=== PATIENT | female | born 1935 | race African-American/Black ===

== ENCOUNTER 2016-06-27 02:26 | Inpatient (IN) | payer MEDICARE, OTHER ==
[2016-06-27] VITALS (19 sets, daily range): BP systolic 132–151; BP diastolic 66–106; Ht 167.6 cm; Wt 57.5 kg
[~2016-06-27] VITALS: Ht 167.6 cm; Wt 57.5 kg
[~2016-06-27 02:26] MED LIST: APRESOLINE10 MG PO; ASPIRIN 81 MG E81 MG PO; CATAPRES0.1 MG PO; LASIX20 MG PO; LORTAB 5/500 TA1 TA2 PO; NORVASC10 MG PO; PRAVACHOL40 MG PO; SODIUM BICARBO650 MG NG; TUMS500 MG PO; ULTRAM50 MG PO
[2016-06-27 03:27] LABS: BASOPHILS 0.4 % (0.0-2.0); EOSINOPHILS 1.4 % (0-7); HEMATOCRIT 32.9 % (36.0-48.0); IMMATURE GRANULOCYTES 0.4 % (0-5); LYMPHOCYTES 12.9 % (15-50); MCH 29.2 pg (26.0-34.0); MCHC 30.4 g/dL (31.0-37.0); MCV 95.9 fL (80.0-100.0); MEAN PLATELET VOLUME 10.1 fL (7.4-10.4); MONOCYTES 3.6 % (2-11); NEUTROPHILS 81.3 % (40-80); PLATELET COUNT 187 10x3/uL (130-400); RBC 3.43 10x6/uL (4.00-5.40); RDW 15.4 % (11.5-14.5)
[2016-06-27 03:36] LABS: ALBUMIN 3.4 g/dL (3.4-5.0); ANION GAP 20.7 mmol/L (8-16); BILIRUBIN - TOTAL 0.42 mg/dL (0.2-1.3); CALCIUM 9.6 mg/dL (8.5-10.1); CREATININE - SERUM 9.7 mg/dL (0.6-1.3); POTASSIUM - SERUM 3.7 mmol/L (3.5-5.1); PROTEIN - SERUM 7.7 g/dL (6.4-8.2)
[2016-06-27 03:56] LABS: TROPONIN-I 0.103 ng/mL (0.000-0.060)
--- NOTE | 2016-06-27 05:26 | NUR ---
PT RECEIVED FROM ER. REPORT RECEIVED FROM ROXANNE DILLARD.PT ADMITTED WITH RESP. DISTRESS. HAS HX OF CHF, AND IS A DIALYSIS PT. DR SIBLEY IS HER USUAL RENAL DOCTOR. HAS RIGHT HAND SALINE LOCK IV. PT WAS ON 60% BIPAP IN ER. NOW AT 6L OXYMISER IN ICU. SAT 98%. PT NOW ABLE TO SPEAK AND ANSWER QUESTIONS. ALERT AND ORIENTED X 4. PT DAUGHTER AT BEDSIDE. SET PASSWORD "PHELPS". PT HAS LEFT UPPER ARM FISTULA, AND HAD ELEVATED PROBNP, AND TROPONIN LEVELS IN ER. PT STILL HAS SHALLOW RESPIRATIONS, AND HAS CRACKLES PRESENT IN MIDDLE AND LOWER LOBES BILAT. VSS WILL CONTINUE TO MONITOR.
--- NOTE | 2016-06-27 07:15 | NUR ---
PT AWAKE AND ALERT. CONVERSANT. SAYS BREATHING MUCH BETTER THAN WHEN FIRST CAME IN. HAS RALES IN LEFT UPPER LOBE, OTHER LOBES CLEAR. NO DISTRESS NOTED. PT ON 6L OXYMIZER.
--- NOTE | 2016-06-27 10:32 | NUR ---
DIALYSIS IN PROGRESS. PT GIVEN A PHONE FOR HER ROOM SO THAT SHE MAY TALK WITH FAMILY.
--- NOTE | 2016-06-27 10:54 | NUR ---
MARKUS KONG PAGED REGARDING H/P REQUEST THAT TOÑITO HAD NOTED. SHE IS NOT AT HOSPITAL AND UNABLE TO DO. SHE WILL LET DR SIBLEY KNOW SHE IS UNABLE.
--- NOTE | 2016-06-27 12:47 | NUR ---
Mrs. Vásquez had bedside hemodialysis today via her left upper arm av fistula form 0830 until 1230. Average blood flow was 400 mls/minute. Net fluid removed today was only 1000 mls due to frequent cramping. Post vital signs were:B/P: 142/77, HR: 71, Temp: 98.0, Resps: 18.
[2016-06-27] MEDS ORDERED: HYDRALAZINE HCL10 MG PO (16:06)
[2016-06-27] MEDS ORDERED: RENA-VITE TABL0.8 MG PO (16:10)
[2016-06-27] MEDS ORDERED: MIRALAX17 GM PO (16:10)
[2016-06-27] MEDS ORDERED: ZOFRAN4 MG PO (16:11)
[2016-06-27] MEDS ORDERED: TESSALON PERLE100 MG PO (16:12)
--- NOTE | 2016-06-27 19:00 | NUR ---
REPORT RECEIVED, AND ASSESSMENT COMPLETED. PT ON NC @ 6L. SAT 97%. ABLE TO AMBULATE TO BEDSIDE COMMODE. VSS. WILL CONTINUE TO MONITOR.
--- NOTE | 2016-06-27 21:00 | NUR ---
2100 MEDS GIVEN. NO HYDRALAZINE IN PYXIS OR IN GLOBAL FIND. NOTIFIED PHARMACY. WILL ADMINISTER UPON ITS ARRIVAL.
--- NOTE | 2016-06-27 23:02 | NUR ---
REASSESSMENT COMPLETED. SEE ASSESSMENT FOR FULL DETAILS. SPOKE WITH DR BEST AND FSBS WILL BE DISCONTINUED. NO OTHER CHANGES AT THIS TIME. VSS. WILL MONITOR.
[2016-06-28] VITALS (12 sets, daily range): BP systolic 89–164; BP diastolic 49–97
--- NOTE | 2016-06-28 01:21 | NUR ---
PT SLEEPING IN ROOM. NO CHANGES AT THIS TIME. VSS. WILL CONTINUE TO MONITOR.
--- NOTE | 2016-06-28 03:00 | NUR ---
PT ASLEEP IN ROOM. NO CHANGES IN STATUS AT THIS TIME. VSS. REASSESSMENT COMPLETED. SEE ASSESSMENT FOR DETAILS.
--- NOTE | 2016-06-28 05:26 | NUR ---
LAB IN ROOM FOR AM DRAW. NO OTHER CHANGES AT THIS TIME. VSS. WILL CONTINUE TO MONITOR.
[2016-06-28 05:56] LABS: BASOPHILS 0.4 % (0.0-2.0); HEMATOCRIT 27.7 % (36.0-48.0); HEMOGLOBIN 8.7 g/dL (12-16); IMMATURE GRANULOCYTES 0.2 % (0-5); LYMPHOCYTES 15.5 % (15-50); MCH 28.8 pg (26.0-34.0); MCHC 31.4 g/dL (31.0-37.0); MCV 91.7 fL (80.0-100.0); MEAN PLATELET VOLUME 10.2 fL (7.4-10.4); MONOCYTES 9.6 % (2-11); NEUTROPHILS 72.3 % (40-80); PLATELET COUNT 168 10x3/uL (130-400); RBC 3.02 10x6/uL (4.00-5.40); RDW 15.4 % (11.5-14.5); WBC 4.6 10x3/uL (4.8-10.8)
[2016-06-28 06:42] LABS: CALCIUM 9.9 mg/dL (8.5-10.1); PHOSPHOROUS 5.4 mg/dL (2.5-4.9)
[2016-06-28 06:44] LABS: ANION GAP 13.7 mmol/L (8-16); CARBON DIOXIDE 30.1 mmol/L (21.0-32.0); CREATININE - SERUM 6.5 mg/dL (0.6-1.3); POTASSIUM - SERUM 4.8 mmol/L (3.5-5.1)
--- NOTE | 2016-06-28 10:14 | NUR ---
REPORT CALLED TO NISHANT ORTIZ ON [facility]. PATIENT WILL BE TAKEN VIA WHEELCHIAR TO ROOM 2130.
--- NOTE | 2016-06-28 10:45 | NUR ---
1025-RECEIVED VIA WHEELCHAIR TO ROOM WITH PORTABLE OXYGEN FROM ICU. DENIES ANY SHORTNESS OF BREATH OR DISCOMFORT. LEFT AVR SEEN WITH + BRUIT AND THRILL. ON 3L PER NC. WILL PLACE ON HEART MONITOR ORDERED.
--- NOTE | 2016-06-28 10:47 | NUR ---
1035- PLACED ON HEART MONITOR SHOWING SR, HR 69.
--- NOTE | 2016-06-28 14:04 | NUR ---
DENIES NEEDS AT PRESENT TIME, WILL CONTINUE TO MONITOR.
--- NOTE | 2016-06-28 15:18 | NUR ---
Patient Name: MILAGRO WALKER Admission Status: ER Accout number: [id number] Admission Date: 06-27-2016 : 1935 Admission Diagnosis: Attending: REMINGTON Current LOS: 1 Anticipated DC Date: 06-29-2016 Planned Disposition: Home Primary Insurance: MEDICARE A & B Discharge Planning Comments: * Is the patient Alert and Oriented? Yes 0 * How many steps to enter\exit or inside your home? NONE 0 * PCP DR. SIBLEY 0 * Pharmacy Shoulder Options, [facility] 0 * Preadmission Environment Home Alone 0 * ADLs Independent 0 * Equipment None 0 * Other Equipment NO MEDICAL EQUIPMENT PROVIDER PREFERENCE 0 * List name and contact numbers for known caregivers / representatives who currently or will assist patient after discharge: EMERALD MONSALVE, DAUGHTER, 0 * Community resources currently utilized Other 0 * Please name any agencies selected above. OUTPATIENT DIALYSIS, [facility], M/W/F, 0640AM, DRIVES SELF TO AND FROM DIALYSIS 0 * Additional services required to return to the preadmission environment? No 0 * Can the patient safely return to the preadmission environment? Yes 0 * Has this patient been hospitalized within the prior 30 days at any hospital? No 0 CM MET WITH PT IN ROOM TO DISCUSS DISCHARGE PLANNING AND NEEDS. PT REPORTS LIVING AT HOME INDEPENDENTLY AND ALONE. PT HAS NO MEDICAL EQUIPMENT AND NO OUTSIDE SERVICES ASSISTING IN THE HOME. PT DRIVES HERSELF TO [facility] ON M/W/ SCHEDULE AT 0640AM. CM DISCUSSED AVAILABILITY OF HOME HEALTH, REHAB SERVICES AND MEDICAL EQUIPMENT. PT DENIES DISCHARGE NEEDS, REPORTS HER DAUGHTER WILL PICK HER UP FOR DISCHARGE HOME. IMPORTANT MESSAGE FROM MEDICARE PROVIDED AND EXPLAINED Explosives Worker: Brandan Rincon
--- NOTE | 2016-06-28 17:35 | NUR ---
PATIENT DENIES NEEDS AT PRESENT TIME. WILL CONTINUE TO MONITOR AND ASSESS OFTEN FOR NEEDS. CALL LIGHT IS IN USE.
--- NOTE | 2016-06-28 19:25 | NUR ---
RECEIVED REPORT, RESERVED L. GONZALEZ MITCHELL,IV-R.HAND-SL, [id number], FAMILY AT BED SIDE, CALL LIGHT IN REACH, BED IS LOW, SRX2, DENIES ANY NEEDS, WILL MONITOR
[2016-06-29 01:10] VITALS: BP 159/73
--- NOTE | 2016-06-29 01:14 | NUR ---
PT LAYING IN BED NO DISTRESS OBSERVED CALL LIGHT INR EACH SRX2 BED LOW AND LOCKED WILL MONITOR
[2016-06-29 04:00] VITALS: BP 154/109
--- NOTE | 2016-06-29 06:07 | NUR ---
PT SITTING IN CHAIR AT SINK WASHING UP, DENIES ANY NEEDS
[2016-06-29 06:38] LABS: HEMATOCRIT 30.8 % (36.0-48.0); HEMOGLOBIN 9.7 g/dL (12-16); IMMATURE GRANULOCYTES 0.2 % (0-5); LYMPHOCYTES 10.3 % (15-50); MCHC 31.5 g/dL (31.0-37.0); MCV 91.9 fL (80.0-100.0); MEAN PLATELET VOLUME 9.8 fL (7.4-10.4); MONOCYTES 11.7 % (2-11); NEUTROPHILS 74.8 % (40-80); PLATELET COUNT 174 10x3/uL (130-400); RBC 3.35 10x6/uL (4.00-5.40); RDW 15.4 % (11.5-14.5)
[2016-06-29 07:11] LABS: ANION GAP 17.6 mmol/L (8-16); CALCIUM 9.5 mg/dL (8.5-10.1); CARBON DIOXIDE 27.2 mmol/L (21.0-32.0); PHOSPHOROUS 5.5 mg/dL (2.5-4.9); POTASSIUM - SERUM 4.8 mmol/L (3.5-5.1)
[2016-06-29 07:13] LABS: CREATININE - SERUM 8.5 mg/dL (0.6-1.3)
--- NOTE | 2016-06-29 07:23 | NUR ---
RECIEVED REPORT ON PATIENT, PATIENT IS ALERT AND ORIENTED AT THIS TIME. PATIENT HAS A R HAND IV THAT IS SL AT THIS TIME. PATIENT IS SR ON MONITOR WITH A RATE OF 72 AT THIS TIME. PATIENT IS WEARING 3L/MIN VIA NC WITH NAD NOTED AT THIS TIME. CHEST RISES AND FALLS EQUALLY. PATIENT DENIES ANY NEEDS OR PAINA T THIS TIME. CPOC
[2016-06-29 08:12] VITALS: BP 145/67
--- NOTE | 2016-06-29 10:31 | NUR ---
TEACHING MATERIAL FOR CHF PROVIDED TO PATIENT
--- NOTE | 2016-06-29 10:35 | NUR ---
PATIENT GONE TO DIAYLSIS. CPOC
--- NOTE | 2016-06-29 14:30 | NUR ---
PATIENT BACK FROM DIAYLSIS. DENIES ANY NEEDS OR PAIN AT THIS TIME. CPOC
--- NOTE | 2016-06-29 16:00 | NUR ---
PATIENT SITTING UP IN BED, VISITORS AT BEDSIDE. PATIENT DENIES ANY PAIN OR NEEDS. CPOC
[2016-06-29 16:25] VITALS: BP 142/62
--- NOTE | 2016-06-29 18:38 | NUR ---
PATIENT SITTING UP IN BED, FAMILY AT BEDSIDE. PATIENT DENIES ANY NEEDS OR COMPLAINTS. CPOC
--- NOTE | 2016-06-29 19:25 | NUR ---
RECEIVED REPORT, PT ALERT, ORINATED,UP AB ROMA, 02-3L, IV-R. HAND-SL, [id number], DENIES ANY NEEDS, CALL LIGHT IN REACH, BED IS LOW, SRX2
[2016-06-29 20:00] VITALS: BP 137/81
[2016-06-30] VITALS: BP 140/84
--- NOTE | 2016-06-30 02:26 | NUR ---
LYING IN BED WITH CALL LIGHT IN REACH. WILL CONTINUE WITH PLAN OF CARE.
[2016-06-30 04:00] VITALS: BP 133/67
--- NOTE | 2016-06-30 05:11 | NUR ---
SLEEPING, BED IS LOW, SRX2, CALL LIGHT IN REACH
[2016-06-30 06:39] LABS: BASOPHILS 0.5 % (0.0-2.0); EOSINOPHILS 4.7 % (0-7); HEMATOCRIT 30.1 % (36.0-48.0); HEMOGLOBIN 9.3 g/dL (12-16); IMMATURE GRANULOCYTES 0.3 % (0-5); LYMPHOCYTES 17.8 % (15-50); MCH 28.7 pg (26.0-34.0); MCHC 30.9 g/dL (31.0-37.0); MCV 92.9 fL (80.0-100.0); MEAN PLATELET VOLUME 9.9 fL (7.4-10.4); MONOCYTES 12.3 % (2-11); NEUTROPHILS 64.4 % (40-80); PLATELET COUNT 169 10x3/uL (130-400); RBC 3.24 10x6/uL (4.00-5.40); WBC 3.8 10x3/uL (4.8-10.8)
[2016-06-30 07:02] LABS: ANION GAP 12.1 mmol/L (8-16); CALCIUM 9.3 mg/dL (8.5-10.1); CARBON DIOXIDE 33.3 mmol/L (21.0-32.0); CREATININE - SERUM 6.2 mg/dL (0.6-1.3); POTASSIUM - SERUM 4.4 mmol/L (3.5-5.1)
--- NOTE | 2016-06-30 07:15 | NUR ---
RECIEVED REPORT ON PATIENT. PATIENT IS ALERT AND ORIENTED AT THIS TIME, SITTING ON SIDE OF BED. PATIENT HAS A R HAND IV THAT IS SL AT THIS TIME. PATIENT IS SR ON MONITOR WITH A RATE OF 79 AT THIS TIME. PATIENT DENIES ANY PAIN AT THIS TIME, WANTING TO GO HOME. WILL TALK WITH DR. RESTREPO
[2016-06-30 08:43] VITALS: BP 100/47
--- NOTE | 2016-06-30 09:30 | NUR ---
PATIENT GIVEN MORNING MEDICATIONS, ASSESSMENT DONE. PATIENT DENIES ANY PAIN AT THIS TIME. PATIENT BED LOW AND LOCKED. CALL LIGHT IN REACH. WILL CONT TO MONITOR PATIENT. CPOC
--- NOTE | 2016-06-30 12:00 | NUR ---
PATIENT SITTING ON SIDE OF BED EATING LUNCH, DENIES ANY NEEDS AT THIS TIME. CPOC
[2016-06-30 12:11] VITALS: BP 126/62
--- NOTE | 2016-06-30 13:50 | NUR ---
patient ambulating bear way with physcial therapy at this time, cpoc
--- NOTE | 2016-06-30 15:00 | NUR ---
SPOKE WITH PATIENT REGUARDING HOME HEALTH AND DIAN WITH PT SUGGESTED THAT PATIENT NEEDS HOME HEALTH. PATIENT STATES UNDERSTANING, WILL TALK WITH CASE MANAGEMENT. CPOC
[2016-06-30 16:00] VITALS: BP 118/73
--- NOTE | 2016-06-30 16:05 | NUR ---
Patient Name: MILAGRO WALKER Encounter No: [id number] : 1935 Primary Insurance: MEDICARE A & B Anticipated DC Date: 07-01-2016 Planned Disposition: Home DCP follow-up note: CM RECEIVED ORDER FOR DISCHARGE PLANNING. CM MET WITH PT AND DAUGHTER IN ROOM TO DISCUSS DISCHARGE PLANNING AND NEEDS. CM DISCUSSED AVAILABILITY OF HOME HEALTH, REHAB SERVICES AND MEDICAL EQUIPMENT. PT DENIES DISCHARGE NEEDS, STATES THE THERAPIST THOUGHT SHE NEEDS HOME HEALTH BUT PT DOES NOT. CM OFFERED TO HAVE HOME HEALTH CALL PT AFTER DISCHARGE TO CHECK ON HER TO SEE IF SHE NEEDED SERVICES AT HOME AFTER DISCHARGE. PT WILL THINK ABOUT HOME HEALTH AND LET CM KNOW IF SHE CHANGES HER MIND. PT REPORTS HER DAUGHTER WILL PICK HER UP FOR DISCHARGE HOME. IMPORTANT MESSAGE FROM MED[employer]ARE PROVIDED AND EXPLAINED (PT SIGNED AFTER HER DAUGHTER READ IT FOR HER.) Brandan Rincon, CASE MANAGEMENT
--- NOTE | 2016-06-30 18:28 | NUR ---
PATIENT SITTING UP IN BED, DENIES ANY PAIN OR NEEDS. CPOC
--- NOTE | 2016-06-30 19:35 | NUR ---
RESUMED CARE OF PT, FAMILY VISITING, IV-R.HAND-SL, [id number], BED IS LOW, SRX2, CALL LIGHT IN REACH, WILL CONTINUE TO MONITOR
[2016-06-30 20:00] VITALS: BP 121/63
[2016-07-01 04:00] VITALS: BP 135/60
--- NOTE | 2016-07-01 05:03 | NUR ---
CALL LIGHT IN REACH, WILL CONTINUE WITH PLAN OF CARE.
--- NOTE | 2016-07-01 06:20 | NUR ---
SITTING ON SIDE OF BED, DENIES ANY NEEDS, CALL LIGHT IN REACH, BED LOW
--- NOTE | 2016-07-01 07:45 | NUR ---
INTRODUCED MYSELF TO PT PRIMARY RN FOR TODAYS SHIFT. PT IS ALERT AND ORIENTED RESTING QUIETLY IN BED WATCHING TV. RR NONLABORED WITH NC @2L IN PLACE. PT IS BEING DISCHARGED AFTER DIALYSIS TODAY AND IS REQUESTING TO HAVE HER PIV TAKEN OUT. REMOVED R.HAND PIV WITH CATHETER TIP FULLY INTACT, BANDAID OVER INSERTION SITE. PT VOICED THANKS. PT RESTING AND DENIES ANY FURTHER NEEDS AT THIS TIME. CL IN REACH, BED IN LOWEST, SIDE RAILS X2. WILL CPOC.
[2016-07-01 08:55] VITALS: BP 147/64
--- NOTE | 2016-07-01 08:58 | NUR ---
PT LEAVING FOR DIALYSIS AT THIS TIME.
[2016-07-01] MEDS ORDERED: HYDRALAZINE HCL25 MG PO (09:44)
[2016-07-01] MEDS ORDERED: ISOSORBIDE DINI20 MG PO (09:45)
[2016-07-01] MEDS ORDERED: COREG 3.1253.125 MG PO (09:45)
--- NOTE | 2016-07-01 11:11 | EC ---
PATIENT:MILAGRO WALKER DATE OF SERVICE: 06/27/16 SEX: F MEDICAL RECORD: [id number] DATE OF : [birth year] LOCATION:D.M2 D.213 AGE OF PATIENT: 81 ADMISSION DATE: 06/27/16 REFERRING PHYSICIAN: INTERPRETING PHYSICIAN: KARLEY LONDONO MD ECHOCARDIOGRAM REPORT ECHO CHARGES 4 ECHO COMPLETE CLINICAL DIAGNOSIS: CHF ECHOCARDIOGRAPHIC MEASUREMENTS (adult normal given) AC root (d.<3.7cm) 3.3 LV Septum d (<1.2 cm> 1.1 Valve Excursion 1.3 LV Septum (systole) 1.6 Left Atria (s.<4.0cm> 2.8 LVPW d(<1.2cm) 0.9 RV (d.<2.3cm) 2.5 LVPW (sytole) 1.4 LV diastole(<5.6CM) 6.3 MV E-F(>70mm/sec) LV systole 4.6 LVOT Diameter 1.8 MV exc.(>10mm) Est.ejection fraction (50-75%) Pericardial Effusion N DOPPLER: LVIT A 30.0 E 121 LA RVSP 76.2 LVOT 111 AOP1/2T 558.0 Asc. Ao 200 RVOT 86.0 RA PA 94.0 AV Gradient Peak 16.0 AV Mean 7.8 AV Area 1.2 MV Gradient Peak 5.0 MV Mean 1.9 MV Area COMMENTS: Oil Dispatcher: Josep SMITHOE Disability Counselor:2 Dr. Gonzalez TAPE# PACS DATE OF SERVICE: 06/27/2016 Echocardiogram FINDINGS: 1. Left ventricular chamber size is mildly dilated. Left ventricular systolic function is mildly reduced, overall ejection fraction is 40%. 2. Left atrium is within normal limits at 2.8 cm, right atrium and right ventricle chamber sizes are csig-uo-bgnpabghnd dilated. 3. Valvular structures have normal structure and motion. ECHOCARDIOGRAM REPORT [id number] MILAGRO WALKER 4. Doppler interrogation reveals mild aortic insufficiency, moderate mitral regurgitation, hqohuqvt-zv-vplpac tricuspid regurgitation, no other valvular insufficiency or stenosis. Pulmonary systolic pressure is markedly elevated estimated at 76 mmHg. 5. No evidence of pericardial effusion or left ventricular thrombus. TRANSINT:[id number] Voice Confirmation ID: [id number] DOCUMENT ID: [id number] KARLEY LONDONO MD at 1111 CC: [id number] DICTATION DATE: 06/27/16 1235 JUMPBASTING ARMHOLE BASTER: 06/27/16 1406 ADM IN [place] [id number] [place] [id number]
--- NOTE | 2016-07-01 12:56 | NUR ---
PT RETURNED FROM DIALYSIS. RR NONLABORED WITH NC @2L IN PLACE. PT ONLY HAD 1.5L PULLED WITH GOAL OF 2-3L HOWEVER PTS BP DROPPED TO 94/55 SO DIALYSIS NURSE STOPPED. PT RESTING IN ROOM AND DENIES ANY CURRENT PAIN OR NEEDS AT THIS TIME. CL IN REACH, BED IN LOWEST, SIDE RAILS X2. WILL CPOC.
--- NOTE | 2016-07-01 13:00 | NUR ---
HEMODIALYSIS COMPLETED VIA PATIENT'S LUE AVF, 15G NEEDLES, 400 BFR. REMOVED 1.5 LITERS, PATIENT HAD A DROP IN BP TOWARDS END OF TX AND HAD TO STOP PULLING FLUID. BLOOD WAS RETURNED, NEEDLES WERE PULLED, AND HEMOSTASIS WAS ACHEIVED. PATIENT TAKEN BACK TO ROOM VIA WC.
--- NOTE | 2016-07-01 13:36 | NUR ---
DISCHARGE TEACHING DONE. PAPERS SIGNED AND COLLECTED. PT IS RESTING QUIETLY WITH DAUGHTER AT BEDSIDE READY TO TAKE HER HOME. REMOVED TELEMETRY AND RETURNED TO [employer]. NO FURTHER NEEDS.
--- NOTE | 2016-07-08 07:24 | DS ---
PATIENT:MILAGRO WALKER :[birth year] MEDICAL RECORD: [id number] DISCHARGE SUMMARY ADMISSION DATE: 06/27/16 DISCHARGE DATE: 07/01/16 HISTORY OF PRESENT ILLNESS: Ms. Walker is an 81-year-old white female with end-stage renal disease, dialyzing 3 times weekly at [facility], admitted on Monday night prior to her Monday dialysis with shortness of breath. HOSPITAL COURSE: The patient underwent recurrent vigorous dialysis and her shortness of breath improved. She had an echocardiogram that revealed no evidence of pericardial effusion with valvular disease with adequate ejection fraction. She had no chest pain during this time and her symptoms completely resolved with significant lowering of her dry weight. Her telemetry strips were stable and she was ambulatory at the time of discharge. I did substitute the beta blockers and nitrates for her current antihypertensives and she was substituting this at the time of discharge. DISCHARGE DIAGNOSES: 1. Recurrent biventricular heart failure on the basis of volume overload. 2. End-stage renal disease. 3. Hypertension. 4. Chronic anemia. PLAN: The patient will be discharged today after dialysis. She will resume her outpatient dialysis schedule with [facility]. She should continue her renal diet. DISCHARGE MEDICATIONS: Will be Isordil 20 mg at bedtime, Coreg 3.125 b.i.d., hydralazine 25 b.i.d. She will continue Epogen as an outpatient, Nephro-Aleida 1 daily, MiraLax p.r.n., calcium carbonate 1000 mg t.i.d. with meals, baby aspirin 1 daily and her p.r.n. medications. TRANSINT:[id number] Voice Confirmation ID: [id number] DOCUMENT ID: [id number] AVNI SIBLEY MD at 0724 CC: [id number] DICTATION DATE: 07/01/16 0740 HOSPITAL CNA: 07/01/16 0804 DIS IN 07/01/[address] [address]
== END 2016-07-01 13:42 | disposition home or self-care (01) | DRG 291 ==
LOC: D.ER 02:26 → D.M2 04:02 → D.ICU 04:02 → D.M2 06-28 10:16 → EDBD 07-01 13:42
PROVIDERS: Emergency Medicine; ADMIT Internal Medicine Nephrology
DX: I50.33 Acute on chronic diastolic (congestive) heart failure (principal); N18.6 End stage renal disease; J81.1 Chronic pulmonary edema; I12.0 Hypertensive chronic kidney disease with stage 5 chronic kidney disease or end stage renal disease; D63.1 Anemia in chronic kidney disease; E11.9 Type 2 diabetes mellitus without complications

== ENCOUNTER → 2016-08-22 11:09 | Outpatient (CLI) | payer MEDICARE, OTHER ==
[2016-06-27 09:27] VITALS: BMI 22.2
[~2016-08-22 11:09] MED LIST changes: +COREG 3.1253.125 MG PO; +HYDRALAZINE HCL10 MG PO; +HYDRALAZINE HCL25 MG PO; +ISOSORBIDE DINI20 MG PO; +MIRALAX17 GM PO; +RENA-VITE TABL0.8 MG PO; +TESSALON PERLE100 MG PO; +ZOFRAN4 MG PO
== END | disposition home or self-care (01) ==
LOC: EDBD 11:09 → D.RAD 11:09
DX: M54.5 Low back pain (principal); M25.551 Pain in right hip

== ENCOUNTER → 2016-08-26 12:32 | Outpatient (CLI) | payer MEDICARE, OTHER ==
[2016-06-27 09:27] VITALS: BMI 22.2
== END | disposition home or self-care (01) ==
LOC: EDBD 12:32 → D.CT 12:32
DX: M54.5 Low back pain (principal); M25.551 Pain in right hip; I72.9 Aneurysm of unspecified site

== ENCOUNTER 2016-08-31 14:03 | Inpatient (IN) | payer MEDICARE, OTHER ==
[~2016-08-31] VITALS: Ht 167.6 cm; Wt 52.7 kg
--- NOTE | ~2016-08-31 | HEMODYNAMI ---
PATIENT:MILAGRO WALKER MEDICAL RECORD: [id number] : [birth year] [id number] ADMISSION DATE: 08/31/16 Generatedon:09/02/201614:32 Patient name: MILAGRO WALKER Patient #: [id number] SSN: : 06/01/1934 Date of study: 09/02/2016 Page: Of Hemodynamic Procedure Report Patient Data Patient Demographics Procedure consent was obtained First Name: MILAGRO Gender: Female Last Name: AARON : 06/01/1934 [facility] Initial: S Age: 82 year(s) Patient #: [id number] Race: Black Additional ID: [id number] Contact details Address: [address] [place] [address] State: [place] City: [facility] [place] Zip code: [address] Past Medical History Allergies: No known allergies Admission Admission Data Admission Date: 08/31/2016 Admission Time: 14:03 Room #: D.2135 Weight (lbs.): 145 Weight (kg.): 65.77 Procedure Procedure Types Cath Procedure Peripheral Cath Diagnostic Procedure Miscellaneous Procedure Description Procedure Date Procedure Date: 09/02/2016 Procedure Start Time: 13:47 Procedure Staff Name Function Rogers Guardado MD Performing Physician Tanisha Barraza RT Scrub Nava Bazzi RN Nurse Kaye Vergara RT Monitor Debi Garcia RN Nurse Kaye Vergara RT Planer Tailer Procedure Data Cath Procedure Fluoroscopy Diagnostic fluoroscopy Total fluoroscopy Time: 5.7 time: 5.7 min min Diagnostic fluoroscopy Total fluoroscopy dose: 749 dose: 749 mGy mGy Contrast Material Contrast Material Type Amount (ml) Isovue 300 85 Entry Location Entry Primary Successful Side Size Upsize Upsize Entry Closure Succes sful Closure Location (Fr) 1 (Fr) 2 (Fr) Remarks Device Remarks Femoral Exoseal artery Diagnostic catheters Device Type Used For End Catheter Placement Merit Impress 5Fr SIM 1 Catheter Merit ULTRA BOLUS FLUSH 5Fr 65CM catheter Procedure Medications Medication Administration Route Dosage Fentanyl I.V. 50 mcg Versed I.V. 1 mg Fentanyl I.V. 50 mcg Versed I.V. 1 mg Hydralizine I.V. 10 mg Hemodynamics Rest Heart Rate: 50 (bpm) Pressure Samples Time Site Value (mmHg) Purpose Heart Use Rate(bpm) 14:15 AO 174/53(101) Snapshot 45 14:17 AO 145/50(85) Snapshot 43 Snapshots Pre Cath Intra NCS Post Cath Vital Signs Time Heart Resp SPO2 NIBP (mmHg) Rhythm Pain Sedation Rate (ipm) (%) Status Level (bpm) 13:24:14 50 14 189/62(146) NSR 0 (11) 10(A) , No pain 13:28:56 53 14 191/68(149) NSR 0 (11) 10(A) , No pain 13:33:37 56 21 196/74(151) NSR 0 (11) 10(A) , No pain 13:36:46 53 12 193/48(146) NSR 0 (11) 10(A) , No pain 13:41:26 50 12 190/72(142) NSR 0 (11) 10(A) , No pain 13:46:05 63 22 192/76(149) NSR 0 (11) 9(A) , No pain 13:50:45 59 21 100 179/66(144) NSR 0 (11) 9(A) , No pain 13:55:24 51 23 97 186/59(132) NSR 0 (11) 9(A) , No pain 14:00:09 50 19 100 186/55(137) NSR 0 (11) 9(A) , No pain 14:04:51 51 16 100 175/55(134) NSR 0 (11) 9(A) , No pain 14:09:30 50 17 100 182/54(142) NSR 0 (11) 9(A) , No pain 14:14:10 53 21 100 190/61(132) NSR 0 (11) 9(A) , No pain 14:18:53 52 21 187/64(143) NSR 0 (11) 9(A) , No pain 14:23:36 48 13 187/57(137) NSR 0 (11) 9(A) , No pain 14:28:12 56 14 100 172/74(151) NSR 0 (11) 9(A) , No pain Medications Time Medication Route Dose Verified Delivered Reason Notes Effecti taimerrill by by 13:42:04 Versed I.V. 1 mg Debi Debi for sedation Radha Garcia RN RN 13:42:21 Fentanyl I.V. 50 Debi Debi for sedation mcg Radha Garcia RN RN 14:15:59 Fentanyl I.V. 50 Debi Debi for sedation mcg Radha Garcia RN RN 14:16:18 Versed I.V. 1 mg Debi Debi for sedation Radha Garcia RN RN 14:23:16 Hydralizine I.V. 10 mg Debi Debi for Radha Garcia hypertension RN cement handler Log Time Note 13:20:20 Patient Weight : 145 kg 13:20:24 Time tracking: Regular hours 13:20:47 Use device set IR Diagnostic 13:20:50 Sterile Angiographic Pack opened to sterile field. 13:20:52 Bag Decanter opened to sterile field. 13:20:53 Acist Manifold opened to sterile field. 13:20:54 Acist Hand Control opened to sterile field. 13:20:55 Acist Syringe opened to sterile field. 13:22:05 A mPort Impress 5Fr SIM 1 Catheter was advanced over the wire and used for . 13:22:07 Cook BENTSON 145cm guide wire opened to sterile field. 13:22:08 St Farhad 5FR Sheath opened to sterile field. 13:22:09 TUBING, CONTRAST INJCTN HI PRES opened to sterile field. 13:22:20 - 13:22:28 Plan of Care:Hemodynamics will remain stable., Cardiac rhythm will remain stable., Comfort level will be maintained., Respiratory function will remain adequate., Patient/ family verbilizes understanding of procedure., Procedure tolerated without complication., Recovers from procedure without complications.. 13:22:39 Patient received from Med II to IR Alert and oriented. Tansferred to table in Supine position. 13:22:41 Correct patient and procedure confirmed by team. 13:22:43 Signed procedure consent form obtained from patient. 13::44 ECG and BP/O2 sat monitors applied to patient. 13::45 Vital chart was started 13:22:47 Baseline sample Acquired. 13:22:49 Full Disclosure recording started 13:22:50 - 13:22:57 H&P Date Dictated: 09/02/2016 Within 30 days and on chart.. 13:23:01 Pre-procedure instructions explained to patient. 13:23:02 Pre-op teaching completed and patient verbalized understanding. 13:23:08 Family in waiting room. 13:23:12 Patient NPO since Midnight. 13:23:22 Patient allergic to No known allergies 13:23:30 Is the patient allergic to Iodine/contrast media? No. 13:24:20 Is patient on blood thinner?No 13:25:35 Patient diabetic? No. 13:25:36 - 13:25:38 ----Pre-sedation anethsthesia assessment.---- 13:25:42 Previous problem with sedation/anesthesia? No ? 13:25:54 Snore? Yes 13:26:00 Sleep apnea? No 13:26:04 Deviated septum? No 13:26:06 Opens mouth fully? Yes 13:26:08 Sticks out tongue? Yes 13:26:13 Airway obstruction? No ? 13:26:19 Dentures? Yes secure 13:26:36 IV patent on arrival in right forearm with 0.9% NaCl at [facility]. 13:32:03 Pre procedure: right dorsailis pedis pulse Doppler 13:32:07 Pre procedure: right posterior tibial pulse Doppler 13:32:11 Pre procedure: left dorsailis pedis pulse Doppler 13:32:16 Pre procedure: left posterior tibial pulse Doppler 13:32:24 Right groin area was prepped with chlora-prep and draped in sterile fashion 13:32:26 Alarms reviewed by R. N. 13:32:27 Sharps counted by scrub and verified by R.N. 13:32:27 - 13:36:08 Micropuncture VSI 4FR kit opened to sterile field. 13:41:11 A mPort ULTRA BOLUS FLUSH 5Fr 65CM catheter was advanced over the wire and used for . 13:41:15 Physician arrived 13:42:04 Versed 1 mg I.V. was administered by Debi Garcia RN; for sedation; 13:42:21 Fentanyl 50 mcg I.V. was administered by Debi Garcia RN; for sedation; 13:43:02 --------ALL STOP TIME OUT------ 13:43:03 Final Timeout: patient, procedure, and site verified with staff and physician. All members of the team are in agreement. 13:43:14 Physical assessment completed. ASA score P 3 - A patient with severe systemic disease as per Rogers Gaurdado MD. 13:43:20 Sedation plan: IV Moderate Sedation Versed, Fentanyl 13:47:30 Procedure started. 13:47:34 Local anesthetic to right femoral artery with Lidocaine 1% by Rogers Guardado MD.INITIAL ACCESS ONLY 13:47:45 Arterial access obtained using ultrasound guidance. 14:14:17 Zero performed for pressure channel P1 14:14:26 Zero performed for pressure channel P1 14:15:14 Zero performed for pressure channel P1 14:15:59 Fentanyl 50 mcg I.V. was administered by Debi Garcia RN; for sedation; 14:16:18 Versed 1 mg I.V. was administered by Debi Garcia RN; for sedation; 14:23:15 Cordis 5Fr Exoseal opened to sterile field. 14:23:16 Hydralizine 10 mg I.V. was administered by Debi Garcia RN; for hypertension; 14:24:03 A sheath was inserted into the Femoral artery 14:24:03 Sheath removed intact; hemostasis achieved with Exoseal to the Femoral artery. 14:24:08 Procedure ended.(Physican Out) 14:24:43 Fluoroscopy time 05.70 minutes. 14:24:51 Fluoroscopy dose: 749 mGy 14:24:51 Flurop Dose total: 749 14:25:03 Contrast amount:Isovue 300 85ml. 14:25:05 Sharps counted by scrub and verified by R.N. 14:25:21 Procedure and supply charges have been captured, reviewed, submitted an d are correct. 14:32:26 Vital chart was stopped Device Usage Item Name Manufacture Quantity Catalog Number Hospital Part Current Min imal Lot# / Charge Number Stock Stock Serial# Code Sterile Cardinal 1 [id number] 5 Angiographic Health Pack Bag Decanter Microtek 1 2002 [id number] 38992 [id number] 5 Medical Inc. Acist Acist 1 49682 931486 745425 277110 5 Manifold Medical Systems Inc Acist Hand Acist 1 05653 946080 945759 117801 5 Control Medical Systems Inc Acist Syringe Acist 1 04617 875509 311779 202791 20 Medical Systems Inc Merit Impress Merit 1 [id number] 015355 718098 082455 5 5Fr SIM 1 Medical Catheter [facility] 1 [id number] [id number] 5 [id number] 145cm guide wire [facility] Farhad 5FR St Farhad 1 545359 948523 169875 5 [id number] Sheath TUBING, Merit 1 [id number] 466250 205420 604933 5 CONTRAST Medical INJCTN HI PRES Micropuncture VSI VASCULAR 1 [id number] 187065 176245 5 VSI 4FR kit SOLUTIONS Merit ULTRA Merit 1 [id number] 674590 078540 5 BOLUS FLUSH Medical 5Fr 65CM catheter Cordis 5Fr Cardinal 1 [id number] [id number] 226649 [id number] 10 [id number] Exoseal Health Signature Audit [place] Stage Time Signature Unsigned Intra-Procedure 09/02/2016 Kaye Vergara 2:32:24 PM RT(R) Signatures Monitor : Kaye Vergara RT Signature : Date : Time : [facility] [address] [place] [address]
[2016-08-31 14:22] VITALS: BP 142/62; BMI 23.4
[2016-08-31 15:05] LABS: BASOPHILS 1.1 % (0.0-2.0); HEMATOCRIT 34.6 % (36.0-48.0); HEMOGLOBIN 10.9 g/dL (12-16); IMMATURE GRANULOCYTES 0.3 % (0-5); MCH 29.5 pg (26.0-34.0); MCHC 31.5 g/dL (31.0-37.0); MCV 93.8 fL (80.0-100.0); MEAN PLATELET VOLUME 9.2 fL (7.4-10.4); MONOCYTES 10.7 % (2-11); NEUTROPHILS 65.9 % (40-80); PLATELET COUNT 178 10x3/uL (130-400); RBC 3.69 10x6/uL (4.00-5.40); RDW 16.2 % (11.5-14.5); WBC 3.6 10x3/uL (4.8-10.8)
--- NOTE | 2016-08-31 15:16 | NUR ---
PT ASSESSMENT COMPELTED PT LAYING IN BED NO DISTRESS OBSERVED CALL LIGHT IN REACHS RX2 BED LOW AND LOCKED PT AMBULATORY WITH NO DISTRESS OBSERVED RESPERATIONS EVEN AND UNLABORED PT DENIES NEEDS OR WANTS AT THIS TIME WILL MONITOR
[2016-08-31 15:36] LABS: INR 1.01 (0.85-1.17); PROTIME 13.1 SECONDS (11.6-15.0)
[2016-08-31 15:37] LABS: ALBUMIN 3.3 g/dL (3.4-5.0); ANION GAP 13.8 mmol/L (8-16); BILIRUBIN - TOTAL 0.28 mg/dL (0.2-1.3); CALCIUM 8.6 mg/dL (8.5-10.1); CARBON DIOXIDE 31.1 mmol/L (21.0-32.0); CREATININE - SERUM 4.5 mg/dL (0.6-1.3); POTASSIUM - SERUM 3.9 mmol/L (3.5-5.1); PROTEIN - SERUM 6.9 g/dL (6.4-8.2)
[2016-08-31 16:00] VITALS: BP 142/52
--- NOTE | 2016-08-31 19:30 | NUR ---
RESUMED CARE OF PT, ON ROOM AIR, IV-R.HAND-SL, RESERVED L.ARM, A&O, UP ABLIB, DENIES ANY NEEDS, CALL LIGHT IN REACH, WILL CONTINUE TO MONITOR
[2016-08-31 21:39] VITALS: BP 124/51
--- NOTE | 2016-09-01 00:37 | NUR ---
CERAMIC CAPACITOR PROCESSOR AT BEDSIDE TO OBTAIN VITALS, CALL LIGHT IN REACH. WILL CONTINUE WITH PLAN OF CARE.
[2016-09-01 01:40] VITALS: BP 119/41
[2016-09-01 04:56] VITALS: BP 134/60
[2016-09-01 06:49] LABS: BASOPHILS 0.8 % (0.0-2.0); EOSINOPHILS 3.1 % (0-7); HEMATOCRIT 32.6 % (36.0-48.0); HEMOGLOBIN 10.1 g/dL (12-16); IMMATURE GRANULOCYTES 0.3 % (0-5); LYMPHOCYTES 22.8 % (15-50); MCV 93.7 fL (80.0-100.0); MEAN PLATELET VOLUME 9.4 fL (7.4-10.4); MONOCYTES 14.1 % (2-11); NEUTROPHILS 58.9 % (40-80); PLATELET COUNT 178 10x3/uL (130-400); RBC 3.48 10x6/uL (4.00-5.40); RDW 16.2 % (11.5-14.5); WBC 3.6 10x3/uL (4.8-10.8)
[2016-09-01 07:03] LABS: INR 1.03 (0.85-1.17); PROTIME 13.4 SECONDS (11.6-15.0)
[2016-09-01 07:06] LABS: ANION GAP 11.4 mmol/L (8-16); CALCIUM 9.1 mg/dL (8.5-10.1); CARBON DIOXIDE 30.8 mmol/L (21.0-32.0); POTASSIUM - SERUM 4.2 mmol/L (3.5-5.1)
[2016-09-01 07:09] LABS: CREATININE - SERUM 6.2 mg/dL (0.6-1.3)
--- NOTE | 2016-09-01 07:19 | HP ---
PATIENT: MILAGRO WALKER MEDICAL RECORD: [id number] ACCOUNT: [id number] LOCATION:D. D.2135 : [birth year] ADMISSION DATE: 08/31/16 HISTORY AND PHYSICAL EXAMINATION ADMISSION FOR: Abdominal pain and flank pain. HISTORY OF PRESENT ILLNESS: This is a nice ESRD patient born in 1934 and was having pain in her left flank or abdominal area rotating down to her left hips. 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 Dr. 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 We did attempt to admit her August 30, she had declined, but she is ready for admission today and will hopefully present to the hospital for evaluation. PAST MEDICAL HISTORY: 1. ESRD on dialysis. 2. Hysterectomy and fistula placement. 3. Hypertension. 4. Hyperphosphatemia. 5. Chronic constipation. 6. Secondary hyperparathyroidism. 7. Edema. HOME MEDICATIONS: Lasix, which she may not be taking now. She is no longer taking amlodipine 10 mg at night. She is taking Hydralazine 25 mg in the morning, but not on dialysis days, MiraLax p.r.n., Zofran 4 mg p.r.n., Tums 1000 mg t.i.d. with meals and aspirin 81 a day. She is no longer taking her pravastatin, but does have a history of hyperlipidemia as well. FAMILY HISTORY: One of her parents had diabetes, she was unsure which one and natural child has diabetes. No known siblings. SOCIAL HISTORY: Never smoked, no alcohol, no drug use. REVIEW OF SYSTEMS: As described above. No headache, fever, chills, nausea or vomiting at this time. No chest pain or shortness of breath. No problems with her dialysis access or dialysis process, no hematuria, no melena or hematochezia. All review of systems are negative. PHYSICAL EXAMINATION: VITAL SIGNS: She is 125/72, 72 heart rate, 18 respiratory rate. GENERAL: She is alert and oriented to person, place and dialysis. HEENT: Grossly clear. Cranial nerves II through XII intact. NECK: No JVD or thyromegaly. CHEST: Regular rhythm. LUNGS: Clear. ABDOMEN: Nontender with no guarding or rebound. No CVA tenderness, no lumbar tenderness in her spine. EXTREMITIES: Trace lower extremity edema. Negative Babinski. HISTORY AND PHYSICAL [id number] MILAGRO WALKER LABORATORY DATA: CMP, CBC, INR has been ordered. CTA was done 08/26/2016 and some of this has been resulted and available in the computer at [place]. ASSESSMENT AND PLAN: 1. Abdominal pain and back pain. I appreciate Dr. Aguilar reviewing her CTA was concerned about her SFA and celiac artery and he recommended IR evaluation as she is having abdominal pain. It was unclear of the exact area in her pain, but we will be cautious and have IR consulted. 2. End-stage renal disease, had dialysis today, Monday; once Monday, Monday, Monday with her fistula. 3. Hypertension, now on 2 medications, ____ hydralazine. She is also on the medication list that the nurse ____ to me on isosorbide dinitrate 20 mg at night. 4. Chronic constipation. We will continue her MiraLax. 5. Anemia of chronic kidney disease. We will continue erythropoietin prescription as her hemoglobin is less than 12. 6. Hyperphosphatemia. We will continue her Tums 1000 mg t.i.d. 7. Secondary hyperparathyroidism, she has prolonged admission. We will continue vitamin D supplementation. PLAN: 1. Please see orders. 2. Appreciate INR. 3. CMP, CBC, INR. TRANSINT:[id number] Voice Confirmation ID: [id number] DOCUMENT ID: [id number] ANGUS BEST MD at 0719 CC: [id number] DICTATION DATE: 08/31/16 1454 RECORD PRODUCER: 08/31/16 181 ADM IN [place] [address] [place] [address]
--- NOTE | 2016-09-01 07:51 | NUR ---
AM ROUNDING- PT SITTING UP IN BED WITH EYES OPEN RESTING. PT IS ALERT AND ORIENTED. ON ROOM AIR. NO MONITOR. RESERVE LEFT ARM FOR AVF. IV SEEN TO RIGHT HAND THAT IS CURRENTLY SALINE LOCKED. NO NEED AT CURRENT TIME. WILL CONTINUE TO MONITOR AND CONTINUE WITH PLAN OF CARE.
[2016-09-01 08:01] VITALS: BP 148/98
--- NOTE | 2016-09-01 10:41 | NUR ---
RATIONALE FOR SCD'S EXPLAINED. REFUSED SCD'S.
[2016-09-01 12:24] VITALS: BP 167/61
[2016-09-01 13:30] VITALS: Ht 167.6 cm; Wt 52.7 kg
--- NOTE | 2016-09-01 14:02 | NUR ---
0930- UPON DOING DAILY SHIFT ASSESSMENT WHILE FLUSHING PTS IV TO RIGHT HAND, NOTICED SWELLING AND RESISTANCE. WILL ATTEMPT TO RESITE PT AND CONTINUE TO MONITOR. 1404- REMOVED PTS IV TO RIGHT HAND WITH CATH TIP INTACT, COVERED SITE WITH 2X2 GUAZE AND SECURED SITE WITH TAPE. TOLERATED WELL. RESITED PT TO RIGHT FOREARM X1 STICK WITH 22G IV CATHETER. TOLERTED WELL. PLACED ORANGE SWAB CAP ON END TO BE SALINE LOCKED. WILL CONTINUE TO MONITOR.
[2016-09-01 16:00] VITALS: BP 163/61
--- NOTE | 2016-09-01 16:55 | NUR ---
CONSENTS FOR PROCEDURE SIGNED BY PT AND PLACED IN CHART. NPO AFTER MIDNIGHT SIGN PLACED ON PTS DOOR. INSTRUCTED PT TO NOT EAT OR DRINK ANYTHING AFTER MIDNIGHT TONIGHT, PT AGREED. WILL PASS THIS ALONG IN REPORT. WILL CONTINUE TO MONITOR.
--- NOTE | 2016-09-01 17:33 | NUR ---
PT SITTING UP IN BED WITH EYES OPEN RESTING CURRENTLY EATING HER DINNER TRAY. GUEST AT BEDSIDE. DENIES ANY NEED AT CURRENT TIME. WILL CONTINUE TO MONITOR AND CONTINUE WITH PLAN OF CARE.
[2016-09-01 20:00] VITALS: BP 185/64
[2016-09-02] VITALS: BP 140/61
[2016-09-02 04:00] VITALS: BP 153/59
[2016-09-02 05:01] LABS: BASOPHILS 1.3 % (0.0-2.0); EOSINOPHILS 3.5 % (0-7); HEMATOCRIT 32.8 % (36.0-48.0); HEMOGLOBIN 10.1 g/dL (12-16); IMMATURE GRANULOCYTES 0.3 % (0-5); LYMPHOCYTES 29.3 % (15-50); MCH 28.9 pg (26.0-34.0); MCHC 30.8 g/dL (31.0-37.0); MCV 93.7 fL (80.0-100.0); MEAN PLATELET VOLUME 9.5 fL (7.4-10.4); MONOCYTES 14.4 % (2-11); NEUTROPHILS 51.2 % (40-80); PLATELET COUNT 194 10x3/uL (130-400); RDW 15.9 % (11.5-14.5); WBC 3.8 10x3/uL (4.8-10.8)
[2016-09-02 05:10] LABS: PROTIME 13.1 SECONDS (11.6-15.0)
[2016-09-02 05:21] LABS: CALCIUM 9.5 mg/dL (8.5-10.1); CARBON DIOXIDE 31.6 mmol/L (21.0-32.0); PHOSPHOROUS 5.7 mg/dL (2.5-4.9); POTASSIUM - SERUM 4.6 mmol/L (3.5-5.1)
[2016-09-02 05:22] LABS: CREATININE - SERUM 8.2 mg/dL (0.6-1.3)
--- NOTE | 2016-09-02 07:15 | NUR ---
RESTING QUIETLY NAD NOTED
--- NOTE | 2016-09-02 07:52 | NUR ---
ASSESSMENT DONE. PT SITTING UP IN BED READING, A/O. PT NPO FOR IR PROCEDURE THIS AM. DENIES ABD PAIN. NO DISTRESS NOTED. DENIES NEEDS. CALL LIGHT WITH IN REACH. WILL CONT. TO MONITOR.
[2016-09-02 08:22] VITALS: BP 150/70
[2016-09-02 12:42] VITALS: BP 156/57
--- NOTE | 2016-09-02 13:17 | NUR ---
PT TO SPECIALS FOR PROCEDURE VIA BED. PT'S DAUGHTER IN ROOM.
--- NOTE | 2016-09-02 14:45 | NUR ---
PT BACK IN ROOM. SLEEPY, AWAKENS TO VOICE. DRESSING TO RIGHT GROIN CLEAN DRY. NO BLEEDING. NO S/S OF HEMATOMA. PT'S DAUGHTER IN ROOM. INSTRUCTED PT AND HER DAUGHTER THAT PT MUST REMAIN FLAT FOR 4 HOURS WITHOUT BENDING RIGHT LEG. INFORMED PT THAT SHE WILL NEED TO USE BEDPAN IF SHE NEEDS TO URINATE. UNDERSTANDING VERBALIZED. CALL LIGHT WITH IN REACH. WILL CONT. TO MONITOR
--- NOTE | 2016-09-02 15:06 | NUR ---
RIGHT PEDAL PULSE PALPABLE.
[2016-09-02 16:55] VITALS: BP 143/50
--- NOTE | 2016-09-02 17:03 | NUR ---
PT C/O BACK PAIN D/T LAYING FLAT. MEDS GIVEN. DRESSING TO RT GROIN REMAINS CLEAN,DRY, AND INTACT. NO BLEEDING OR S/S OF HEMATOMA. RT PEDAL PULSE PAPLABLE. DAUGHTER AT BEDSIDE. CALL LIGHT WITH IN REACH. WILL CONT. TO MONITOR.
--- NOTE | 2016-09-02 18:03 | NUR ---
PT A/O, REMAINS IN PRONE POSITION. DRESSING TO RIGHT GROIN INTACT, NO S/S OF HEMATOMA. RT PEDAL PULSE PALPABLE. STATES BACK PAIN HAS IMPROVED WITH MEDS. CALL LIGHT WITH IN REACH. WILL CONT. TO MONITOR.
--- NOTE | 2016-09-02 19:49 | NUR ---
RECEIVED REPORT, SITTING IN CHAIR, IV-RFA-SL, RESERVED L.ARM, DENIES ANY NEEDS, CALL LIGHT IN REACH, WILL CONTINUE TO MONITOR, DAUGHTER AT BEDSIDE
--- NOTE | 2016-09-02 19:53 | NUR ---
RECEIVED REPORT, SITTING IN CHAIR, CALL LIGHT IN REACH, DAUGHTER AT BEDSIDE, IV-RFA-SL, DENIES ANY NEEDS, CALL LIGHT IN REACH
[2016-09-02 21:31] VITALS: BP 122/50
[2016-09-03 05:31] LABS: BASOPHILS 0.8 % (0.0-2.0); EOSINOPHILS 3.8 % (0-7); HEMATOCRIT 33.5 % (36.0-48.0); HEMOGLOBIN 10.4 g/dL (12-16); IMMATURE GRANULOCYTES 0.3 % (0-5); LYMPHOCYTES 23.6 % (15-50); MCH 28.7 pg (26.0-34.0); MCV 92.5 fL (80.0-100.0); MEAN PLATELET VOLUME 8.7 fL (7.4-10.4); NEUTROPHILS 56.5 % (40-80); PLATELET COUNT 190 10x3/uL (130-400); RBC 3.62 10x6/uL (4.00-5.40); RDW 15.9 % (11.5-14.5); WBC 3.9 10x3/uL (4.8-10.8)
[2016-09-03 05:53] VITALS: BP 160/58
[2016-09-03 05:53] LABS: ANION GAP 13.6 mmol/L (8-16); CALCIUM 9.6 mg/dL (8.5-10.1); CARBON DIOXIDE 28.1 mmol/L (21.0-32.0); CREATININE - SERUM 9.8 mg/dL (0.6-1.3); PHOSPHOROUS 5.8 mg/dL (2.5-4.9); POTASSIUM - SERUM 4.7 mmol/L (3.5-5.1)
--- NOTE | 2016-09-03 07:25 | NUR ---
PT IS ALERT. NO SS OF DISTRESS AT THIS TIME. WILL CONTINUE TO MONTIOR.
--- NOTE | 2016-09-03 07:45 | NUR ---
PATIENT AWAKE, ALERT/ORIENT X4. TALKING ON CELL PHONE. LAV FISTULA. PATIENT TO HAVE DIALYSIS TX TODAY. CALL LIGHT WITHIN REACH. VOICES NO NEEDS
[2016-09-03 09:04] VITALS: BP 174/96
--- NOTE | 2016-09-03 10:00 | NUR ---
MD PHYSICIAN DERMATOLOGIST, DELLA DILLARD CALLED IN REGARDS TO DIALYSIS TX TODAY. DELLA DILLARD STATED THAT DIALYSIS WILL BE LATE AFTERNOON.
--- NOTE | 2016-09-03 11:30 | NUR ---
MARKUS HAMPTON APN INTO SEE PATIENT.
[2016-09-03 12:12] VITALS: BP 152/61
--- NOTE | 2016-09-03 13:30 | NUR ---
PATIENT HAS FAMILY IN ROOM VISITING. DENIES ANY NEEDS AT THIS TIME
--- NOTE | 2016-09-03 15:41 | NUR ---
PATIENT US AND OUT OF BED. WALKING IN HALLWAY WITH FAMILY
[2016-09-03 16:25] VITALS: BP 166/66
--- NOTE | 2016-09-03 17:41 | NUR ---
PATIENT TAKEN DOWN TO DIALYSIS BY STAFF.
[2016-09-04 00:37] VITALS: BP 155/59
[2016-09-04 04:23] VITALS: BP 143/64
--- NOTE | 2016-09-04 04:37 | NUR ---
PT RESTING, BED IS LOW, SRX2, CALL LIGHT IN REACH, RESERVED L.ARM, IV-RFA, WILL CONTINUE TO MONITOR
[2016-09-04 09:00] VITALS: BP 146/66
[2016-09-04 16:00] VITALS: BP 168/74
--- NOTE | 2016-09-04 17:28 | NUR ---
ALERT AND ORIENTED X4. RESTING IN BED. FAMILY AT BEDSIDE. DENIES PAIN OR SOB. NO CHANGE. CONTINUE PLAN OF CARE AND SAFETY PRECAUTIONS.
--- NOTE | 2016-09-04 19:50 | NUR ---
RECEIVED IN BEDROOM. LAYING IN BED SOCIALIZING WITH VISITORS. DENIES PAIN AT THIS TIME. ENCOURAGE TO EXPRESS NEEDS. CALL LIGHT IN REACH.
[2016-09-04 20:00] VITALS: BP 164/68
--- NOTE | 2016-09-05 01:40 | NUR ---
RESTING IN BED WITH EYES CLOSED. NO SIGNS OF DISTRESS. CALL LIGHT IN REACH
[2016-09-05 04:00] VITALS: BP 154/62
[2016-09-05 07:59] VITALS: BP 157/66
[2016-09-05 10:39] LABS: BASOPHILS 0.8 % (0.0-2.0); EOSINOPHILS 3.3 % (0-7); HEMATOCRIT 34.4 % (36.0-48.0); IMMATURE GRANULOCYTES 0.3 % (0-5); MCH 29.3 pg (26.0-34.0); MCV 91.5 fL (80.0-100.0); MEAN PLATELET VOLUME 9.3 fL (7.4-10.4); MONOCYTES 7.2 % (2-11); NEUTROPHILS 67.4 % (40-80); PLATELET COUNT 184 10x3/uL (130-400); RBC 3.76 10x6/uL (4.00-5.40); RDW 15.8 % (11.5-14.5); WBC 3.9 10x3/uL (4.8-10.8)
[2016-09-05 10:44] LABS: INR 1.02 (0.85-1.17); PROTIME 13.2 SECONDS (11.6-15.0)
[2016-09-05 10:45] LABS: APTT 41.1 SECONDS (22.8-39.4)
[2016-09-05 10:54] LABS: ALBUMIN 3.3 g/dL (3.4-5.0); ANION GAP 13.1 mmol/L (8-16); BILIRUBIN - TOTAL 0.36 mg/dL (0.2-1.3); CALCIUM 9.2 mg/dL (8.5-10.1); CARBON DIOXIDE 30.6 mmol/L (21.0-32.0); POTASSIUM - SERUM 4.7 mmol/L (3.5-5.1); PROTEIN - SERUM 6.9 g/dL (6.4-8.2)
[2016-09-05 11:56] VITALS: BP 172/70
[2016-09-05 16:27] VITALS: BP 169/64
--- NOTE | 2016-09-05 18:29 | NUR ---
ALERT AND ORIENTED X4. SITTING UP IN BED. FAMILY AT BEDSIDE. CONSENTS FOR PROCEDURE 09/06/16 SIGNED ON CHART. DENIES PAIN OR SOB. WAITING FOR DIALYSIS. CONTINUE PLAN OF CARE AND SAFETY PRECAUTIONS.
--- NOTE | 2016-09-05 21:00 | NUR ---
PT UNAVAILABLE FOR HIBICLENS AT THIS TIME. WILL GIVE BATH WHEN AVAILABLE.
[2016-09-05 21:36] LABS: APPEARANCE HAZY (CLEAR); BACTERIA MODERATE /hpf (NONE SEEN); BILIRUBIN NEGATIVE (NEGATIVE); COLOR YELLOW (YELLOW); EPITHELIAL CELLS 0-5 /hpf (0-5); GLUCOSE NEGATIVE (NEGATIVE); KETONE NEGATIVE (NEGATIVE); LEUKOCYTE ESTERASE 1+ (NEGATIVE); NITRITE NEGATIVE (NEGATIVE); PROTEIN 1+ mg/dL (NEGATIVE); UROBILINOGEN NORMAL (NORMAL); WHITE CELLS - URINE 0-5 /hpf (0-5)
[2016-09-05 21:37] LABS: MUCUS <1+ /lpf (NONE SEEN)
[2016-09-05 21:40] VITALS: BP 181/71
[2016-09-06] VITALS (49 sets, daily range): BP systolic 91–154; BP diastolic 32–64
--- NOTE | 2016-09-06 01:36 | NUR ---
pT WAS UNABLE TO COMPLETE HER TREATMENT DUE TO SEVERAL PROBLEMS. hER LINES CLOTTED AAAAND HAD AIR. hER VENOUS NEEDLE DID NOT PULL ADEQUATELY. aFTER A CHANGE OF LINES, DIALYZER AND NEEDLE, DR. ROCKWELL AGREED TO WAIT UNTIL MONDAY TO DIALYZE HER.
--- NOTE | 2016-09-06 04:13 | NUR ---
PT WENT TO DIALYSIS AT 2100 AND RETURNED AT 2330 WITH REPORT THAT SHE WAS UNABLE TO BE DIALIZED DUE TO LINES BEING CLOTTED AND HAVING AIR. THEY STATED THAT DR. Latisha ROCKWELL HAS BEEN NOTIFIED AND AGREES TO RETRY TODAY. CALL LIGHT IN REACH. IN BED WITH EYES CLOSED AND CHEST RISING AT THIS TIME. NO SIGN/SYMPTOMS OF DISTRESS NOTED.
--- NOTE | 2016-09-06 08:24 | NUR ---
AM ROUNDING- PT IS CURRENLTY OUT OF ROOM FOR PROCEDURE. WILL SET UP FREQUENT VITALS FOR WHEN PT GETS BACK AND AWAIT NEW ORDERS.
--- NOTE | 2016-09-06 10:18 | NUR ---
CONTRAST 100MG FLURO TIME 10:07
--- NOTE | 2016-09-06 12:25 | NUR ---
1115 PT RECIEVED FROM OR VIA BED SEE FLOW SHEET FOR ASSESMENT FINDINGS.. PT IS AWAKE BUT GROGGY.. ANSQWERS AAPPROPRIATLY.. THERE IS AN KEN RIGHT RADIAL FOR BP WITH CLEVAPREX INFUSING AT 31 CC TO BE TITRATED PEDAL PU;SES AR WITEH DOPPLER ONLY AND FAINT ON THE RIGHT.. BILATERAL GROINN DRESSINGS CDI.. CRITICORE FFOLEY PT TEMP IS LOW ... A BAHRE HUGGER IS ADDED TO THE BED... 1145 FAMILY IN TO DISPATCHER MAINTENANCE PT AND DR VELÁZQUEZ SPOKE WITH THEM ATT TTHE BEDDSIDE.. 1200 DR ROCKWELL IN TO SEE PT AND SPOKE WITH DR VELÁZQUEZ RE DIALYSIS [id number] ICE CHIPS GIVEN.. 1230 CXR DONE..
--- NOTE | 2016-09-06 14:08 | NUR ---
Nutrition follow-up: Pt is now in ICU s/p AAA stenting NPO at this time. PO intake of renal diet has been ~75% of meals Labs reviewed +BM Wt: 124# RDN following.
--- NOTE | 2016-09-06 15:08 | NUR ---
* Is the patient Alert and Oriented? Yes 0 * How many steps to enter\exit or inside your home? 1 0 * PCP DR. SIBLEY 0 * [facility] * Preadmission Environment Home with Family 0 * ADLs Independent 0 * Equipment Cane 0 * List name and contact numbers for known caregivers / representatives who currently or will assist patient after discharge: DAUGHTER: EMERALD [phone] DAUGHER: HAYDEE: [phone] 0 * Community resources currently utilized None 0 * Please name any agencies selected above. PATIENT IS CHRONIC DIALYSIS PATIENT AT [facility] ON [facility] 0 * Additional services required to return to the preadmission environment? No 0 * Can the patient safely return to the preadmission environment? Yes 0 * Has this patient been hospitalized within the prior 30 days at any hospital? No PATIENT IS AWAKE AND ALERT. SHE STATES THAT SHE LIVES AT HOME ALONE AND IS INDEPENDENT IN HER ADL'S. PATIENT STATES HER DAUGHTER, EMERALD, ASSISTS HER NEEDED. SHE STATES ONE OF HER DAUGHTERS WILL BE AVAILABLE TO DRIVE HER HOME AT DISCHARGE. PATIENT STATES HER PCP IS DR. SIBLEY. SHE GETS HER MEDS FROM THE [facility]. PATIENT STATES SHE HAS A CANE SHE USES FOR AMBULATION. PATIENT DENIES EVER HAVING HOME HEALTH. SHE STATES THERE IS ONE STEP TO ENTER HER HOME. PATIENT IS A CHRONIC DIALYSIS PATIENT AND SHE GETS HER DIALYSIS ON // AT THE [facility] ON [facility] IN [place]. SHE STATES SHE USUALLY DRIVES HERSELF TO AND FROM DIALYSIS OR HER DAUGHTER ASSIST HER IF NEEDED.
--- NOTE | 2016-09-06 16:21 | NUR ---
1330 DIALYSIS IN TO DIALYZE PT AT THE BEDSIDE.. 1400 DIALYSIS STARTED AND CLEVAPREX IS WEANED OFF QUICKLY TO RESERVE BP.. 1500 WITHOUT VISITORS.. REMAINS ON DIALYSIS 1600 NO CHANGES
--- NOTE | 2016-09-06 19:18 | NUR ---
1700 DILYSIS IS COMPLETE AND DIET SERVVED PT STATES SHE CAANNOT EAT UNTIL HER FAMILY BRINGS HER TEEETH IN .. BP HAS STARTED TO CLIMB SINCE COMPLETION OF DIALYSIS.. CLEVAPREX RESTARTED AND TITRATED TO KEEP BP <150 SYS PER NURSING MESSAGE.. BUPRENEX GIVEN FOR C/O PAIN 1800 FAMILY IN TO SEE PT.. UPDATE GIVEN..
--- NOTE | 2016-09-06 19:27 | NUR ---
REPORT RECIEVED. ASSESSMENT COMPELTE PER FLOW SHEET. PT AWAKE ALERT ORIENTED X3 O2 VIA NC 4L O2 SAT 98% RR 16 NON LABORED RUL RML JUDY CLEAR BILAT LOWER LOBES DEMINISHED. R JUGULAR CVL PATENT DRSG CDI. R RADIAL A LINE WITH GOOD WAVEFORM DRSG CDI EXTREMTY PINK WITH GOOD SENSATION WRIST PROTECTOR ON BP 123/48. HEART S1S2 HR 78 NSR. BILAT GROIN DRSG CDI NO HEMATOMA SWELLING OR PAIN AT SITE. QUINONEZ PATENT MINIMAL MAURY URINE NOTED. BILAT PEDAL PULSES WEAK AND ALSO FOUND VIA DOPPLER. NO EDEMA PRESENT X4 EXTREMETIES. VSS. DENIES PAIN OR NEEDS WILL CONTINUE TO MONITOR.
--- NOTE | 2016-09-06 22:17 | NUR ---
O2 DECREASED TO 5L O2 NC O2 SAT 99% RR 16 NON LABORED.
--- NOTE | 2016-09-06 23:08 | NUR ---
REASSESSMENT COMPLETE PER FLOW SHEET. VSS. NO NEW CHANGES. WILL CONTINUE TO MONITOR.
[2016-09-07] VITALS (40 sets, daily range): BP systolic 100–149; BP diastolic 29–62
--- NOTE | 2016-09-07 00:59 | NUR ---
CLEVIPREX OFF BP 131/59 VIA R RADIAL ART LINE NO FURTHER NEW ASSESSMENTS NOTED
--- NOTE | 2016-09-07 03:04 | NUR ---
REASSESSMENT COMPELT EPER FLOW SHEET. VSS. NO NEW CHANGES. WILL CONTINUE TO MONITOR.
--- NOTE | 2016-09-07 04:16 | NUR ---
BP 159/64 VIA R RADIAL ART LINE. LINE ZEROED WITH GOOD WAVEFORM. CLEVOPREX TURNED BACK ON AT 3MG/ML
[2016-09-07 05:59] LABS: MCH 28.5 pg (26.0-34.0); MCHC 30.8 g/dL (31.0-37.0); MCV 92.5 fL (80.0-100.0); MEAN PLATELET VOLUME 9.2 fL (7.4-10.4); RDW 15.8 % (11.5-14.5)
[2016-09-07 06:00] LABS: HEMATOCRIT 27.3 % (36.0-48.0); HEMOGLOBIN 8.4 g/dL (12-16); RBC 2.95 10x6/uL (4.00-5.40); WBC 6.6 10x3/uL (4.8-10.8)
[2016-09-07 06:28] LABS: ANION GAP 13.7 mmol/L (8-16); CALCIUM 8.7 mg/dL (8.5-10.1); CARBON DIOXIDE 29.4 mmol/L (21.0-32.0); CREATININE - SERUM 7.2 mg/dL (0.6-1.3); POTASSIUM - SERUM 5.1 mmol/L (3.5-5.1)
--- NOTE | 2016-09-07 07:00 | NUR ---
PT REPORT REC'D, PT CARE ASSUMED. PT AAOX4. NO C/O PAIN. VSS. ROOM AIR. RIGHT JUGULAR CVL WITH FLUIDS INFUSING, SEE FLOW SHEET, DRESSING CDI. RIGHT RADIAL A-LINE, GOOD WAVE FORM, EXTREMITY PINK SENSATION PRESENT. QUINONEZ CATHETER FREE OF KINKS TO GRAVITY. BILAT GROIN DRESSINGS CDI. SCD'S. SHIFT ASSESSMENT COMPLETED, SEE FLOW SHEET. ROOM FREE OF CLUTTER, CALL LIGHT IN REACH, WILL CONTINUE TO MONITOR PT.
--- NOTE | 2016-09-07 07:59 | NUR ---
ROXANNE WITH DIALYSIS AT THE BEDSIDE. VSS, WILL CONTINUE TO MONITOR PT.
--- NOTE | 2016-09-07 09:00 | NUR ---
PT FAMILY AT THE BEDSIDE, ALL QUESTIONS ANSWERED, VSS, WILL CONTINUE TO MONITOR PT.
--- NOTE | 2016-09-07 10:03 | NUR ---
DR. VELÁZQUEZ AT THE BEDSIDE, VSS, ANSWERED PT AND PT FAMILY'S QUESTIONS. DIALYSIS AT THE BEDSIDE, WILL CONTINUE TO MONITOR PT.
--- NOTE | 2016-09-07 11:00 | NUR ---
DIALYSIS AT THE BEDSIDE, PT TOLERATING WELL. REASSESSMENT COMPLETED, SEE FLOW SHEET. ROOM FREE OF CLUTTER, CALL LIGHT IN REACH, BED LOCKED IN LOWEST POSITION, WILL CONINTUE TO MONITOR PT.
--- NOTE | 2016-09-07 12:06 | NUR ---
PT FAMILY AT THE BEDSIDE, ALL QUESTIONS ANSWERED, VSS, WILL CONTINUE TO MONITOR PT.
--- NOTE | 2016-09-07 12:14 | NUR ---
Mrs. Vásquez had bedside hemodialysis today via her left upper arm av fistula. Average blood flow was 350 mls/minute. Net fluid removed was 1000mls. Post vital signs were: B/p:149/34, Hr: 62, resps: 20. No problems.
--- NOTE | 2016-09-07 13:35 | NUR ---
SALINE LOCKED RIGHT JUGULAR CVL, DRESSING CHANGED. DC'ED RIGHT ARTERIAL LINE, TIP INTACT, 4X4 APPLIED, PRESSURE APPLIED FOR 5 MINUTES, DRESSING APPLIED, WILL CONTINUE TO MONITOR FOR BLEEDING. 10CC DEFLATED FROM QUINONEZ BALLOON, QUINONEZ CATHETER DC'ED, BEDSIDE COMMODE NEEDED. PT TOLERATED WELL, VSS, WILL CONTINUE TO MONITOR PT.
--- NOTE | 2016-09-07 14:41 | NUR ---
PHYSICAL THERAPY IN WITH PT, TRANSFERRED PT TO CHAIR, PT TOLERATED WELL, WILL CONTINUE TO MONITOR PT.
--- NOTE | 2016-09-07 15:07 | NUR ---
PT FAMILY AT THE BEDSIDE, ALL QUESTIONS ANSWERED, VSS, WILL CONTINUE TO MONITOR PT.
--- NOTE | 2016-09-07 15:15 | NUR ---
PT SITTING UP IN CHAIR, C/O PAIN RATED 10/10 TO INCISIONAL SITES, PAIN MEDS GIVEN, WILL REASSESS PAIN LEVEL. REASSESSMENT COMPLETED, SEE FLOW SHEET. ROOM FREE OF CLUTTER, CALL LIGHT IN REACH, WILL CONTINUE TO MONITOR PT.
--- NOTE | 2016-09-07 17:21 | NUR ---
COMPLETE LINEN CHANGE
--- NOTE | 2016-09-07 18:04 | NUR ---
TRANSFERED PT FROM CHAIR TO BED, PT TOLERATED WELL. PT FAMILY AT THE BEDSIDE, ALL QUESTIONS ANSWERED, VSS, WILL CONTINUE TO MONITOR PT.
--- NOTE | 2016-09-07 19:16 | NUR ---
REPORT RECIEVED. ASSESSMETN COMELPTE PER FLOW SHEET. VSS. PT AWAKE ALERT ORIENTED X3. DENIES PAIN OR NEEDS. HEART S1S2 HR 64 NSR. BP 124/57 VIA R BP CUFF. R RADIAL INCISION PREVIOUS A LINE SITE DRSG CDI NO HEMATOMA REDNESS SWELLING NTOED AT SITE. O2 VIA NC 2L O2 SAT 98% RR 16 NON LABORED BILAT ALL LOBES CLEAR. ABD SOFT NON TENDER BS ACTIVE X4. BLADDER NON PALP. BILAT GROIN INCISION DRSG CDI NO HEMATOMA BRUISING SWELLING NOTED AT SITE. BILAT PEDAL PULSES PALP WEAK. DENIES NEEDS. VSS. WILL CONTINUE TO MONITOR.
--- NOTE | 2016-09-07 21:14 | NUR ---
FAMILY AT BEDSIDE. DENIES PAIN OR NEEDS.
--- NOTE | 2016-09-07 22:27 | NUR ---
PT C/O OF R OUTER THIGH BURNING, NO REDNESS SWELLING OR PAIN AT SITE. RIGHT GROIN NO SWELLING BRUISING REDNESS NOTED AT SITE. R PEDAL PULSE WEAK AND FOUND VIA DOPPLER. WILL CONTINUE TO MONTIOR.
--- NOTE | 2016-09-07 23:28 | NUR ---
REASSESSMENT COMPELTE PER FLOW SHEET. NO NEW CHANGES. VSS. WILL CNTINUE TO MONITOR.
[2016-09-08] VITALS (9 sets, daily range): BP systolic 142–164; BP diastolic 62–79
--- NOTE | 2016-09-08 00:16 | NUR ---
PT STATES R THIGH BURNING SUBSIDED.
--- NOTE | 2016-09-08 01:16 | NUR ---
RESTING COMFORTABLY. DENIES NEEDS OR PAIN.
--- NOTE | 2016-09-08 03:28 | NUR ---
REASSESSMENT COMPELTE PER FLOW SHEET. VSS. NO NEW CHANGES AT THIS TIME.
--- NOTE | 2016-09-08 05:01 | NUR ---
NO NEW CHANGES. VSS. DENIES PAIN OR NEEDS.
[2016-09-08 06:14] LABS: HEMATOCRIT 24.9 % (36.0-48.0); HEMOGLOBIN 7.7 g/dL (12-16); MCH 28.8 pg (26.0-34.0); MCHC 30.9 g/dL (31.0-37.0); MCV 93.3 fL (80.0-100.0); MEAN PLATELET VOLUME 9.3 fL (7.4-10.4); RBC 2.67 10x6/uL (4.00-5.40); RDW 15.8 % (11.5-14.5); WBC 5.9 10x3/uL (4.8-10.8)
--- NOTE | 2016-09-08 06:21 | NUR ---
FAMILY AT BEDSIDE.
[2016-09-08 06:25] LABS: ANION GAP 12.4 mmol/L (8-16); CALCIUM 8.7 mg/dL (8.5-10.1); CARBON DIOXIDE 31.8 mmol/L (21.0-32.0)
[2016-09-08 06:26] LABS: CREATININE - SERUM 5.3 mg/dL (0.6-1.3); POTASSIUM - SERUM 4.2 mmol/L (3.5-5.1)
--- NOTE | 2016-09-08 07:00 | NUR ---
PT REPORT REC'D, PT CARE ASSUMED. PT AAOX4 SITTING UP IN BED. VSS, ROOM AIR. PT C/O INCISIONAL PAIN RATED 10/10, PAIN MEDS TO BE GIVEN. RIGHT JUGULAR CVL S/L, DRESSING CDI. BILAT GROIN INCISIONAL SITES, DRESSINGS CDI. SCD'S, BILAT PEDAL PULSES PALPABLE. SHIFT ASSESSMENT COMPLETED, SEE FLOW SHEET. ROOM FREE OF CLUTTER, CALL LIGHT IN REACH, BED LOCKED IN LOWEST POSITION, WILL CONTINUE TO MONITOR PT.
--- NOTE | 2016-09-08 07:30 | NUR ---
MARKUS KONG APN AT THE BEDSIDE, ALL QUESTIONS ANSWERED. VSS, WILL CONTINUE TO MONITOR PT.
--- NOTE | 2016-09-08 07:45 | NUR ---
COMPLETE BATH GIVEN, TRANSFERRED PT FROM BED TO CHAIR, PT TOLERATED WELL. WILL CONTINUE TO MONITOR PT.
--- NOTE | 2016-09-08 08:00 | NUR ---
BEGAN INFUSING PRBC'S, SEE FLOW SHEET. VSS, WILL CONTINUE TO MONITOR PT.
--- NOTE | 2016-09-08 09:00 | NUR ---
PT FAMILY AT THE BEDSIDE, ALL QUESTIONS ANSWERED, VSS, WILL CONTINUE TO MONITOR PT.
--- NOTE | 2016-09-08 09:35 | NUR ---
Nutrition follow-up: Diet: Renal PO intake ~75% of meals Pt s/p AAA stenting Wt: 116# No BM since surgery RDN following.
--- NOTE | 2016-09-08 10:57 | NUR ---
PT SITTING UP IN CHAIR, NO C/O PAIN. VSS, PRBC'S INFUSING, SEE FLOW SHEET. CALL LIGHT IN REACH, ROOM FREE OF CLUTTER, WILL CONTINUE TO MONITOR PT.
--- NOTE | 2016-09-08 12:00 | NUR ---
PRBC'S FINISHED, PT TOLERATED WELL. PT FAMILY AT THE BEDSIDE, ALL QUESTIONS ANSWERED, VSS. WILL CONTINUE TO MONITOR PT.
--- NOTE | 2016-09-08 12:50 | NUR ---
DR. ROCKWELL AT THE BEDSIDE, ALL QUESTIONS ANSWERED, VSS. WILL CONTINUE TO MONITOR PT.
--- NOTE | 2016-09-08 13:14 | NUR ---
DC'ED RIGHT JUGULAR CVL, TIP INTACT, PRESSURE APPLIED, TEGADERM APPLIED.WILL CONTINUE TO MONITOR FOR BLEEDING.
--- NOTE | 2016-09-08 13:40 | NUR ---
DISCHARGE INSTRUCTIONS GIVEN, PT VERBALIZED UNDERSTANDING OF CONTINUING HOME MEDS, NORCO RX GIVEN, INSTRUCTED PT TID PRN PAIN. PT VERBALIZED UNDERSTANDING. PT VERBALIZED UNDERSTANDING OF F/U APPT WITH DR. VELÁZQUEZ 09/22/16 AT 0930. PTS DAUGHTER AT THE BEDSIDE, VERBALIZED UNDERSTANDINGS.
--- NOTE | 2016-09-11 12:51 | OP ---
PATIENT NAME: MILAGRO WALKER MEDICAL RECORD: [id number] :[birth year] LOCATION:[facility] D.2304 ADMISSION DATE:08/31/16 SURGEON: LEIF AGUILAR MD DATE OF OPERATION: 09/06/2016 SURGEON: Leif Aguilar MD. ANESTHESIA: General endotracheal, Dr. Montes. OPERATIONS PERFORMED: 1. Endovascular stent repair of abdominal aortic aneurysm. 2. Open exposure of the distal iliac and femoral arteries bilaterally, 3412-50; catheter sheath placement into the aorta bilaterally, 81253-20. 3. Endo AAA repair with modular bifurcated device, 2 locking limbs, 20820. A. Rad S&I Endo AAA repair, 38773-23. PREOPERATIVE DIAGNOSIS: Large saccular abdominal aortic aneurysm. POSTOPERATIVE DIAGNOSIS: Large saccular abdominal aortic aneurysm. INDICATION FOR OPERATION: Large saccular abdominal aortic aneurysm. FINDINGS OF THE OPERATION: 1. Retrograde left iliac arteriogram demonstrates diffuse disease and dissection of the vessel. 2. Aortogram post-endovascular stent demonstrates no endoleak and good position. FLUOROSCOPY TIME: 10 minutes. CONTRAST: 100 mL. The main body 25 x 14 x 103, contralateral left limb 16 x 20 x 124, ipsilateral extension 16 x 20 x 93. DESCRIPTION OF PROCEDURE: After informed consent, adequate preoperative medication evaluation, the patient was brought to the operating room, placed on the table in the supine position. After induction of general endotracheal anesthesia and application of appropriate monitoring devices, the chest, abdomen, groin, both extremities were prepped and draped in a sterile field, utilizing Betadine scrub, alcohol, and Betadine solution. A Betadine-impregnated drape was also used. Oblique incisions were made above the inguinal ligaments bilaterally and dissection carried down to the fascia. Hemostasis maintained with electrocautery. The inguinal ligaments were elevated bilaterally and the external iliac and common femoral dissected free of surrounding structures with vessel loops placed around the branches. The patient was given a calculated dose of heparin. Bilateral 6-sheaths were placed after micropuncture technique. Fluoro was used to direct the wires into the aorta. An aortogram demonstrated the anatomy and the main body was advanced from the right groin and deployed just below the renal arteries. The top mechanism suprarenal device was deployed. The contralateral gate was then cannulated and the extension placed. The main body was deployed and the right extension was placed, both were just proximal to the hypogastric arteries. Utilizing Reliant balloons bilaterally, the grafts were dilated. An aortogram demonstrated good flow through the endovascular stent with no endoleaks. The OPERATIVE REPORT [id number] MILAGRO WALKER catheters, wires and sheaths were removed and the artery was repaired in 2 layers utilizing running 6-0 Prolene suture. All maneuvers to remove trapped air were performed. The clamps were removed sequentially. The patient was given a calculated dose of protamine to reverse the heparin. Hemostasis was assured. The wounds were irrigated with copious amounts of antibiotic solution and normal saline. Instrument count and sponge counts were correct times 2. The wound was closed in layers utilizing 2-0 Vicryl on deep subcutaneous tissue, 3-0 Vicryl on superficial subcutaneous tissues. Skin was approximated with 5-0 subcuticular Monocryl. Sterile dressings were applied. The patient tolerated the procedure well and was transferred to the ICU in stable condition. TRANSINT:[id number] Voice Confirmation ID: [id number] DOCUMENT ID: [id number] LEIF AGUILAR MD at 1251 CC: [id number] DICTATION DATE: 09/06/16 1108 FIRE APPARATUS ENGINEER: 09/06/16 1153 DIS IN 09/08/16 [id number] [place] [address]
== END 2016-09-08 13:40 | disposition home or self-care (01) | DRG 268 ==
LOC: D.M2 14:03 → D.ICU 14:03
PROVIDERS: Internal Medicine Cardiovascular Disease; Radiology Diagnostic Radiology; ADMIT Internal Medicine Nephrology
PROC: B4141ZZ Fluoroscopy of Superior Mesenteric Artery using Low Osmolar Contrast (ICD-10-PCS; principal; 2016-09-02 13:00)
PROC: 5A1D60Z (ICD-10-PCS; 2016-09-03)
PROC: 04V03D6 (ICD-10-PCS; 2016-09-06)
PROC: B41G1ZZ Fluoroscopy of Left Lower Extremity Arteries using Low Osmolar Contrast (ICD-10-PCS; 2016-09-06)
PROC: B4101ZZ Fluoroscopy of Abdominal Aorta using Low Osmolar Contrast (ICD-10-PCS; 2016-09-06)
DX: I71.4 Abdominal aortic aneurysm, without rupture (principal); N18.6 End stage renal disease; I74.8 Embolism and thrombosis of other arteries; I12.0 Hypertensive chronic kidney disease with stage 5 chronic kidney disease or end stage renal disease; N25.81 Secondary hyperparathyroidism of renal origin; I70.209 Unspecified atherosclerosis of native arteries of extremities, unspecified extremity; Z99.2 Dependence on renal dialysis; K59.09 Other constipation; D63.1 Anemia in chronic kidney disease

== ENCOUNTER 2016-11-01 07:42 | Outpatient (CLI) | payer MEDICARE, OTHER ==
[~2016-11-01] VITALS: Ht 165.1 cm; Wt 49.7 kg
--- NOTE | ~2016-11-01 | OP ---
PATIENT NAME: MILAGRO WALKER MEDICAL RECORD: [id number] :35 LOCATION:D.M2 D.2117 ADMISSION DATE: SURGEON: KARLEY LONDONO MD DATE OF OPERATION: 11/02/2016 PROCEDURES: 1. PTCA stent RCA. 2. Selective coronary angiography. PROCEDURE PERFORMED: After informed consent was obtained and after detailed explanation of risks, benefits as well as alternative therapies, the patient elected to proceed with angiogram and angioplasty. The left femoral area was prepped and draped in normal sterile fashion. Left femoral artery was cannulated via modified Seldinger technique with placement of 6-Monegasque sheath. All catheters exchanged through this sheath. FINDINGS: The right coronary has a 90% stenosis in the mid vessel. It is a very tortuous vessel, type C lesion, it is proxy 8 mm in length in a 3.0 vessel, addressed with a 3.0 x 8 mm BioFreedom stent. Result was 0% residual stenosis, NATALIA 3 flow before and after the intervention. OVERALL IMPRESSION: Successful percutaneous transluminal coronary angioplasty stent of the right coronary artery going from 90% initial stenosis to 0% residual. TRANSINT:[id number] Voice Confirmation ID: [id number] DOCUMENT ID: [id number] KARLEY LONDONO MD CC: [id number] DICTATION DATE: 11/02/16 1107 BEEHIVE KILN SUPERVISOR: 11/02/16 1258 [facility] [address] [place] [address]
--- NOTE | ~2016-11-01 | HEMODYNAMI ---
PATIENT:MILAGRO WALKER MEDICAL RECORD: [id number] : 35 LOCATION:[facility] [address] [facility]# [id number] ADMISSION DATE: 11/01/16 Generatedon:11/02/201611:24 Patient name: MILAGRO WALKER Patient #: [id number] SSN: [id number] : 1935 Date of study: 11/02/2016 Page: Of Hemodynamic Procedure Report Patient Data Patient Demographics Procedure consent was obtained First Name: MILAGRO Gender: Female Last Name: AARON : 1935 Middle Initial: S Age: 81 year(s) Patient #: [id number] Race: Black SSN: [id number] Additional ID: [id number] Contact details Address: [address] [place] [address] State: [place] City: [facility] Zip code: [address] Past Medical History Allergies: No known allergies Admission Admission Data Admission Date: 11/01/2016 Admission Time: 7:42 Arrival Date: 11/01/2016 Arrival Time: 10:00 Admit Source: Other Insurance Payor: Medicare Room #: D.2117 Height (in.): 65 BSA: 1.57 (m2) Height (cm.): 165.1 BMI: 19.3 (kg/m2) Weight (lbs.): 116 Weight (kg.): 52.62 Lab Results Lab Result Date: 11/02/2016 Lab Result Time: 0:00 Biochemistry Name Units Result Min Max CK-MB ng/ml 0.7 --(*---)-- 0 3.6 Creatinine l 49 --(*---)-- 21 215 Kinase Troponin l ng/ml 0.06 --(---*)-- 0 0.06 Procedure Procedure Types Cath Procedure Diagnostic Procedure [facility] PCI Procedure Coronary Stent Initial Miscellaneous Procedures Moderate Sedation up to 30 minutes Procedure Description Procedure Date Procedure Date: 11/02/2016 Procedure Start Time: 10:43 Procedure End Time: 11:02 Procedure Staff Name Function Josafat Chisholm MD Performing Physician Diann Holliday RT Scrub Arleth Benedict RN Nurse Laura Phelan RT Monitor Procedure Data Cath Procedure Fluoroscopy Diagnostic fluoroscopy Total fluoroscopy Time: 8.5 time: 8.5 min min Diagnostic fluoroscopy Total fluoroscopy dose: 350 dose: 350 mGy mGy Contrast Material Contrast Material Type Amount (ml) Isovue 370 82 Entry Location Entry Primary Successful Side Size Upsize Upsize Entry Closure Succes sful Closure Location (Fr) 1 (Fr) 2 (Fr) Remarks Device Remarks Femoral Right 7 Fr 7 Fr Exoseal artery Short Long Estimated blood loss: 5 ml Procedure Complications No complications Procedure Medications Medication Administration Route Dosage Oxygen NC 2 l/min Benadryl I.V. 50 mg Lidocaine 2% added to field 20 Heparin Flush Bag added to field 2 bags (1000units/500ml NS) 0.9% NaCl I.V. 50 ml/hr Versed I.V. 1 mg Fentanyl I.V. 50 mcg Versed I.V. 1 mg Fentanyl I.V. 50 mcg Heparin Bolus I.V. 4000 units Hemodynamics Rest BSA: 1.57 (m2) HGB: 10.7 (g/dl) O2 Consumption: Estimated: 137.49 (ml/min) O2 Co nsumption indexed: Estimated:87.57 (ml/min/m) Heart Rate: 64 (bpm) Snapshots Pre Cath Intra NCS Post Cath Vital Signs Time Heart Resp SPO2 etCO2 [id number] NIBP (mmHg) Rhythm Pain Sedation Rate (ipm) (%) (mmHg) (mmHg) Status Level (bpm) 10:25:08 63 17 96 0 0 190/88(148) NSR 0 (11) 10(A) , No pain 10:29:38 64 20 96 0 0 187/85(146) NSR 0 (11) 10(A) , No pain 10:34:07 67 16 99 0 0 183/91(147) NSR 0 (11) 10(A) , No pain 10:38:31 73 19 98 0 0 185/93(143) NSR 0 (11) 10(A) , No pain 10:42:57 75 17 96 0 0 186/94(150) NSR 0 (11) 9(A) , No pain 10:47:29 74 18 97 0 0 171/74(144) NSR 0 (11) 9(A) , No pain 10:51:52 86 27 96 0 0 171/85(127) NSR 0 (11) 9(A) , No pain 10:56:18 70 22 96 0 0 151/72(118) NSR 0 (11) 9(A) , No pain 11:00:40 68 16 96 0 0 167/68(131) NSR 0 (11) 9(A) , No pain 11:05:06 75 18 98 0 0 157/89(133) NSR 0 (11) 10(A) , No pain Medications Time Medication Route Dose Verified Delivered Reason Notes Effectiveness by by 10:34:32 Oxygen NC 2 Josafat Buffie used for l/min Phan Benedict RN procedure 10:34:40 Benadryl I.V. 50 mg Josafat Buffie used for Phan Benedict RN procedure 10:34:50 Lidocaine 2% added 20ml Josafat Josafat for local to vial Phan Chisholm MD anesthetic field 10:34:58 Heparin Flush added 2 Josafat Josafat used for Bag to bags Phan Chisholm MD procedure (1000units/500ml field NS) 10:35:07 0.9% NaCl I.V. 50 Josafat Buffie Per physician ml/hr Phan Benedict RN 10:38:45 Versed I.V. 1 mg Josafat Buffie for sedation Phan Benedict RN 10:38:50 Fentanyl I.V. 50 Josafat Buffie for sedation mcg Phan Benedict RN 10:47:20 Versed I.V. 1 mg Josafat Buffie for sedation Phan Benedict RN 10:47:23 Fentanyl I.V. 50 Josafat Buffie for sedation mcg Phan Benedict RN 10:50:09 Heparin Bolus I.V. 4000 Josafat Buffie for verifi ed units Phan Benedict RN anticoagulation with dr chisholm Procedure Log Time Note 9:53:12 Patient Height : 65 cm 9:53:12 Patient Weight : 116 kg 9:53:36 Informed consent obtained and on chart 9:54:15 Diann VELEZ(R) sent for patient. Start room use. 9:54:16 Time tracking: Regular hours 9:54:21 Plan of Care:Hemodynamics will remain stable., Cardiac rhythm will remain stable., Comfort level will be maintained., Respiratory function will remain adequate., Patient/ family verbilizes understanding of procedure., Procedure tolerated without complication., Recovers from procedure without complications.. 10:03:57 Patient received from Med II to CCL 2 Alert and oriented. Tansferred to table in Supine position. 10:05:11 Use device set Femoral PCI 10:05:12 Acist Syringe opened to sterile field. 10:05:13 Acist Hand Control opened to sterile field. 10:05:13 Bag Decanter opened to sterile field. 10:05:14 Medline Cath Pack opened to sterile field. 10:05:14 Terumo 6Fr Thayer Sheath opened to sterile field. 10:05:15 St Farhad 260cm J .035 wire opened to sterile field. 10:05:15 Merit BasixCompak Inflation Kit opened to sterile field. 10:05:16 Acist Manifold opened to sterile field. 10:05:17 Tegaderm 4 x 4 opened to sterile field. 10:06:02 H&P Date Dictated: 11/01/2016 Within 30 days and on chart., H&P Addendum completed by physician on day of procedure. (MUST COMPLETE FOR ALL OUTPATIENTS). 10:06:04 Pre-procedure instructions explained to patient. 10:12:42 Lab Result : CK-MB 0.7 ng/ml 10:12:42 Lab Result : Troponin l 0.06 ng/ml 10:12:42 Lab Result : Creatinine Kinase 49 l 10:13:42 Diagnostic Cath Status : Elective 10:23:50 Warm blankets applied, and terra hugger turned on for patient comfort. 10:23:51 Correct patient and procedure confirmed by team. 10:23:52 ECG and BP/O2 sat monitors applied to patient. 10:23:54 Vital chart was started 10:23:55 Baseline sample Acquired. 10:24:09 Rhythm: sinus rhythm 10:24:11 Full Disclosure recording started 10:24:15 Family in waiting room. 10:24:18 Patient NPO since Midnight. 10:25:11 Is the patient allergic to Iodine/contrast media? No. 10:25:13 Was the patient premedicated? No 10:25:17 Is patient on blood thinner?Yes 10:28:37 Patient diabetic? No. 10:28:40 Previous problem with sedation/anesthesia? No ? 10:28:42 Snore? Yes 10:28:43 Sleep apnea? No 10:28:44 Deviated septum? No 10:28:46 Opens mouth fully? Yes 10:28:48 Sticks out tongue? Yes 10:28:50 Airway obstruction? No ? 10:28:56 Dentures? Yes in tight 10:29:01 Pre procedure: right dorsailis pedis pulse 1+ Palpable, but thready & weak; easily obliterated 10:29:14 Patient pain scale 0/10 ?. 10:29:28 IV patent on arrival in right hand with 0.9% NaCl at [facility]. 10:29:32 Lab results completed and on chart. 10:29:37 Left groin area was prepped with chlora-prep and draped in sterile fashion 10:29:38 Alarms reviewed by R. N. 10:29:38 Sharps counted by scrub and verified by R.N. 10:32:37 Use device set Femoral PCI 10:32:39 Acist Syringe opened to sterile field. 10:32:39 Acist Hand Control opened to sterile field. 10:32:40 Bag Decanter opened to sterile field. 10:32:40 Medline Cath Pack opened to sterile field. 10:32:41 St Farhad 260cm J .035 wire opened to sterile field. 10:32:42 Merit BasixCompak Inflation Kit opened to sterile field. 10:32:43 Acist Manifold opened to sterile field. 10:32:43 Tegaderm 4 x 4 opened to sterile field. 10:34:32 Oxygen 2 l/min NC was administered by Arleth Benedict RN; used for procedure; 10:34:40 Benadryl 50 mg I.V. was administered by Arleth Benedict RN; used for procedure; 10:34:50 Lidocaine 2% 20ml vial added to field was administered by Josafat Chisholm MD; for local anesthetic; 10:34:58 Heparin Flush Bag (1000units/500ml NS) 2 bags added to field was administered by Josafat Chisholm MD; used for procedure; 10:35:07 0.9% NaCl 50 ml/hr I.V. was administered by Arleth Benedict RN; Per physician; 10:36:03 Physician arrived 10:36:04 --------ALL STOP TIME OUT------ 10:36:04 Final Timeout: patient, procedure, and site verified with staff and physician. All members of the team are in agreement. 10:36:07 Left groin site verified by team. 10:36:10 Physical assessment completed. ASA score P 2 - A patient with mild systemic disease as per Josafat Chisholm MD. 10:36:14 Sedation plan: IV Moderate Sedation Versed, Fentanyl 10:38:45 Versed 1 mg I.V. was administered by Arleth Benedict RN; for sedation; 10:38:50 Fentanyl 50 mcg I.V. was administered by Arleth Benedict RN; for sedation; 10:40:24 Cruz Whisper J 300cm 0.014 guide wire opened to sterile field. 10:43:44 Procedure started. 10:43:52 Local anesthetic to left femerol artery with Lidocaine 2% by Josafat Chisholm MD.INITIAL ACCESS ONLY 10:44:25 Terumo 7Fr Thayer Sheath opened to sterile field. 10:44:38 A 7 Fr Short sheath was inserted into the Right Femoral artery 10:45:17 Medtronic Launcher 7Fr AR 2.0 SH guide catheter opened to sterile field. 10:45:25 7 Fr ar 2 sh guide catheter was inserted over the wire 10:46:06 Guide Catheter removed. unable to cannulate vessel. 10:46:17 Terumo 7Fr Thayer Destination Sheath opened to sterile field. 10:46:58 Sheath upsized to a 7 Fr Long. 10:47:06 7 Fr ar 2 guide catheter was inserted over the wire 10:47:20 Versed 1 mg I.V. was administered by Arleth Benedict RN; for sedation; 10:47:23 Fentanyl 50 mcg I.V. was administered by Arleth Benedict RN; for sedation; 10:49:02 Guide Catheter removed. unable to cannulate vessel. 10:49:37 Medtronic Launcher 7Fr HS I guide catheter opened to sterile field. 10:49:48 7 Fr hs 1 guide catheter was inserted over the wire 10:50:09 Heparin Bolus 4000 units I.V. was administered by Arleth Benedict RN; for anticoagulation; verified with dr chisholm 10:50:27 RCA angiography performed. 10:50:38 Newport Edictive Choice PT Extra Support J 300cm .014 gu opened to sterile field. 10:51:08 choice pt wire advanced. 10:56:48 Inflation number: 1 A Newport Edictive [place] 3.0 X 12 balloon was prepped and advanced across the Mid RCA, then inflated to 10 BRIELLE for 0:10 (min:sec). 10:57:57 Balloon removed over the wire. 10:58:55 Inflation Number: 2 A Biofreedom 3.0 x 8 stent (No Cost Implant) was prepped and advanced across the Mid RCA. The stent was deployed at 13 BRIELLE for 0:10 (min:sec). 10:59:21 Stent catheter was removed intact over wire. 10:59:22 Wire removed. 10:59:22 Guide catheter removed. 10:59:30 Cordis 7Fr Exoseal opened to sterile field. 11:00:20 Sheath removed intact; hemostasis achieved with Exoseal to the Right Femoral artery. 11:00:22 Procedure ended.(Physican Out) 11:01:08 Fluoroscopy time 08.50 minutes. 11:01:17 Fluoroscopy dose: 350 mGy 11:01:17 Flurop Dose total: 350 11:01:21 Contrast amount:Isovue 370 82ml. 11:01:23 Sharps counted by scrub and verified by R.N. 11:01:27 Insertion/operative site no bleeding no hematoma. 11:01:31 Post-op/insertion site Left Femoral artery dressed using a 4 x 4 and Tegaderm. 11:01:35 Post left femerol artery:stable 11:01:37 Post Procedure Pulses reassessed and unchanged 11:01:39 Post procedure rhythm: unchanged. 11:01:43 Estimated blood loss: 5 ml 11:01:45 Post procedure instruction explained to patient.Patient verbalizes understanding. 11:01:45 Patient needs reinforcement of post procedure teaching. 11:02:18 Procedure type changed to Cath procedure, Diagnostic procedure, LHC, PCI procedure, Coronary Stent Initial, Miscellaneous Procedures, Moderate Sedation up to 30 minutes 11:02:20 Procedure and supply charges have been captured, reviewed, submitted and are correct. 11:02:24 Procedure Complication : No complications 11:02:26 Vital chart was stopped 11:02:27 See physician's report for complete and final results. 11:02:32 Report given to [facility]. 11:02:35 Patient transfered to [facility] with Stretcher. 11:02:42 Procedure ended. 11:02:42 Full Disclosure recording stopped 11:02:48 ACC-PCI Only Patient was given prescriptions, or instructed by Josafat Chisholm MD to start/continue the following medications upon discharge: Plavix 11:02:50 End room use (Document Last) 11:05:55 St Farhad Femstop Arch Gold opened to sterile field. Intervention Summary Intervention Notes Time ActionType Lesion and Equipment Action# Pressure Duration Attributes Used 10:56:48 Inflate Mid RCA Newport Sci 1 10 00:10 balloon [place] 3.0 X 12 balloon 10:58:55 Place stent Mid RCA Biofreedom 2 13 00:10 3.0 x 8 stent (No Cost Implant) Device Usage Item Name Manufacture Quantity Catalog Number Hospital Part Current Mini mal Lot# / Charge Number Stock Stock Serial# Code Acist Acist 2 [id number] 168465 451451 052568 20 Syringe Medical Systems Inc Acist Hand Acist 2 77943 741383 285134 369449 5 Playchemy Medical Systems Inc Bag Microtek 2 2002S 609667 77478 548370 5 ALKALINE WATER Inc. Medline Cardinal 2 [id number] 466927 24650 505319 5 Deligic Terumo 6Fr Terumo 1 [id number] 798884 989779 143128 [address] Farhad 2 [id number] 704068 727798 992737 30 260cm J .035 wire Merit Merit 2 [id number] 511368 523743 751321 15 BasixTrippeo Medical Inflation Kit Acist Acist 2 66659 360274 885104 898485 5 Precision Optics Medical Systems Inc Tegaderm 4 3M 2 1626W 240267 688598 242179 5 x 4 Cruz Cruz 1 [id number] 415726 013392 750440 5 Whisper J Vascular 300cm 0.014 guide wire Terumo 7Fr Terumo 1 [id number] 486065 464542 594239 5 Thayer Sheath Medtronic Medtronic 1 [id number] 860847 933548 119109 0 Launcher 7Fr AR 2.0 SH guide catheter Terumo 7Fr Terumo 1 [id number] 271006 329065 168030 5 Thayer Destination Sheath Medtronic Medtronic 1 [id number] 083756 882240 585290 0 Launcher 7Fr HS I guide catheter Newport Sci Newport 1 [id number] 376632 172052 500617 5 Choice PT Scientific Extra Support J 300cm .014 gu Newport Sci Newport 1 [id number] 282697 702297 582725 1 [id number] What's Trending 3.0 X 12 balloon Biofreedom Biosensors 1 [id number] 647305 580262 5 [id number] 3.0 x 8 [place] SA stent (No Cost Implant) Cordis 7Fr Cardinal 1 [id number] 302328 010404 740362 [address] Farhad 1 [id number] 796415 533513 881605 5 Femstop Arch Gold Signature Audit [place] Stage Time Signature Unsigned Intra-Procedure 11/02/2016 Diann Holliday 11:24:23 AM RT(R) Signatures Monitor : Laura Phelan Signature : RT Date : Time : [place] [id number] [facility] [place] [address]
--- NOTE | ~2016-11-01 | HEMODYNAMI ---
PATIENT:MILAGRO WALKER MEDICAL RECORD: [id number] : 35 LOCATION:[facility] ADMISSION DATE: 11/01/16 Generatedon:11/01/201610:55 Patient name: MILAGRO WALKER Patient #: [id number] SSN: [id number] : 1935 Date of study: 11/01/2016 Page: Of Hemodynamic Procedure Report Patient Data Patient Demographics Procedure consent was obtained First Name: MILAGRO Gender: Female Last Name: AARON : 1935 [facility] Initial: S Age: 81 year(s) Patient #: [id number] Race: Black SSN: [id number] Additional ID: [id number] Contact details Address: [address] [place] [address] State: [place] City: [facility] Zip code: [address] Past Medical History Allergies: No known allergies Admission Admission Data Admission Date: 11/01/2016 Admission Time: 7:42 Arrival Date: 11/01/2016 Arrival Time: 10:00 Admit Source: Other Insurance Payor: Medicare Height (in.): 65 BSA: 1.57 (m2) Height (cm.): 165.1 BMI: 19.3 (kg/m2) Weight (lbs.): 116 Weight (kg.): 52.62 Lab Results Lab Result Date: 11/01/2016 Lab Result Time: 0:00 Biochemistry Name Units Result Min Max BUN mg/dl 43 --(----)-* 7 18 Creatinine mg/dl 7.3 --(----)-* 0.6 1.3 CBC Name Units Result Min Max Hemoglobin g/dl 10.7 *-(----)-- 13.5 17.5 Procedure Procedure Types Cath Procedure Diagnostic Procedure LHC LH w/Coronaries PCI Procedure Coronary Stent Initial Miscellaneous Procedures Moderate Sedation up to 30 minutes Procedure Description Procedure Date Procedure Date: 11/01/2016 Procedure Start Time: 10:25 Procedure End Time: 10:50 Procedure Staff Name Function Josafat Chisholm MD Performing Physician Hugo Driver RT Scrub Arleth Benedict RN Nurse Diann Holliday RT Monitor Procedure Data Cath Procedure Fluoroscopy Diagnostic fluoroscopy Total fluoroscopy Time: 9.4 time: 9.4 min min Diagnostic fluoroscopy Total fluoroscopy dose: 494 dose: 494 mGy mGy Contrast Material Contrast Material Type Amount (ml) Isovue 370 107 Entry Location Entry Primary Successful Side Size Upsize Upsize Entry Closure Succes sful Closure Location (Fr) 1 (Fr) 2 (Fr) Remarks Device Remarks Femoral Right 5 Fr 6 Fr 6 Fr Exoseal artery Short Long Estimated blood loss: 5 ml Diagnostic catheters Device Type Used For End Catheter Placement Cordis 5Fr Pigtail LV Angiography Catheter (MP) Cordis 5Fr JL 4.0 Left Coronary Catheter (MP) Angiography Cordis 5Fr 3DRC Catheter Right Coronary (MP) Angiography Procedure Complications No complications Procedure Medications Medication Administration Route Dosage Oxygen NC 2 l/min Lidocaine 2% added to field 20 Heparin Flush Bag added to field 2 bags (1000units/500ml NS) 0.9% NaCl I.V. 50 ml/hr Versed I.V. 1 mg Fentanyl I.V. 50 mcg Versed I.V. 1 mg Fentanyl I.V. 50 mcg Heparin Bolus I.V. 4000 units Integrilin (Bolus I.V. 4.5 ml 2mg/ml) Plavix P.O. 600 mg Hemodynamics Rest BSA: 1.57 (m2) HGB: 10.7 (g/dl) O2 Consumption: Estimated: 137.72 (ml/min) O2 Co nsumption indexed: Estimated:87.72 (ml/min/m) Heart Rate: 65 (bpm) Pressure Samples Time Site Value (mmHg) Purpose Heart Use Rate(bpm) 10:28 LV 65/7,15 Snapshot 67 Snapshots Pre Cath Intra NCS Post Cath Vital Signs Time Heart Resp SPO2 etCO2 XG0lxfu NIBP (mmHg) Rhythm Pain Sedation Rate (ipm) (%) (mmHg) (mmHg) Status Level (bpm) 10:17:20 63 17 100 0 0 177/69(151) NSR 0 (11) 10(A) , No pain 10:21:48 63 16 100 0 0 177/75(141) NSR 0 (11) 10(A) , No pain 10:26:21 65 15 97 0 0 161/62(127) NSR 0 (11) 9(A) , No pain 10:30:43 73 17 98 0 0 141/74(120) NSR 0 (11) 9(A) , No pain 10:35:05 69 19 98 0 0 148/55(121) NSR 0 (11) 9(A) , No pain 10:39:31 69 16 99 0 0 129/50(104) NSR 0 (11) 9(A) , No pain 10:43:47 68 17 99 0 0 144/55(107) NSR 0 (11) 9(A) , No pain 10:48:05 71 16 99 0 0 143/71(124) NSR 0 (11) 10(A) , No pain 10:54:55 76 16 100 0 0 170/77(131) NSR 0 (11) 10(A) , No pain Medications Time Medication Route Dose Verified Delivered Reason Notes Effectiveness by by 10:16:48 Oxygen NC 2 Josafat Buffie used for l/min Phan Benedict RN procedure 10:17:07 Lidocaine 2% added 20ml Josafat Josafat for local to vial Phan Chisholm MD anesthetic field 10:17:12 Heparin Flush added 2 Josafat Josafat used for Bag to bags Phan Chisholm MD procedure (1000units/500ml field NS) 10:17:21 0.9% NaCl I.V. 50 Josafat Buffie Per physician ml/hr Phan Benedict RN 10:20:33 Versed I.V. 1 mg Josafat Watkinsie for sedation Phan Benedict RN 10:20:39 Fentanyl I.V. 50 Josafat Buffie for sedation mcg Phan Benedict RN 10:24:35 Versed I.V. 1 mg Josafat Buffie for sedation Phan Benedict RN 10:24:39 Fentanyl I.V. 50 Josafat Watkinsie for sedation mcg Phan Benedict RN 10:38:51 Heparin Bolus I.V. 4000 Josafat Buffie for verifi ed units Phan Benedict RN anticoagulation with dr chisholm 10:40:41 Integrilin I.V. 4.5 Josafat Watkinsie for Wasted (Bolus 2mg/ml) ml Phan Benedict RN antiplatelet 5.5 ml therapy of vial 10:51:28 Plavix P.O. 600 Josafat Reinoso for mg Phan Benedict RN antiplatelet therapy Procedure Log Time Note 10:00:54 Hugo Driver RT(R) sent for patient. Start room use. 10:09:32 Informed consent obtained and on chart 10:09:53 Admit Source: Other 10:09:57 Arrival Date: 11/01/2016 10:00:00 AM 10:10:04 Insurance Payor : Medicare 10:10:14 Patient Height : 65 cm 10:10:19 Patient Weight : 116 kg 10:10:34 Diagnostic Cath Status : Elective 10:11:01 Time tracking: Regular hours 10:11:06 Plan of Care:Hemodynamics will remain stable., Cardiac rhythm will remain stable., Comfort level will be maintained., Respiratory function will remain adequate., Patient/ family verbilizes understanding of procedure., Procedure tolerated without complication., Recovers from procedure without complications.. 10:11:13 Patient received from Pre/Post Procedure Room to CCL 1 Alert and oriented. Tansferred to table in Supine position. 10:11:13 Warm blankets applied, and terra hugger turned on for patient comfort. 10:11:14 Correct patient and procedure confirmed by team. 10:11:14 ECG and BP/O2 sat monitors applied to patient. 10:16:02 Baseline sample Acquired. 10:16:02 Vital chart was started 10:16:06 Rhythm: sinus rhythm 10:16:08 Full Disclosure recording started 10:16:22 H&P Date Dictated: 10/04/2016 Within 30 days and on chart., H&P Addendum completed by physician on day of procedure. (MUST COMPLETE FOR ALL OUTPATIENTS). 10:16:24 Pre-procedure instructions explained to patient. 10:16:25 Pre-op teaching completed and patient verbalized understanding. 10:16:25 Family in waiting room. 10:16:27 Patient NPO since Midnight. 10:16:36 Is the patient allergic to Iodine/contrast media? No. 10:16:37 Was the patient premedicated? No 10:16:42 Is patient on blood thinner?No 10:16:46 Patient diabetic? No. 10:16:48 Oxygen 2 l/min NC was administered by Arelth Benedict RN; used for procedure; 10:16:49 Previous problem with sedation/anesthesia? No ? 10:16:51 Snore? Yes 10:16:52 Sleep apnea? No 10:16:53 Deviated septum? No 10:16:54 Opens mouth fully? Yes 10:16:54 Sticks out tongue? Yes 10:16:56 Airway obstruction? No ? 10:17:00 Dentures? Yes in tight 10:17:07 Lidocaine 2% 20ml vial added to field was administered by Josafat Chisholm MD; for local anesthetic; 10:17:12 Heparin Flush Bag (1000units/500ml NS) 2 bags added to field was administered by Josafat Chisholm MD; used for procedure; 10:17:21 0.9% NaCl 50 ml/hr I.V. was administered by Arleth Benedict RN; Per physician; 10:19:06 Pre procedure: right dorsailis pedis pulse 2+ Normal; easily identifiable; not easily obliterated 10:19:09 Patient pain scale 0/10 ?. 10:19:14 IV patent on arrival in left forearm with 0.9% NaCl at [facility]. 10:19:38 Lab Result : BUN 43 mg/dl 10:19:38 Lab Result : Hemoglobin 10.7 g/dl 10:19:38 Lab Result : Creatinine 7.3 mg/dl 10:19:41 Lab results completed and on chart. 10:19:46 Right groin area was prepped with chlora-prep and draped in sterile fashion 10:19:48 Alarms reviewed by R. N. 10:19:49 Sharps counted by scrub and verified by R.N. 10:19:51 Physician arrived 10:19:51 --------ALL STOP TIME OUT------ 10:19:52 Final Timeout: patient, procedure, and site verified with staff and physician. All members of the team are in agreement. 10:19:54 Right groin site verified by team. 10:19:58 Physical assessment completed. ASA score P 3 - A patient with severe systemic disease as per Josafat Chisholm MD. 10:20:01 Sedation plan: IV Moderate Sedation Versed, Fentanyl 10:20:05 Use device set Femoral Dx 10:20:06 Acist Syringe opened to sterile field. 10:20:06 Bag Decanter opened to sterile field. 10:20:06 Medline Cath Pack opened to sterile field. 10:20:07 Terumo 5Fr Clune Sheath opened to sterile field. 10:20:08 St Farhad 260cm J .035 wire opened to sterile field. 10:20:09 Acist Hand Control opened to sterile field. 10:20:09 Acist Manifold opened to sterile field. 10:20:10 Diagnostic Infinity 5Fr Multipack catheter opened to sterile field. 10:20:10 Tegaderm 4 x 4 opened to sterile field. 10:20:33 Versed 1 mg I.V. was administered by Arleth Benedict RN; for sedation; 10:20:39 Fentanyl 50 mcg I.V. was administered by Arleth Benedict RN; for sedation; 10:24:06 Zero performed for pressure channel P1 10:24:35 Versed 1 mg I.V. was administered by Arleth Benedict RN; for sedation; 10:24:39 Fentanyl 50 mcg I.V. was administered by Arleth Benedict RN; for sedation; 10:25:55 Procedure started. 10:25:58 Local anesthetic to right femoral artery with Lidocaine 2% by Josafat Chisholm MD.INITIAL ACCESS ONLY 10:26:11 A 5 Fr sheath was inserted into the Right Femoral artery 10:27:00 A Cordis 5Fr Pigtail Catheter (MP) was advanced over the wire and used for LV Angiography. 10:28:42 LV hemodynamics recorded. 10:28:43 LV gram done using BARR 10:28:45 Injector settings: Ml/sec: 5, Volume: 15, 10:28:51 EF : 50 % 10:28:54 Catheter removed. 10:28:59 A Cordis 5Fr JL 4.0 Catheter (MP) was advanced over the wire and used for Left Coronary Angiography. 10:30:07 LCA angiography performed. 10:30:11 Injector settings: Ml/sec: 3, Volume: 6, 10:30:38 Catheter removed. 10:30:44 A Cordis 5Fr 3DRC Catheter (MP) was advanced over the wire and used for Right Coronary Angiography. 10:31:41 Cruz Whisper J 300cm 0.014 guide wire opened to sterile field. 10:31:42 Merit BasixCompak Inflation Kit opened to sterile field. 10:31:42 Terumo 6Fr Clune Sheath opened to sterile field. 10:32:05 RCA angiography performed. 10:32:08 Injector settings: Ml/sec: 3, Volume: 6, 10:32:23 Catheter removed. 10:32:24 Proceeding to intervention. 10:32:32 Sheath upsized to a 6 Fr Short. 10:32:51 Cordis 6FR XBLAD 3.5 guide catheter opened to sterile field. 10:33:34 6 Fr xblad 3.5 guide catheter was inserted over the wire 10:34:33 [place] Sci Choice PT Extra Support J 300cm .014 gu opened to sterile field. 10:36:03 Guide Catheter removed. unable to get back-up support 10:36:12 Terumo 6Fr Clune Destination Sheath opened to sterile field. 10:36:24 Sheath upsized to a 6 Fr Long. 10:37:22 [place] Sci Mach 1 6Fr Q 4.0 guide catheter opened to sterile field. 10:38:40 Guide Catheter removed. unable to cannulate vessel. 10:38:51 Heparin Bolus 4000 units I.V. was administered by Arleth Benedict RN; for anticoagulation; verified with dr chisholm 10:39:33 6 Fr xblad 3.5 guide catheter was inserted over the wire 10:40:41 Integrilin (Bolus 2mg/ml) 4.5 ml I.V. was administered by Arleth Benedict RN; for antiplatelet therapy; Wasted 5.5 ml of vial 10:40:46 choice pt wire advanced. 10:42:50 Inflation number: 1 A [place] Sci [place] 2.0 X 15 balloon was prepped and advanced across the Mid LAD, then inflated to 21 BRIELLE for 0:10 (min:sec). 10:44:21 Balloon removed over the wire. 10:45:48 Inflation Number: 2 A Biofreedom 3.0 x 14 stent (No Cost Implant) was prepped and advanced across the Mid LAD. The stent was deployed at 13 BRIELLE for 0:10 (min:sec). 10:46:04 Inflation number: 3 The stent balloon was then re-inflated across the Mid LAD to 15 BRIELLE for 0:10 (min:sec). 10:46:42 Stent catheter was removed intact over wire. 10:46:43 Wire removed. 10:46:44 Guide catheter removed. 10:47:21 Long sheath exchanged for short 6F Clune sheath 10:47:26 Cordis 6Fr Exoseal opened to sterile field. 10:48:39 Sheath removed intact; hemostasis achieved with Exoseal to the Right Femoral artery. 10:48:44 Procedure ended.(Physican Out) 10:48:51 Fluoroscopy time 09.40 minutes. 10:48:59 Fluoroscopy dose: 494 mGy 10:48:59 Flurop Dose total: 494 10:49:13 Contrast amount:Isovue 370 107ml. 10:49:30 Sharps counted by scrub and verified by R.N. 10:49:32 Insertion/operative site no bleeding no hematoma. 10:49:34 Post-op/insertion site Right Femoral artery dressed using a 4 x 4 and Tegaderm. 10:49:37 Post right femoral artery:stable 10:49:59 Post Procedure Pulses reassessed and unchanged 10:50:07 Post procedure rhythm: unchanged. 10:50:09 Estimated blood loss: 5 ml 10:50:11 Post procedure instruction explained to patient.Patient verbalizes understanding. 10:50:11 Patient needs reinforcement of post procedure teaching. 10:50:35 Procedure type changed to Cath procedure, Diagnostic procedure, LHC, LHC w/Coronaries, PCI procedure, Coronary Stent Initial, Miscellaneous Procedures, Moderate Sedation up to 30 minutes 10:50:36 Procedure and supply charges have been captured, reviewed, submitted and are correct. 10:50:40 Procedure Complication : No complications 10:50:42 Vital chart was stopped 10:50:43 See physician's report for complete and final results. 10:50:46 Report given to [facility]. 10:50:49 Patient transfered to [facility] with Stretcher. 10:50:53 Procedure ended. 10:50:53 Full Disclosure recording stopped 10:51:12 ACC-PCI Only Patient was given prescriptions, or instructed by Josafat Chisholm MD to start/continue the following medications upon discharge: Plavix 10:51:13 End room use (Document Last) 10:51:28 Plavix 600 mg P.O. was administered by Arleth Benedict RN; for antiplatelet therapy; Intervention Summary Intervention Notes Time ActionType Lesion and Equipment Action# Pressure Duration Attributes Used 10:42:50 Inflate Mid LAD [place] Sci 1 21 00:10 balloon [place] 2.0 X 15 balloon 10:45:48 [address] stent Mid LAD Biofreedom 2 13 00:10 3.0 x 14 stent (No Cost Implant) 10:46:04 Reinflate Mid LAD Biofreedom 3 15 00:10 stent 3.0 x 14 balloon stent (No Cost Implant) Device Usage Item Name Manufacture Quantity Catalog Number Hospital Part Current Mini mal Lot# / Charge Number Stock Stock Serial# Code Acist Acist 1 23847 077877 045430 718501 20 Syringe Medical Systems Inc Bag Microtek 1 2002S 166576 57655 988042 5 MetalCompass Inc. Medline Cardinal 1 [id number] 015454 17441 840557 5 Cath Pack Health Terumo 5Fr Terumo 1 [id number] 468181 509845 512928 [address] Far[address] St Farhad 1 449376 505835 535566 001763 30 260cm J .035 wire Acist Hand Acist 1 48646 246282 577110 220516 5 Control Medical Systems Inc Acist Acist 1 63997 211272 977570 973627 5 Edserv Softsystems Medical Systems Inc Diagnostic Cardinal 1 EB3831 975744 11794 825824 30 Infinity Health 5Fr Multipack catheter Tegaderm 4 3M 1 1626W 474593 701463 785158 5 x 4 Cordis 5Fr Cardinal 1 297914 5 Pigtail Health Catheter (MP) Cordis 5Fr Cardinal 1 462614 5 JL 4.0 Health Catheter (MP) Cordis 5Fr Cardinal 1 719798 5 3DRC Health Catheter (MP) Cruz Cruz 1 [id number] 091418 629745 676274 5 Whisper J Vascular 300cm 0.014 guide wire Merit Merit 1 AS1430 174607 881535 709754 15 Control4azSpor Medical Inflation Kit Terumo 6Fr Terumo 1 EFW358 222350 206390 658200 40 Clune Sheath Cordis 6FR Cardinal 1 [id number] 221487 721557 314782 10 XBLAD 3.5 Health guide catheter [place] Sci [place] 1 [id number] 78898520181218 928865 5 Choice PT Scientific Extra Support J 300cm .014 gu Terumo 6Fr Terumo 1 RSR01 901910 99300 744721 5 Clune Destination Sheath [place] Sci [place] 1 [id number] 813778 904856 050467 1 Mach 1 6Fr Scientific Q 4.0 guide catheter [place] Sci [place] 1 [id number] 648621 088965 925493 1 [id number] Symform 2.0 X 15 balloon Biofreedom Biosensors 1 [facility]-3014 127453 802037 5 [id number] 3.0 x 14 [place] SA stent (No Cost Implant) Cordis 6Fr Cardinal 1 EX600 819634 030575 230439 10 [facility] Health Signature Audit [place]win Stage Time Signature Unsigned Intra-Procedure 11/01/2016 Diann Holliday 10:55:37 AM RT(R) Signatures Monitor : Diann Holliday RT Signature : Date : Time : [id number] [place] [address]
--- NOTE | ~2016-11-01 | DS ---
PATIENT:MILAGRO WALKER :35 MEDICAL RECORD: [id number] DISCHARGE SUMMARY ADMISSION DATE: 11/01/16 DISCHARGE DATE: 11/02/16 DATE OF DISCHARGE: 11/02/2016 DISCHARGE DIAGNOSES: 1. Angina. 2. Coronary artery disease. 3. Percutaneous transluminal coronary angioplasty stent to left anterior descending and right coronary artery this admission. HOSPITAL COURSE: Mrs. Walker presents with anginal symptomatology, found to have critical 3-vessel coronary artery disease, total occlusion of the left circumflex with collaterals, significant stenosis of the LAD and RCA, underwent successful PTCA stent to the LAD and RCA, had an uneventful postop course. She was discharged home with the addition of Plavix to her medical regimen. We will follow up with [facility] in 1 month. TRANSINT:[id number] Voice Confirmation ID: [id number] DOCUMENT ID: [id number] KARLEY LONDONO MD CC: [id number] DICTATION DATE: 11/02/16 1108 SENIOR FINANCIAL ACCOUNTANT: 11/03/16 0148 DEP CLI 11/02/[address] [address]
[2016-11-01] MEDS ORDERED: HYDROCODON-ACE1 EAC7 PO (08:15)
[2016-11-01 08:28] VITALS: BMI 19.3
[2016-11-01 08:48] LABS: BASOPHILS 0.2 % (0-2); EOSINOPHILS 1.2 % (0-7); HEMATOCRIT 34.4 % (36.0-48.0); HEMOGLOBIN 10.7 g/dL (12-16); IMMATURE GRANULOCYTES 0.2 % (0-5); LYMPHOCYTES 12.7 % (15-50); MCH 28.9 pg (26.0-34.0); MCHC 31.1 g/dL (31.0-37.0); MEAN PLATELET VOLUME 9.4 fL (7.4-10.4); MONOCYTES 11.9 % (2-11); NEUTROPHILS 73.8 % (40-80); RDW 16.1 % (11.5-14.5); WBC 4.8 10x3/uL (4.8-10.8)
[2016-11-01 08:49] LABS: PLATELET COUNT 161 10x3/uL (130-400)
[2016-11-01 09:27] LABS: CALC OSMOLALITY 289 mosm/kg (275-300); CALCIUM 9.6 mg/dL (8.5-10.1); CARBON DIOXIDE 30.4 mmol/L (21.0-32.0); CHLORIDE - SERUM 103 mmol/L (98-107); CKMB 0.7 U/L (0.0-3.6); CREATINE KINASE 49 UL (21-215); CREATININE - SERUM 7.3 mg/dL (0.6-1.3); GLUCOSE 83 mg/dL (74-106); POTASSIUM - SERUM 4.2 mmol/L (3.5-5.1); SODIUM 141 mmol/L (136-145); UREA NITROGEN 41 mg/dL (7-18); eGFR NON AFRICAN AMERICAN 6 mL/min (90-120)
--- NOTE | 2016-11-01 11:10 | NUR ---
RECEIVED PT FROM REFINISH TECHNICIAN VIA BED FEMSTOP INTACT TO RT GROIN NO S/S OF BLEEDING PPPX4 RESP UNLABORED VSS PT AAOX4 TALKING STATES VERY SLEEPY
[2016-11-01 11:43] VITALS: BP 162/66
[2016-11-01 11:47] VITALS: Ht 165.1 cm; Wt 49.7 kg
[2016-11-01 16:35] VITALS: BP 166/66
[2016-11-01 19:00] VITALS: BP 170/69
--- NOTE | 2016-11-01 19:00 | NUR ---
INITIAL ROUNDS MADE. PT SITTING UP IN BED WATCHING TV. NO NEEDS OR C/O VOICED AT THIS TIME. TELE SR. CONSENTS OBTAINED FOR [facility] IN AM. DISCUSSED PLAN OF CARE AND NPO AFTER MN. CALL LIGHT IN REACH. WILL CONT TO MONITOR.
[2016-11-02 00:09] VITALS: BP 190/78
--- NOTE | 2016-11-02 03:31 | NUR ---
CITY AUDITOR AT BEDSIDE FOR VS. NEEDS ADDRESSED AT THIS TIME. CALL LIGHT IN REACH. WILL CONT TO MONITOR.
[2016-11-02 04:32] VITALS: BP 159/75
--- NOTE | 2016-11-02 06:27 | NUR ---
PRE CATH BATH COMPLETE.
[2016-11-02 07:53] VITALS: BP 161/71
--- NOTE | 2016-11-02 07:57 | OP ---
PATIENT NAME: MILAGRO WALKER MEDICAL RECORD: [id number] :35 LOCATION:D.M2 D.2117 ADMISSION DATE: SURGEON: KARLEY LONDONO MD DATE OF OPERATION: 11/01/2016 PROCEDURES: 1. PTCA stent LAD. 2. Left heart catheterization. 3. Selective coronary angiography. 4. Left ventriculogram. INDICATIONS: Angina and coronary artery disease. PROCEDURE IN DETAIL: After informed consent was obtained and after detailed explanation of risks, benefits as well as alternative therapies, the patient elected to proceed with angiogram and angioplasty. The right femoral area was prepped and draped in normal sterile fashion. The right femoral artery was cannulated via modified Seldinger technique with placement of 6-Gabonese sheath. All catheters exchanged through this sheath. FINDINGS: Left ventriculogram was performed in the standard 30-degree BARR view, reveals preserved cardiac wall motion, ejection fraction 50%. SELECTIVE CORONARY ANGIOGRAPHY: 1. Left main showed no significant angiographic disease. 2. Left anterior descending has a 90% stenosis in the mid vessel followed by a 95% stenosis in the very distal vessel at the apex. 3. Left circumflex has a 100% occlusion in the mid vessel. The distal circumflex fills via jdrv-xg-sgre and srugz-gm-xbis collaterals. 4. Right coronary has a 90% stenosis in the mid vessel. PTCA STENT OF THE LAD: We tried to get a wire to the distal 95% stenosis; however, due to extreme tortuosity and calcification of the vessel, no wire would even go close to that lesion. We turned our attention to the 90% mid stenosis. This was addressed with a 3.0 x 14 mm BioFreedom stent. Result was 0% residual stenosis. The lesion had NATALIA 3 flow before and after. The lesion was approximately 12 mm in length. OVERALL IMPRESSION: Successful percutaneous transluminal coronary angioplasty stent of the left anterior descending going from 90% initial stenosis to 0% residual. PLAN: PTCA stent of the RCA in the near future and treatment of circumflex disease medically. TRANSINT:[id number] Voice Confirmation ID: [id number] DOCUMENT ID: [id number] OPERATIVE REPORT [id number] MILAGRO WALKER KARLEY LONDONO MD at 0757 CC: [id number] DICTATION DATE: 11/01/161102 WAREHOUSE FOREMAN: 11/01/16 1311 REG [facility] [address] [place] [address]
[2016-11-02 08:36] LABS: ANION GAP 15.5 mmol/L (8-16); CALCIUM 9.2 mg/dL (8.5-10.1); CARBON DIOXIDE 25.3 mmol/L (21.0-32.0); CREATININE - SERUM 8.7 mg/dL (0.6-1.3); POTASSIUM - SERUM 4.8 mmol/L (3.5-5.1)
--- NOTE | 2016-11-02 10:03 | NUR ---
PRE-OPS GIVEN. TO SEO INTERN BY BED.
--- NOTE | 2016-11-02 11:43 | NUR ---
BACK FROM CATHLAB. VS WNL. LEFT GROIN STABLE WITH FEMSTOP INTACT. WILL MONITOR.
--- NOTE | 2016-11-02 13:05 | NUR ---
UNABLE TO DC FEMSTOP DUE TO BLEEDING. DILAYSIS NURSE NOTIFIED.
--- NOTE | 2016-11-02 14:26 | NUR ---
FEMSTOP DCD WITHOUT BLEEDING OR HEMATOMA NOTED.
[2016-11-02] MEDS ORDERED: PLAVIX75 MG PO (14:38)
[2016-11-02 15:59] VITALS: BP 163/71
--- NOTE | 2016-11-02 16:44 | NUR ---
BED REST UP. GROIN STABLE.
--- NOTE | 2016-11-02 17:46 | NUR ---
IV AND TELEMETRY DCD. DC PLANS GIVEN. UNDERSTANDING VOICED. ESCORTED TO CAR BY W/C.
[2016-11-02 17:59] LABS: CKMB 1.4 U/L (0.0-3.6); CREATINE KINASE 57 UL (21-215)
[2016-11-02 18:00] LABS: TROPONIN-I 0.136 ng/mL (0.000-0.060)
== END 2016-11-02 17:58 | disposition home or self-care (01) ==
LOC: D.CATH 07:42 → D.M2 07:42 → D.CATH 10:00 → D.M2 10:59 → D.CATH 11-02 17:58
PROVIDERS: Internal Medicine Interventional Cardiology; Internal Medicine Nephrology
DX: I25.119 Atherosclerotic heart disease of native coronary artery with unspecified angina pectoris (principal); Z00.6 Encounter for examination for normal comparison and control in clinical research program
CPT/HCPCS: 93458; C9600 ×2

== ENCOUNTER → 2017-01-24 09:37 | Outpatient (CLI) | payer MEDICARE, OTHER ==
[2016-11-01 11:47] VITALS: BMI 19.3
[~2017-01-24 09:37] MED LIST changes: +HYDROCODON-ACE1 EAC7 PO; +PLAVIX75 MG PO
== END | disposition home or self-care (01) ==
LOC: D.US 09:37
DX: I70.223 Atherosclerosis of native arteries of extremities with rest pain, bilateral legs (principal)

== ENCOUNTER → 2017-03-28 08:00 | Outpatient (CLI) | payer MEDICARE, OTHER ==
[2016-11-01 11:47] VITALS: BMI 19.3
[~2017-03-28 08:00] MED LIST changes: +CALMOSEPTINE OI71 GM TOPICAL; +CARAFATE1 G/10 ML PO; +MIDODRINE HCL5 MG PO; +PREDNISONE10 MG PO
== END | disposition home or self-care (01) ==
LOC: D.US 03-27 10:00
DX: I71.4 Abdominal aortic aneurysm, without rupture (principal); I65.23 Occlusion and stenosis of bilateral carotid arteries

== ENCOUNTER 2017-06-23 11:24 | Emergency (ER) | payer MEDICARE, OTHER ==
[2016-11-01 11:47] VITALS: BMI 19.3
[~2017-06-23 11:24] MED LIST changes: -CALMOSEPTINE OI71 GM TOPICAL; -CARAFATE1 G/10 ML PO; -MIDODRINE HCL5 MG PO; -PREDNISONE10 MG PO
[2017-06-23 13:47] LABS: BASOPHILS 0.4 % (0-2); EOSINOPHILS 1.3 % (0-7); HEMOGLOBIN 12.6 g/dL (12-16); IMMATURE GRANULOCYTES 0.2 % (0-5); LYMPHOCYTES 15.2 % (15-50); MCH 28.8 pg (26.0-34.0); MCHC 31.5 g/dL (31.0-37.0); MCV 91.5 fL (80.0-100.0); MEAN PLATELET VOLUME 9.2 fL (7.4-10.4); MONOCYTES 7.8 % (2-11); NEUTROPHILS 75.1 % (40-80); PLATELET COUNT 138 10x3/uL (130-400); RBC 4.37 10x6/uL (4.00-5.40); RDW 18.2 % (11.5-14.5); WBC 4.7 10x3/uL (4.8-10.8)
[2017-06-23 14:14] LABS: INR 1.02 (0.85-1.17)
[2017-06-23 14:18] LABS: ALBUMIN 3.5 g/dL (3.4-5.0); ANION GAP 16.7 mmol/L (8-16); BILIRUBIN - TOTAL 0.54 mg/dL (0.2-1.3); CARBON DIOXIDE 30.6 mmol/L (21.0-32.0); CREATININE - SERUM 4.4 mg/dL (0.6-1.3); POTASSIUM - SERUM 3.3 mmol/L (3.5-5.1); PROTEIN - SERUM 7.4 g/dL (6.4-8.2)
== END 2017-06-23 13:59 | disposition home or self-care (01) ==
LOC: D.ER 11:24
PROVIDERS: Nurse Practitioner Family
DX: M10.071 Idiopathic gout, right ankle and foot (principal); L02.612 Cutaneous abscess of left foot; I12.0 Hypertensive chronic kidney disease with stage 5 chronic kidney disease or end stage renal disease; N18.6 End stage renal disease; Z99.2 Dependence on renal dialysis

== ENCOUNTER 2017-06-28 10:34 | Inpatient (IN) | payer MEDICARE, OTHER ==
[~2017-06-28] VITALS: Ht 165.1 cm; Wt 59.1 kg
--- NOTE | ~2017-06-28 | OP ---
PATIENT NAME: MILAGRO WALKER MEDICAL RECORD: [id number] :35 LOCATION:D.M2 D.2114 ADMISSION DATE:06/28/17 SURGEON: KARLEY LONDONO MD DATE OF OPERATION: 06/29/2017 PROCEDURES: 1. Aortofemoral runoff. 2. Abdominal aortography. INDICATION: Limb threatening ischemia, peripheral vascular disease, and claudication. PROCEDURE IN DETAIL: After informed consent was obtained and after detailed explanation of risks, benefits as well as alternative therapies, the patient elected to proceed with angiogram. The right femoral area was prepped and draped in normal sterile fashion. The right femoral artery was cannulated via modified Seldinger technique with placement of 5-Divehi sheath. All catheters exchanged through this sheath. FINDINGS: Abdominal aortography was performed. The catheter was pulled down for aortofemoral runoff. Abdominal aortography reveals a previously placed stent graft, this is well positioned. No evidence of leaking. 1. Right leg: A. Iliac: The common iliac was replaced with the stent graft. This was widely patent. Iliac system elsewise has moderate irregularities. B. Femoral system: The common and deep femoral are widely patent. Superficial femoral has 95% stenosis with heavy calcification in the mid distal vessel. C. Popliteal and infrapopliteal vessels: The popliteal is patent and infrapopliteal vessels are patent, although severely diffusely diseased, but there is somewhat preserved 3-vessel runoff to the foot. 2. LEFT LEG: A. Iliac: The common iliac was replaced with a stent graft from the abdominal aorta grafting. This was widely patent. The remainder of the iliac system is widely patent as well. B. Femoral system: The common and deep femoral are widely patent. The superficial femoral has a 95% to 99% stenosis in the mid distal vessel. This is followed by patency of the remainder of the SFA. Popliteal is patent. Infrapopliteal vessels are severely diffusely diseased, but there is runoff to the foot. OVERALL IMPRESSION: Wide patency of the stent grafts, wide patency of the iliacs, severe stenosis of the SFAs bilaterally amenable to transcatheter revascularization via antegrade approach only. TRANSINT:[id number] Voice Confirmation ID: [id number] DOCUMENT ID: [id number] KARLEY LONDONO MD at 1323 CC: [id number] DICTATION DATE: 06/29/17 1241 MOLD DUMPER: 06/29/17 1415 ADM IN [facility] [address] [id number]
--- NOTE | ~2017-06-28 | HEMODYNAMI ---
PATIENT:MILAGRO WALKER MEDICAL RECORD: [id number] : 35 [id number] ADMISSION DATE: 06/28/17 Generatedon:06/30/20178:58 Patient name: MILAGRO WALKER Patient #: [id number] SSN: [id number] : 1935 Date of study: 06/30/2017 Page: Of Hemodynamic Procedure Report Patient Data Patient Demographics Procedure consent was obtained First Name: MILAGRO Gender: Female Last Name: AARON : 1935 Middle Initial: S Age: 82 year(s) Patient #: [id number] Race: Black SSN: [id number] Additional ID: [id number] Contact details Address: [address] [place] [address] State: [place] City: [facility] Zip code: [address] Past Medical History Allergies: No known allergies Admission Admission Data Admission Date: 06/28/2017 Admission Time: 10:34 Room #: D.2114 Lab Results Lab Result Date: 06/29/2017 Lab Result Time: 0:00 Biochemistry Name Units Result Min Max BUN mg/dl 30 --(----)-* 7 18 Creatinine mg/dl 5.8 --(----)-* 0.6 1.3 CBC Name Units Result Min Max Hemoglobin g/dl 12 *-(----)-- 13.5 17.5 Procedure Procedure Types Cath Procedure Miscellaneous Procedures Moderate Sedation up to 30 minutes Peripheral vascular Intervention Stent Stent-Fem/Popw/plasty Procedure Description Procedure Date Procedure Date: 06/30/2017 Procedure Start Time: 8:25 Procedure End Time: 8:53 Procedure Staff Name Function Josafat Chisholm MD Performing Physician Diann Holliday RT Monitor Laura Phelan RT Scrub Liliana Pemberton RN Nurse Procedure Data Cath Procedure Fluoroscopy Diagnostic fluoroscopy Total fluoroscopy Time: time: 13.6 min 13.6 min Diagnostic fluoroscopy Total fluoroscopy dose: 65 dose: 65 mGy mGy Contrast Material Contrast Material Type Amount (ml) Isovue 300 144 Entry Location Entry Primary Successful Side Size Upsize Upsize Entry Closure Succes sful Closure Location (Fr) 1 (Fr) 2 (Fr) Remarks Device Remarks Femoral Left 6 Fr Exoseal artery Short Estimated blood loss: 5 ml Procedure Complications No complications Procedure Medications Medication Administration Route Dosage 0.9% NaCl I.V. Oxygen NC 2 l/min Lidocaine 2% added to field 20 Heparin Flush Bag added to field 2 bags (1000units/500ml NS) Versed I.V. 1 mg Fentanyl I.V. 50 mcg Heparin Bolus I.V. 4000 units Versed I.V. 0.5 mg Fentanyl I.V. 25 mcg Fentanyl I.V. 25 mcg Versed I.V. 0.5 mg Versed I.V. 1 mg Hemodynamics Rest Heart Rate: 86 (bpm) Snapshots Pre Cath Intra NCS Post Cath Vital Signs Time Heart Resp SPO2 etCO2 NIBP (mmHg) Rhythm Pain Sedation Rate (ipm) (%) (mmHg) Status Level (bpm) 7:57:15 95 20 100 0 163/85(122) NSR 0 (11) 10(A) , No pain 8:01:29 97 18 100 30.7 170/91(135) NSR 0 (11) 10(A) , No pain 8:05:45 96 14 100 30.7 167/87(132) NSR 0 (11) 10(A) , No pain 8:09:59 97 16 100 29.9 164/89(120) NSR 0 (11) 10(A) , No pain 8:14:15 93 14 100 33.7 160/83(118) NSR 0 (11) 10(A) , No pain 8:18:29 94 13 100 33.7 165/84(127) NSR 0 (11) 10(A) , No pain 8:22:45 92 13 100 32.9 156/82(118) NSR 0 (11) 10(A) , No pain 8:26:59 96 15 100 38.2 152/79(119) NSR 0 (11) 10(A) , No pain 8:31:05 101 21 100 32.2 163/95(125) NSR 0 (11) 9(A) , No pain 8:35:17 97 18 100 34.4 157/91(123) NSR 0 (11) 9(A) , No pain 8:39:26 100 20 100 29.9 164/91(120) NSR 0 (11) 9(A) , No pain 8:43:36 103 17 100 24.7 162/93(124) NSR 0 (11) 9(A) , No pain 8:47:48 99 26 100 28.5 161/92(159) NSR 0 (11) 9(A) , No pain 8:51:56 101 23 100 29.2 166/98(134) NSR 0 (11) 9(A) , No pain 8:55:52 96 21 100 25.5 163/88(121) NSR 0 (11) 10(A) , No pain Medications Time Medication Route Dose Verified Delivered Reason Notes Effectiveness by by 7:56:24 0.9% NaCl I.V. kvo Josafat Ford used for ml/hr Phan Pemberton RN procedure 7:56:35 Oxygen NC 2 Josafat Ford Per physician l/min Phan Pemberton RN 7:56:43 Lidocaine 2% added 20ml Josafat Maurice for local to vial Phan Chisholm MD anesthetic field 7:56:50 Heparin Flush added 2 Josafat Josafat used for Bag to bags Phan Chisholm MD procedure (1000units/500ml field NS) 8:25:53 Versed I.V. 1 mg Josafat Ford for sedation Phan Pemberton RN 8:26:01 Heparin Bolus I.V. 4000 Josafat Ford for verifie d units Phan Pemberton RN anticoagulation by 8:26:01 Fentanyl I.V. 50 Josafat Ford for sedation mcg Phan Pemberton RN 8:27:26 Versed I.V. 0.5 Josafat Ford for sedation verifie d mg Phan Pemberton RN by 8:30:37 Fentanyl I.V. 25 Josafat Ford for sedation verifie d mcg Phan Pemberton RN by 8:30:43 Fentanyl I.V. 25 Josafat Ford for sedation verifie d mcg Phan Pemberton RN by 8:38:56 Versed I.V. 0.5 Josafat Ford for sedation geneifie imka mg Phan Pemberton RN by 8:39:01 Versed I.V. 1 mg Josafat Ford for sedation maylin Pemberton RN by Procedure Log Time Note 7:43:23 Laura Phelan RT(R) sent for patient. Start room use. 7:43:24 Time tracking: Regular hours 7:43:28 Plan of Care:Hemodynamics will remain stable., Cardiac rhythm will remain stable., Comfort level will be maintained., Respiratory function will remain adequate., Patient/ family verbilizes understanding of procedure., Procedure tolerated without complication., Recovers from procedure without complications.. 7:53:12 Patient received from Med II to CCL 2 Alert and oriented. Tansferred to table in Supine position. 7:53:13 Warm blankets applied, and terra hugger turned on for patient comfort. 7:53:14 Correct patient and procedure confirmed by team. 7:53:16 Signed procedure consent form obtained from patient. 7:53:17 ECG and BP/O2 sat monitors applied to patient. 7:53:27 H&P Date Dictated: 06/29/2017 Within 30 days and on chart.. 7:53:28 Pre-procedure instructions explained to patient. 7:53:33 Patient NPO since Midnight. 7:54:07 Family unavailable. 7:55:03 Is the patient allergic to Iodine/contrast media? No. 7:55:04 Was the patient premedicated? Yes 7:55:06 Is patient on blood thinner?Yes 7:55:22 ACC The patient was administered the following blood thiners within the last 24 hours: ACCPlavix 7:55:27 Patient diabetic? No. 7:55:34 Previous problem with sedation/anesthesia? No ? 7:55:37 Snore? Yes 7:55:41 Sleep apnea? No 7:55:47 Sticks out tongue? Yes 7:55:55 Patient pain scale 0/10 ?. 7:56:08 Vital chart was started 7:56:16 IV patent on arrival in right forearm with 0.9% NaCl at KVO. 7:56:24 0.9% NaCl kvo ml/hr I.V. was administered by Liliana Pemberton RN; used for procedure; 7:56:28 Lab results completed and on chart. 7:56:35 Oxygen 2 l/min NC was administered by Liliana Pemberton RN; Per physician; 7:56:36 Left groin area was prepped with chlora-prep and draped in sterile fashion 7:56:37 Alarms reviewed by R. N. 7:56:39 Sharps counted by scrub and verified by R.N. 7:56:43 Lidocaine 2% 20ml vial added to field was administered by Josafat Chisholm MD; for local anesthetic; 7:56:50 Heparin Flush Bag (1000units/500ml NS) 2 bags added to field was administered by Josafat Chisholm MD; used for procedure; 7::53 Full Disclosure recording started 8:04:00 Baseline sample Acquired. 8:04:09 Rhythm: sinus rhythm 8::57 Physician arrived 8::57 --------ALL STOP TIME OUT------ 8:12:57 Final Timeout: patient, procedure, and site verified with staff and physician. All members of the team are in agreement. 8:13:01 Bilateral groins site verified by team. 8:13:04 Physical assessment completed. ASA score P 2 - A patient with mild systemic disease as per Josafat Chisholm MD. 8:13:08 Sedation plan: IV Moderate Sedation Medication:Versed, Fentanyl 8:13:31 Zero performed for pressure channel P1 8:23:52 Procedure started. 8:25:20 Local anesthetic to left femerol artery with Lidocaine 2% by Josafat Chisholm MD.INITIAL ACCESS ONLY 8:25:47 A 6 Fr Short sheath was inserted into the Left Femoral artery 8::53 Versed 1 mg I.V. was administered by Liliana Pemberton RN; for sedation; 8:26:01 Heparin Bolus 4000 units I.V. was administered by Liliana Pemberton RN; for anticoagulation; verified by 8:26:01 Fentanyl 50 mcg I.V. was administered by Liliana Pemberton RN; for sedation; 8:27:21 Left leg runoff performed. 8:27:26 Versed 0.5 mg I.V. was administered by Liliana Pemberton RN; for sedation; verified by 8:29:22 GLIDE CATHETER 5FR STRAIGHT 100cm (CG506) opened to sterile field. 8:29:38 GLIDE WIRE ANGLE 260cm ([id number]) opened to sterile field. 8:29:45 TORQUE DEVICE PLASTIC .038 ( TD01) opened to sterile field. 8:30:02 CHOICE PT Extra Support J 300cm guide wire ([id number]) opened to sterile field. 8:30:37 Fentanyl 25 mcg I.V. was administered by Liliana Pemberton RN; for sedation; verified by 8:30:43 Fentanyl 25 mcg I.V. was administered by Liliana Pemberton RN; for sedation; verified by 8:32:41 5 Fr straight glide catheter guide catheter was inserted over the wire 8:32:54 choice pt wire advanced. 8:34:08 GLIDE CATHETER 5FR ANGLED 100cm (CG508) opened to sterile field. 8:35:09 straight glide catheter exchanged for angled glide catheter 8:38:56 Versed 0.5 mg I.V. was administered by Liliana Pemberton RN; for sedation; verified by 8:39:01 Versed 1 mg I.V. was administered by Liliana Pemberton RN; for sedation; verified by 8:40:12 Catheter removed. 8:43:13 The SABER 5.0 X 200 X 150 balloon ([id number]) was advanced and then removed because in body, not inflated 8:45:17 Inflation number: 1 A SABER 5.0 x 6 x 150 balloon ([id number]) was prepped and advanced across the Distal Superficial Femoral, Left, then inflated to 14 BRIELLE for 0:10 (min:sec). 8:47:40 Balloon removed over the wire. 8:48:44 SMART 6 X 40 X 120 stent ([id number]) was deployed across Distal Superficial Femoral, Left . 8:50:39 EXOSEAL 6Fr (EX600) opened to sterile field. 8:51:14 Sheath removed intact; hemostasis achieved with Exoseal to the Left Femoral artery. 8:51:16 Procedure ended.(Physican Out) 8:51:36 Fluoroscopy time 13.60 minutes. 8:51:41 Fluoroscopy dose: 65 mGy 8:51:41 Flurop Dose total: 65 8:51:56 Contrast amount:Isovue 300 144ml. 8:51:58 Sharps counted by scrub and verified by R.N. 8:52:00 Insertion/operative site no bleeding no hematoma. 8:52:09 Post-op/insertion site Left Femoral artery dressed using a 4 x 4 and Tegaderm. 8:52:14 Post left femerol artery:stable 8:52:16 Post Procedure Pulses reassessed and unchanged 8:52:19 Post procedure rhythm: unchanged. 8:52:21 Estimated blood loss: 5 ml 8:52:23 Post procedure instruction explained to patient.Patient verbalizes understanding. 8:52:24 Patient needs reinforcement of post procedure teaching. 8:52:46 Procedure type changed to Cath procedure, Miscellaneous Procedures, Moderate Sedation up to 30 minutes, Peripheral vascular Intervention, Stent, Stent-Fem/Popw/plasty 8:52:47 Procedure and supply charges have been captured, reviewed, submitted and are correct. 8:52:51 Procedure Complication : No complications 8:52:54 Vital chart was stopped 8:52:55 See physician's report for complete and final results. 8:52:58 Report given to [facility]. 8:53:00 Patient transfered to [facility] with Stretcher. 8:53:03 Procedure ended. 8:53:03 Full Disclosure recording stopped 8:53:10 ACC-PCI Only Patient was given prescriptions, or instructed by Josafat Chisholm MD to start/continue the following medications upon discharge: Plavix 8:53:11 End room use (Document Last) Intervention Summary Intervention Notes Time ActionType Lesion and Equipment Action# Pressure Duration Attributes Used 8:43:13 Discard SABER 5.0 X Balloon 200 X 150 balloon ([id number]) 8:45:17 Inflate Distal SABER 5.0 x 1 14 00:10 balloon Superficial 6 x 150 Femoral, balloon Left ([id number]) 8:48:44 Deploy self Distal SMART 6 X 1 expanding Superficial 40 X 120 stent Femoral, stent Left ([id number]) Device Usage Item Name Manufacture Quantity Catalog Number [employer] Part Current Minim al Lot# / Charge Number Stock Stock Serial# Code GLIDE Terumo 1 CG506 [id number] [id number] 146839 4 CATHETER 5FR STRAIGHT 100cm (CG506) GLIDE WIRE Terumo 1 [id number] 129089 112130 5 ANGLE 260cm (RQ0585) TORQUE [place] 1 TD01 708776 525687 646680 5 DEVICE Scientific PLASTIC .038 ( TD01) CHOICE PT [place] 1 [id number] 237171 415438 053743 5 Extra Scientific Support J 300cm guide wire ([id number]) GLIDE Terumo 1 CG508 154377 81991 714533 4 CATHETER 5FR ANGLED 100cm (CG508) SABER 5.0 X Cardinal 1 [id number] 173676 145024 5 200 X 150 Health balloon ([id number]) SABER 5.0 x Cardinal 1 [id number] 077722 486787 822220 5 6 x 150 Health balloon ([id number]) SMART 6 X Cardinal 1 [id number] 398606 236455 0 [id number] 40 X 120 Health stent ([id number]) EXOSEAL 6Fr Cardinal 1 EX600 241402 [id number] [id number] 10 (EX600) Health Signature Audit Petros Stage Time Signature Unsigned Intra-Procedure 06/30/2017 Diann Holliday 8:58:16 AM RT(R) Signatures Monitor : Diann Holliday RT Signature : Date : Time : [id number] [place] [address]
--- NOTE | ~2017-06-28 | HEMODYNAMI ---
PATIENT:MILAGRO WALKER MEDICAL RECORD: [id number] : 35 LOCATION:[facility] D.[address] [facility]# [id number] ADMISSION DATE: 06/28/17 Generatedon:07/04/201711:01 Patient name: MILAGRO WALKER Patient #: [id number] SSN: [id number] : 1935 Date of study: 07/04/2017 Page: Of Hemodynamic Procedure Report Patient Data Patient Demographics Procedure consent was obtained First Name: MILAGRO Gender: Female Last Name: AARON : 1935 Middle Initial: S Age: 82 year(s) Patient #: [id number] Race: Black SSN: [id number] Additional ID: [id number] Contact details Address: [address] [place] [address] State: [place]: [facility] [place] Zip code: [address] Past Medical History Allergies: No known allergies Admission Admission Data Admission Date: 06/28/2017 Admission Time: 10:34 Room #: D.2114 Lab Results Lab Result Date: 07/04/2017 Lab Result Time: 0:00 Biochemistry Name Units Result Min Max BUN mg/dl 65 --(----)-* 7 18 Creatinine mg/dl 10.7 --(----)-* 0.6 1.3 CBC Name Units Result Min Max Hemoglobin g/dl 10.2 *-(----)-- 13.5 17.5 Procedure Procedure Types Cath Procedure Miscellaneous Procedures Moderate Sedation up to 30 minutes Peripheral Cath Diagnostic Procedure Abd/Extremity Extremities Right Upper Ext. Arteriogram Procedure Description Procedure Date Procedure Date: 07/04/2017 Procedure Start Time: 10:36 Procedure End Time: 11:00 Procedure Staff Name Function Josafat Chisholm MD Performing Physician Anabel Bingham RT Monitor Taryn Cee RT Scrub Liliana Pemberton RN Nurse Demarcus Palencia RN Nurse Procedure Data Cath Procedure Fluoroscopy Diagnostic fluoroscopy Total fluoroscopy Time: 5.2 time: 5.2 min min Diagnostic fluoroscopy Total fluoroscopy dose: 20 dose: 20 mGy mGy Contrast Material Contrast Material Type Amount (ml) Isovue 300 39 Entry Location Entry Primary Successful Side Size Upsize Upsize Entry Closure Succes sful Closure Location (Fr) 1 (Fr) 2 (Fr) Remarks Device Remarks Femoral Right 6 Fr Exoseal artery Short Estimated blood loss: 5 ml Procedure Complications No complications Procedure Medications Medication Administration Route Dosage 0.9% NaCl I.V. Oxygen NC 2 l/min Lidocaine 2% added to field 20 Heparin Flush Bag added to field 2 bags (1000units/500ml NS) Fentanyl I.V. 50 mcg Versed I.V. 1 mg Versed I.V. 1 mg Fentanyl I.V. 50 mcg Heparin Bolus I.V. 4000 units Hemodynamics Rest HGB: 10.2 (g/dl) Heart Rate: 82 (bpm) Snapshots Pre Cath Intra NCS Post Cath Vital Signs Time Heart Resp SPO2 etCO2 NIBP (mmHg) Rhythm Pain Sedation Rate (ipm) (%) (mmHg) Status Level (bpm) 10:11:11 100 16 98 0 134/74(107) NSR 0 (11) 10(A) , No pain 10:15:46 90 19 100 0 138/73(104) NSR 0 (11) 10(A) , No pain 10:20:18 104 15 100 38.3 149/81(118) NSR 0 (11) 10(A) , No pain 10:24:53 93 16 100 16.8 149/82(123) NSR 0 (11) 10(A) , No pain 10:29:27 98 14 100 36.8 150/88(127) NSR 0 (11) 10(A) , No pain 10:33:59 100 14 100 26 146/90(122) NSR 0 (11) 9(A) , No pain 10:38:32 100 16 100 29.1 157/92(125) NSR 0 (11) 9(A) , No pain 10:43:07 97 14 100 29.1 163/87(130) NSR 0 (11) 9(A) , No pain 10:47:43 101 16 100 32.9 156/89(117) NSR 0 (11) 9(A) , No pain 10:52:18 101 16 100 30.6 157/87(130) NSR 0 (11) 10(A) , No pain 10:56:54 100 13 100 28.3 165/88(133) NSR 0 (11) 10(A) , No pain Medications Time Medication Route Dose Verified Delivered Reason Notes Effectiveness by by 10:13:53 0.9% NaCl I.V. kvo Josafat Ford used for ml/hr Phan Pemberton RN procedure 10:14:02 Oxygen NC 2 Josafat Liliana Per physician l/min Phan Pemberton RN 10:14:11 Lidocaine 2% added 20ml Josafat Josafat for local to vial Phan Chisholm MD anesthetic field 10:14:20 Heparin Flush added 2 Josafat Josafat used for Bag to bags Phan Chisholm MD procedure (1000units/500ml field NS) 10:29:49 Fentanyl I.V. 50 Josafat Liliana for sedation mcg Phan Pemberton RN 10:30:00 Versed I.V. 1 mg Josafat Manuelfany for sedation Phan Pemberton RN 10:39:47 Versed I.V. 1 mg Josafat Liliana for sedation Phan Pemberton RN 10:39:55 Heparin Bolus I.V. 4000 Josafat Liliana for verifi ed units Phan Pemberton RN anticoagulation by 10:39:55 Fentanyl I.V. 50 Josafat Liliana for sedation mcg Phan Pemberton RN Procedure Log Time Note 9:54:35 Demarcus Palencia RN sent for patient. Start room use. 9:54:36 Time tracking: Regular hours 9:54:39 Plan of Care:Hemodynamics will remain stable., Cardiac rhythm will remain stable., Comfort level will be maintained., Respiratory function will remain adequate., Patient/ family verbilizes understanding of procedure., Procedure tolerated without complication., Recovers from procedure without complications.. 10:02:48 Patient received from Pre/Post Procedure Room to CCL 1 Alert and oriented. Tansferred to table in Supine position. 10:02:49 Warm blankets applied, and terra hugger turned on for patient comfort. 10:02:50 Correct patient and procedure confirmed by team. 10:02:51 Signed procedure consent form obtained from patient. 10:03:17 PRIOR TO MOVING PT TO PROCEDURE BED. HER LEFT TOENAIL WAS COMPLETELY RIPPED OFF BEFORE MOVING. 10:10:23 Vital chart was started 10:10:27 Rhythm: sinus rhythm 10:10:28 Full Disclosure recording started 10:13:53 0.9% NaCl kvo ml/hr I.V. was administered by Liliana Pemberton RN; used for procedure; 10:14:02 Oxygen 2 l/min NC was administered by Liliana Pemberton RN; Per physician; 10:14:11 Lidocaine 2% 20ml vial added to field was administered by Josafat Chisholm MD; for local anesthetic; 10:14:20 Heparin Flush Bag (1000units/500ml NS) 2 bags added to field was administered by Josafat Chisholm MD; used for procedure; 10:15:17 Baseline sample Acquired. 10:15:28 H&P Date Dictated: 06/28/2017 Within 30 days and on chart.. 10:15:30 Pre-procedure instructions explained to patient. 10:15:30 Pre-op teaching completed and patient verbalized understanding. 10:15:40 Family in patients room. 10:15:42 Patient NPO since Midnight. 10:15:55 Is patient on blood thinner?Yes 10:15:57 ACC The patient was administered the following blood thiners within the last 24 hours: ACCPlavix 10:16:04 If diabetic: On Metformin? No 10:16:06 Patient not . Patient is over age 55. 10:16:08 Previous problem with sedation/anesthesia? No ? 10:16:09 Snore? Yes 10:16:10 Sleep apnea? No 10:16:11 Deviated septum? No 10:16:12 Opens mouth fully? Yes 10:16:13 Sticks out tongue? Yes 10:16:15 Airway obstruction? No ? 10:16:17 Dentures? No ? 10:16:22 Pre procedure: right dorsailis pedis pulse 2+ Normal; easily identifiable; not easily obliterated 10:16:25 Patient pain scale 0/10 ?. 10:19:26 IV patent on arrival in right forearm with 0.9% NaCl at KVO. 10:19:52 Lab Result : BUN 65 mg/dl 10:19:52 Lab Result : Creatinine 10.7 mg/dl 10:19:52 Lab Result : Hemoglobin 10.2 g/dl 10:20:24 Patient allergic to No known allergies 10:20:28 Lab results completed and on chart. 10:20:31 Bilateral groins area was prepped with chlora-prep and draped in sterile fashion 10:20:33 Alarms reviewed by R. N. 10:20:34 Sharps counted by scrub and verified by R.N. 10:20:54 Use device set Femoral Dx 10:20:56 ACIST Syringe (31390) opened to sterile field. 10:20:56 Bag Decanter (2002S) opened to sterile field. 10:20:58 ACIST Hand Control (69288) opened to sterile field. 10:20:59 ACIST Manifold (36879) opened to sterile field. 10:21:00 Tegaderm 4 x 4 (1626W) opened to sterile field. 10:21:11 Medline Cath Pack ([id number]) opened to sterile field. 10:21:27 DIAGNOSTIC WIRE .035 260cm J wire (898732) opened to sterile field. 10:21:30 PERCUTANEOUS ENTRY 19GA needle opened to sterile field. 10:23:44 SHEATH 6FR Prole (IBD460) opened to sterile field. 10:29:07 --------ALL STOP TIME OUT------ 10:29:08 Final Timeout: patient, procedure, and site verified with staff and physician. All members of the team are in agreement. 10:29:09 Bilateral groins site verified by team. 10:29:14 Physical assessment completed. ASA score P 2 - A patient with mild systemic disease as per Josafat Chisholm MD. 10:29:17 Sedation plan: IV Moderate Sedation Medication:Versed, Fentanyl 10:29:49 Fentanyl 50 mcg I.V. was administered by Liliana Pemberton RN; for sedation; 10:30:00 Versed 1 mg I.V. was administered by Liliana Pemberton RN; for sedation; 10:31:46 Zero performed for pressure channel P1 10:35:32 Procedure started. 10:36:24 Local anesthetic to right femoral artery with Lidocaine 2% by Josafat Chisholm MD.INITIAL ACCESS ONLY 10:39:47 Versed 1 mg I.V. was administered by Liliana Pemberton RN; for sedation; 10:39:55 Fentanyl 50 mcg I.V. was administered by Liliana Pemberton RN; for sedation; 10:39:55 Heparin Bolus 4000 units I.V. was administered by Liliana Pemberton RN; for anticoagulation; verified by 10:40:12 WHOLEY 300cm 0.035 wire ([id number]) opened to sterile field. 10:42:49 A 6 Fr Short sheath was inserted into the Right Femoral artery 10:44:11 Right leg runoff performed. 10:44:50 CHOICE PT Extra Support J 300cm guide wire ([id number]) opened to sterile field. 10:44:58 Wire removed. 10:45:30 CHOICE PT ES wire advanced. 10:50:46 The EMERGE OTW 1.5 x 20 stent ([id number]) was advanced and then removed because of failure to cross lesion 10:50:55 Balloon removed over the wire. 10:50:56 Wire removed. 10:51:04 EXOSEAL 6Fr (EX600) opened to sterile field. 10:51:47 Sheath removed intact; hemostasis achieved with Exoseal to the Right Femoral artery. 10:51:51 Procedure ended.(Physican Out) 10:52:26 Fluoroscopy time 05.20 minutes. 10:52:29 Flurop Dose total: 20 10:52:29 Fluoroscopy dose: 20 mGy 10:52:36 Contrast amount:Isovue 300 39ml. 10:52:52 Post-op/insertion site Right Femoral artery dressed using a 4 x 4 and Tegaderm. 10:52:58 Post right femoral artery:stable, soft, clean and dry 10:53:03 Post procedure: right dorsailis pedis pulse 2+ Normal; easily identifiable; not easily obliterated. 10:53:06 Post-procedure physical assessment completed. ASA score P 2 - A patient with mild systemic disease as per Josafat Chisholm MD. 10:53:10 Post procedure rhythm: unchanged. 10:53:13 Estimated blood loss: 5 ml 10:53:15 Post procedure instruction explained to patient.Patient verbalizes understanding. 10:53:15 Patient needs reinforcement of post procedure teaching. 10:55:04 Procedure type changed to Cath procedure, Miscellaneous Procedures, Moderate Sedation up to 30 minutes, Peripheral Cath Diagnostic Procedure, Abd/Extremity, Extremities, Right Upper Ext. Arteriogram 10:57:24 INFLATOR [employer] BasixCompak (BW4873) opened to sterile field. 11:00:22 Procedure and supply charges have been captured, reviewed, submitted and are correct. 11:00:25 Procedure Complication : No complications 11:00:28 Vital chart was stopped 11:00:29 See physician's report for complete and final results. 11:00:30 Report given to PCU. 11:00:34 Patient transfered to PCU with Bed. 11:00:36 Procedure ended. 11:00:36 Full Disclosure recording stopped 11:00:54 End room use (Document Last) Intervention Summary Intervention Notes Time ActionType Lesion and Equipment Action# Pressure Duration Attributes Used 10:50:46 Discard EMERGE OTW Balloon 1.5 x 20 stent ([id number]) Device Usage Item Name Manufacture Quantity Catalog Number Hospital Part Current Min imal Lot# / Charge Number Stock Stock Serial# Code ACIST Acist 1 89817 028420 308791 166903 20 Syringe Medical (75817) Systems Inc Bag Decanter Microtek 1 2002S 858371 39251 779276 5 (2001S) Medical Inc. ACIST Hand Acist 1 17428 991054 738339 053162 5 Control Medical (42180) Systems Inc ACIST Acist 1 83404 781309 829274 403987 5 Manifold Medical (12533) Systems Inc Tegaderm 4 x 3M 1 1626W 447983 976306 348123 5 4 (1626W) Medline Cath Cardinal 1 [id number] 937628 33242 380649 5 [facility] ([id number]) DIAGNOSTIC St Farhad 1 543786 204703 839968 429153 30 WIRE .035 260cm J wire (079570) PERCUTANEOUS Cook Medical 1 B83372 658885 675377 5 ENTRY 19GA needle SHEATH 6FR Terumo 1 UKP372 440847 172398 603320 40 Prole (ZPV968) WHOLEY 300cm Medtronic 1 [id number] 861855 539120 954887 3 0.035 wire ([id number]) CHOICE PT Concord 1 [id number] 399326 5 Extra Scientific Support J 300cm guide wire ([id number]) EMERGE OTW Concord 1 [id number] 558669 172218 5 [id number] 1.5 x 20 Scientific stent ([id number]) EXOSEAL 6Fr Cardinal 1 EX600 292219 311716 214597 10 (EX600) Health INFLATOR [facility] 1 BF8323 788295 198096 004810 15 [facility] BasixCompak (VQ1592) Signature Audit [place] Stage Time Signature Unsigned Intra-Procedure 07/04/2017 Anabel Bingham 11:01:04 AM RT(R) Signatures Monitor : Anabel Bingham Signature : RT Date : Time : [id number] [place] [address]
--- NOTE | ~2017-06-28 | CN ---
PATIENT NAME:MILAGRO WALKER MEDICAL RECORD: [id number] : 35 LOCATION:D. D.2114 ADMIT DATE: 06/28/17 ACCOUNT: [id number] CONSULTING PHYSICIAN: KARLEY LONDONO MD REFERRING PHYSICIAN: AVNI SIBLEY MD DATE OF CONSULTATION: 06/28/2017 DIAGNOSES: 1. Claudication. 2. Peripheral vascular disease. 3. Coronary artery disease. 4. Renal insufficiency. HISTORY OF PRESENT ILLNESS: Mrs. Walker is a patient who does not have a history of peripheral vascular disease, has a history of coronary artery disease. Last cardiac stenting was 2016. She now presents with discoloration of the left foot. This has been going on for approximately 1 month. She as well has swelling and ischemic changes of the right foot; however, left foot is much worse. REVIEW OF SYSTEMS: The patient reports easy bruising but reports no swollen glands. The patient reports no fever, no night sweats, no significant weight gain, no significant weight loss. No significant exercise tolerance. The patient reports no dry eyes, no irritation, no vision change. Patient reports no difficulty hearing and no ear pain. Patient reports no frequent nose bleeds or nose and sinus problems. Patient reports on arm pain on exertion. No shortness of breath while lying down. No history of heart murmur. Patient reports no cough, no wheezing or coughing up blood. Patient reports no abdominal pain, no vomiting. Normal appetite. No diarrhea and not vomiting blood. No nausea and no constipation. Patient reports no incontinence. No difficulty urinating. No hematuria. No increased frequency. Patient reports no muscle aches. No weakness, no arthralgias, no back pain. No swelling of the extremities. Patient reports no abnormal mole, no jaundice, no rashes. Reports no loss of consciousness. No weakness and no numbness. No seizures, dizziness, or headaches. The patient reports no depression, no sleep disturbance, feeling safe in a relationship and no alcohol abuse. Patient reports on fatigue. Reports no runny nose or sinus pressure. No itching, no hives, and no frequent sneezing. PHYSICAL EXAMINATION: GENERAL APPEARANCE: Well-nourished, well-developed, appears stated age. Level of distress, comfortable. PSYCHIATRIC: Mental status, alert, normal affect. Orientation, oriented to time, place and person. EYES: Lids and conjunctiva, noninjected. No discharge, no pallor. ENT: Lips, teeth, gums, normal dentition. Oropharynx, no cyanosis, no pallor. NECK: Carotid arteries, bilateral normal upstroke, no bruits, no thrills. JUGULAR VEINS: No jugular venous pressure or distention. CERVICAL LYMPH NODES: Nontender, nonenlarged. THYROID: Not enlarged. Nontender. No nodules. LUNGS: Respiratory effort, unlabored. CHEST: Normal curvature. No thoracic deformity. No chest wall tenderness. Percussion, resonant. Auscultation, clear. No wheezes, no rales, no rhonchi. CARDIOVASCULAR: Precordial exam, nondisplaced. No heaves or pericardial thrills. Rate and rhythm, regular. Heart sounds, normal S1, normal S2. No S3, CONSULT REPORT [id number] MILAGRO WALKER no gallop, no rub. Systolic murmur, not heard. Diastolic murmur, not heard. EXTREMITIES: No cyanosis, no edema. Peripheral pulses, full and equal in all extremities, except as noted. No bruits appreciated. ABDOMEN: Soft, nondistended. Normal aorta. No bruit. Nontender. No masses. Liver, nontender, no hepatomegaly. Spleen, nontender, no splenomegaly. MUSCULOSKELETAL: No joint tenderness. No joint swelling. No erythema. NEUROLOGICAL: Normal gait, normal strength, normal tone. SKIN: Warm and dry. OVERALL IMPRESSION: No doubt she has hemodynamically significant and critical peripheral vascular disease, this is at this point limb threatening ischemia, we will start heparin drip today. Proceed with aortofemoral runoff in the a.m. TRANSINT:[id number] Voice Confirmation ID: [id number] DOCUMENT ID: [id number] KARLEY LONDONO MD at 1323 CC: [id number] DICTATION DATE: 06/28/17 1243 REPORTING SPECIALIST: 06/28/17 1258 ADM [address] [place] [address]
--- NOTE | ~2017-06-28 | HEMODYNAMI ---
PATIENT:MILAGRO WALKER MEDICAL RECORD: [id number] : 35 [id number] ADMISSION DATE: 06/28/17 Generatedon:06/29/201712:36 Patient name: MILAGRO WALKER Patient #: [id number] SSN: [id number] : 1935 Date of study: 06/29/2017 Page: Of Hemodynamic Procedure Report Patient Data Patient Demographics Procedure consent was obtained First Name: MILAGRO Gender: Female Last Name: AARON : 1935 Middle Initial: S Age: 82 year(s) Patient #: [id number] Race: Black SSN: [id number] Additional ID: [id number] Contact details Address: [address] [place] [address] State: [place] City: [facility] Zip code: [address] Past Medical History Allergies: No known allergies Admission Admission Data Admission Date: 06/28/2017 Admission Time: 10:34 Room #: D.2114 Lab Results Lab Result Date: 06/29/2017 Lab Result Time: 0:00 Biochemistry Name Units Result Min Max BUN mg/dl 30 --(----)-* 7 18 Creatinine mg/dl 5.8 --(----)-* 0.6 1.3 CBC Name Units Result Min Max Hemoglobin g/dl 12 *-(----)-- 13.5 17.5 Procedure Procedure Types Cath Procedure Miscellaneous Procedures Moderate Sedation up to 15 minutes Peripheral Cath Diagnostic Procedure Cath Peripheral Jnjuq-Eafxotx-Kul-Off Procedure Description Procedure Date Procedure Date: 06/29/2017 Procedure Start Time: 12:24 Procedure End Time: 12:35 Procedure Staff Name Function Josafat Chisholm MD Performing Physician Diann Holliday RT Monitor Taryn Cee RT Scrub Demarcus Palencia RN Nurse Procedure Data Cath Procedure Fluoroscopy Diagnostic fluoroscopy Total fluoroscopy Time: 1.3 time: 1.3 min min Diagnostic fluoroscopy Total fluoroscopy dose: 48 dose: 48 mGy mGy Contrast Material Contrast Material Type Amount (ml) Isovue 300 40 Entry Location Entry Primary Successful Side Size Upsize Upsize Entry Closure Succes sful Closure Location (Fr) 1 (Fr) 2 (Fr) Remarks Device Remarks Femoral Right 5 Fr Exoseal artery Estimated blood loss: 5 ml Diagnostic catheters Device Type Used For End Catheter Placement DIAGNOSTIC UF 5Fr Multi-vessel catheter ([id number]) Angiography Procedure Complications No complications Procedure Medications Medication Administration Route Dosage 0.9% NaCl I.V. 100 ml/hr Oxygen NC 2 l/min Heparin Flush Bag added to field 2 bags (1000units/500ml NS) Lidocaine 2% added to field 20 Versed I.V. 1 mg Fentanyl I.V. 50 mcg Hemodynamics Rest HGB: 12 (g/dl) Heart Rate: 71 (bpm) Snapshots Pre Cath Intra NCS Post Cath Vital Signs Time Heart Resp SPO2 etCO2 NIBP (mmHg) Rhythm Pain Sedation Rate (ipm) (%) (mmHg) Status Level (bpm) 12:12:30 75 14 100 37.1 141/80(113) NSR 0 (11) 10(A) , No pain 12:17:39 88 15 100 23 173/86(114) NSR 0 (11) 10(A) , No pain 12:22:03 84 15 100 25.9 159/79(114) NSR 0 (11) 10(A) , No pain 12:26:23 81 20 100 34.8 162/76(117) NSR 0 (11) 10(A) , No pain 12:31:53 87 12 100 32.6 156/79(114) NSR 0 (11) 9(A) , No pain Medications Time Medication Route Dose Verified Delivered Reason Notes Effe ctiveness by by 12:20:09 0.9% NaCl I.V. 100 Alonso Alonso Per ml/hr Te Tiwari physician RN RN 12:20:33 Oxygen NC 2 Alonso Alonso Per l/min Te Tiwari physician RN RN 12:20:43 Heparin Flush added 2 Alonso Alonso used for Bag to bags Te Tiwari procedure (1000units/500ml field RN RN NS) 12:20:55 Lidocaine 2% added 20ml Alonso Alonso for local to vial Lorigan Lorigan anesthetic field RN RN 12:26:13 Versed I.V. 1 mg Alonso Alonso for Lorigan Lorigan sedation RN RN 12:26:23 Fentanyl I.V. 50 Alonso Alonso for mcg Lorigan Lorigan sedation RN mounter brass wind instruments Log Time Note 11:58:19 Demarcus Palenica RN sent for patient. Start room use. 11:58:20 Time tracking: Regular hours 11:58:24 Plan of Care:Hemodynamics will remain stable., Cardiac rhythm will remain stable., Comfort level will be maintained., Respiratory function will remain adequate., Patient/ family verbilizes understanding of procedure., Procedure tolerated without complication., Recovers from procedure without complications.. 12:02:25 Lab Result : Hemoglobin 12 g/dl 12:02:25 Lab Result : Creatinine 5.8 mg/dl 12:02:25 Lab Result : BUN 30 mg/dl 12:04:34 Patient received from Med II to CCL 2 Alert and oriented. Tansferred to table in Supine position. 12:04:35 Warm blankets applied, and terra hugger turned on for patient comfort. 12:04:35 Correct patient and procedure confirmed by team. 12:04:40 Signed procedure consent form obtained from patient. 12:04:41 ECG and BP/O2 sat monitors applied to patient. 12:04:41 Vital chart was started 12:09:12 Vital chart was stopped 12:11:25 Vital chart was started 12:17:16 Baseline sample Acquired. 12:17:22 Rhythm: sinus rhythm 12:17:23 Full Disclosure recording started 12:17:26 H&P Date Dictated: 06/29/2017 New H&P dictated by physician.. 12:17:28 Pre-procedure instructions explained to patient. 12:17:29 Pre-op teaching completed and patient verbalized understanding. 12:17:35 Family in patients room. 12:17:37 Patient NPO since Midnight. 12:17:40 Is the patient allergic to Iodine/contrast media? No. 12:17:41 Was the patient premedicated? No 12:18:55 Is patient on blood thinner?Yes 12:18:58 ACC The patient was administered the following blood thiners within the last 24 hours: ACCPlavix 12:19:05 Patient diabetic? No. 12:19:07 Previous problem with sedation/anesthesia? No ? 12:19:12 Snore? Yes 12:19:13 Sleep apnea? No 12:19:15 Deviated septum? No 12:19:16 Opens mouth fully? Yes 12:19:16 Sticks out tongue? Yes 12:19:18 Airway obstruction? No ? 12:19:21 Dentures? No ? 12:19:25 Pre procedure: right dorsailis pedis pulse 1+ Palpable, but thready & weak; easily obliterated 12:19:26 Pre procedure: left dorsailis pedis pulse 1+ Palpable, but thready & weak; easily obliterated 12:19:29 Patient pain scale 0/10 ?. 12:19:36 IV patent on arrival in right forearm with 0.9% NaCl at [facility]. 12:19:39 Lab results completed and on chart. 12:19:58 Bilateral groins area was prepped with chlora-prep and draped in sterile fashion 12:19:59 Alarms reviewed by R. N. 12:19:59 Sharps counted by scrub and verified by R.N. 12:20:09 0.9% NaCl 100 ml/hr I.V. was administered by Alonso Tiwari RN; Per physician; 12:20:10 Physician arrived 12:20:11 --------ALL STOP TIME OUT------ 12:20:11 Final Timeout: patient, procedure, and site verified with staff and physician. All members of the team are in agreement. 12:20:19 Bilateral groins site verified by team. 12:20:23 Physical assessment completed. ASA score P 2 - A patient with mild systemic disease as per oJsafat Chisholm MD. 12:20:26 Sedation plan: IV Moderate Sedation Medication:Versed, Fentanyl 12:20:33 Oxygen 2 l/min NC was administered by Alonso Tiwari RN; Per physician; 12:20:40 Use device set Femoral Dx 12:20:42 ACIST Syringe (98673) opened to sterile field. 12:20:42 Bag Decanter (2002S) opened to sterile field. 12:20:43 Heparin Flush Bag (1000units/500ml NS) 2 bags added to field was administered by Alonso Tiwari RN; used for procedure; 12:20:43 Medline Cath Pack ([id number]) opened to sterile field. 12:20:44 SHEATH 5FR Fifield (PIA018) opened to sterile field. 12:20:45 DIAGNOSTIC WIRE .035 260cm J wire (543240) opened to sterile field. 12:20:47 ACIST Hand Control (91811) opened to sterile field. 12:20:47 ACIST Manifold (56204) opened to sterile field. 12:20:49 Tegaderm 4 x 4 (1626W) opened to sterile field. 12::55 Lidocaine 2% 20ml vial added to field was administered by Alonso Tiwari RN; for local anesthetic; 12::55 Procedure started. 12:24:11 Local anesthetic to right femoral artery with Lidocaine 2% by Josafat Chisholm MD.INITIAL ACCESS ONLY 12:24:18 A 5 Fr sheath was inserted into the Right Femoral artery 12:25:45 Zero performed for pressure channel P1 12:26:13 Versed 1 mg I.V. was administered by Alonso Tiwari RN; for sedation; 12::23 Fentanyl 50 mcg I.V. was administered by Alonso Tiwari RN; for sedation; 12:32:37 A DIAGNOSTIC UF 5Fr catheter ([id number]) was advanced over the wire and used for Multi-vessel Angiography. 12:32:53 Abdominal angiogram w/ runoff was performed. 12:33:01 EXOSEAL 5Fr (EX500) opened to sterile field. 12:33:10 Sheath removed intact; hemostasis achieved with Exoseal to the Right Femoral artery. 12:33:11 Procedure ended.(Physican Out) 12:33:38 Fluoroscopy time 01.30 minutes. 12:33:42 Fluoroscopy dose: 48 mGy 12:33:42 Flurop Dose total: 48 12:33:54 Contrast amount:Isovue 300 40ml. 12:34:11 Sharps counted by scrub and verified by R.N. 12:34:12 Insertion/operative site no bleeding no hematoma. 12:34:16 Post-op/insertion site Right Femoral artery dressed using a 4 x 4 and Tegaderm. 12:34:19 Post right femoral artery:stable 12:34:24 Post Procedure Pulses reassessed and unchanged 12:34:27 Post procedure rhythm: unchanged. 12:34:43 Estimated blood loss: 5 ml 12:34:44 Post procedure instruction explained to patient.Patient verbalizes understanding. 12:34:44 Patient needs reinforcement of post procedure teaching. 12:34:58 Procedure type changed to Cath procedure, Miscellaneous Procedures, Moderate Sedation up to 15 minutes, Peripheral Cath Diagnostic Procedure, Cath Peripheral, Tuwjq-Rlgppdw-Krv-Off 12:34:59 Procedure and supply charges have been captured, reviewed, submitted and are correct. 12:35:03 Procedure Complication : No complications 12:35:05 See physician's report for complete and final results. 12:35:[address] [facility]. 12:35:[address] [facility] with Stretcher. 12:35:24 Procedure ended. 12:35:24 Full Disclosure recording stopped 12:35:28 End room use (Document Last) 12:36:15 Vital chart was stopped Device Usage Item Name Manufacture Quantity Catalog Hospital Part Current Minimal L ot# / Number Charge Number Stock Stock Serial# Code ACIST Acist 1 88987 965392 597848 001979 20 Syringe Medical (42869) Systems Inc Bag Microtek 1 2001S 043257 92120 560090 5 Decanter Medical Inc. () Medline Cardinal 1 [id number] 310432 25405 272902 5 Cath Pack Health ([id number]) SHEATH 5FR Terumo 1 [id number] 635172 363725 349435 40 Fifield (YEX871) DIAGNOSTIC St Farhad 1 450069 452358 791826 035698 30 WIRE .035 260cm J wire (954703) ACIST Hand Acist 1 88110 208170 894483 235673 5 Control Medical (51499) Systems Inc ACIST Acist 1 15618 810832 994495 260283 5 Manifold Medical (29368) Systems Inc Tegaderm 4 3M 1 1626W 899791 900352 822770 5 x 4 (1626W) DIAGNOSTIC Cardinal 1 [id number] 986999 035752 362313 10 UF 5Fr Health catheter (970405M3) EXOSEAL 5Fr Cardinal 1 EX500 905885 934480 973648 10 (EX500) Health Signature Audit [place] Stage Time Signature Unsigned Intra-Procedure 06/29/2017 Diann Holliday 12:36:12 PM RT(R) Signatures Monitor : Diann Holliday RT Signature : Date : Time : [address] [place] [address]
--- NOTE | ~2017-06-28 | EC ---
PATIENT:MILAGRO WALKER DATE OF SERVICE: 06/28/17 SEX: F MEDICAL RECORD: [id number] DATE OF : 35 LOCATION:D.M2 D.212 AGE OF PATIENT: 82 ADMISSION DATE: 06/28/17 REFERRING PHYSICIAN: INTERPRETING PHYSICIAN: LORENA MORALES MD ECHOCARDIOGRAM REPORT ECHO CHARGES 4 ECHO COMPLETE CLINICAL DIAGNOSIS: ELEVATED TROPONIN ECHOCARDIOGRAPHIC MEASUREMENTS (adult normal given) AC root (d.<3.7cm) 3.1 cm LV Septum d (<1.2 cm> 1.5 cm Valve Excursion 1.6 cm LV Septum (systole) 2.1 cm Left Atria (s.<4.0cm> 2.2 cm LVPW d(<1.2cm) 1.5 cm RV (d.<2.3cm) 2.2 cm LVPW (sytole) 1.9 cm LV diastole(<5.6CM) 5.3 cm MV E-F(>70mm/sec) cm LV systole 4.2 cm LVOT Diameter 1.7 cm MV exc.(>10mm) cm Est.ejection fraction (50-75%) % Pericardial Effusion N DOPPLER: LVIT cm/sec A 65.0 cm/sec E 34.0 cm/sec LA cm/sec RVSP 34.0 mmHg LVOT 80.0 cm/sec AOP1/2T 598.0m/s Asc. Ao 153 cm/sec RVOT 55.0 cm/sec RA cm/sec PA 88.0 cm/sec AV Gradient Peak 9.3 mmHg AV Mean 5.5 mmHg AV Area 1.4 cm MV Gradient Peak 1.9 mmHg MV Mean 0.62 mmHg MV Area cm COMMENTS: Customs Agent: Josep SMITHOE Hand Tool Filer: Humza Morales TAPE# PACS DATE OF SERVICE: 07/15/2017 PROCEDURE: Transthoracic echocardiogram. FINDINGS: 1. The left ventricle shows regional wall motion abnormalities with inferior lateral severely hypokinetic and akinetic areas and mild to moderate hypokinesis anterior septal. Overall, ejection fraction 20%. The patient has mild left ventricular hypertrophy. Inflow characteristics are consistent with diastolic dysfunction or possibly elevated left ventricular end-diastolic pressures. ECHOCARDIOGRAM REPORT [id number] MILAGRO WALKER 2. The left atrium is normal size and normal function. 3. The aortic valve is sclerotic. There is mild aortic insufficiency, appears to be a trileaflet valve with thickening of the leaflets. 4. Mitral valve has mild mitral regurgitation. 5. Tricuspid valve has mild tricuspid regurgitation. RVSP appears to be 34 mmHg. 6. The right atrium and right ventricle are normal size, normal function. There is no pericardial effusion. There is no obvious pleural effusion. 7. Pulmonic valve is not well visualized. CONCLUSIONS: The patient has evidence of significant ischemic cardiomyopathy with a markedly reduced ejection fraction of approximately 20%. TRANSINT:[id number] Voice Confirmation ID: [id number] DOCUMENT ID: [id number] 07/19/2017 Edited to correct date of service, dm. LORENA MORALES MD at 1252 CC: [id number] DICTATION DATE: 07/16/17 0915 CHEMICAL LIBRARIAN: 07/16/17 1254 ADM IN [facility] [address] [place] [address]
--- NOTE | ~2017-06-28 | OP ---
PATIENT NAME: MILAGRO WALKER MEDICAL RECORD: [id number] :35 LOCATION:D.M2 D.2114 ADMISSION DATE:06/28/17 SURGEON: KARLEY LONDONO MD DATE OF OPERATION: 06/30/2017 PROCEDURES: 1. Stent placement to SFA, left. 2. WAGE AND SALARY ADMINISTRATOR to SFA, left. INDICATION: Claudication, peripheral vascular disease, limb threatening ischemia. PROCEDURE IN DETAIL: After informed consent was obtained and after detailed explanation of risks, benefits as well as alternative therapies, the patient elected to proceed with angiogram and angioplasty. The left femoral area was prepped and draped in normal sterile fashion. Left femoral artery was cannulated via modified Seldinger technique with placement of 6-Georgian antegrade sheath. All catheters exchanged through this sheath. FINDINGS: The left SFA has a 95% stenosis in the distal vessel. This was addressed with a 5.0 balloon followed by a 6 x 40 SMART stent. Result was 0% residual stenosis. OVERALL IMPRESSION: Successful percutaneous transluminal angioplasty stent of the left superficial femoral artery going from 95% initial stenosis to 0% residual. TRANSINT:[id number] Voice Confirmation ID: [id number] DOCUMENT ID: [id number] KARLEY LONDONO MD at 1324 CC: [id number] DICTATION DATE: 06/30/17 0852 DIRECTOR OF CODING: 06/30/17 1125 ADM IN [address] [address]
--- NOTE | ~2017-06-28 | HP ---
PATIENT: MILAGRO WALKER MEDICAL RECORD: [id number] ACCOUNT: [id number] LOCATION:[facility] D.2114 : 35 ADMISSION DATE: 06/28/17 HISTORY AND PHYSICAL EXAMINATION REASON FOR ADMISSION: Cold left foot with severe pain and new lesions. HISTORY OF PRESENT ILLNESS: This is an 82-year-old female that is having severe pain to her foot. She had been seeing a systems checkout mechanic and was treated for gout; however, the pain continued and now she has some new lesions consistent with peripheral artery disease. She is known to have PAD as well as AAA that has been followed by Dr. Chisholm and Dr. Aguilar. REVIEW OF SYSTEMS: Related to pain in her feet, mostly on her left, which is cool to the touch. She is having chronic back pain, but no nausea, vomiting, or emesis. All other review of systems are negative. PAST MEDICAL HISTORY: 1. End-stage renal disease. 2. AAA as well as peripheral artery disease. 3. Gouty arthritis. 4. Hyperparathyroidism. 5. Hyperlipidemia. 6. Hyperkalemia. 7. Peripheral vascular disease. 8. Hyperphosphatemia. ALLERGIES: NKDA. SOCIAL HISTORY: Never smoked. She is retired. She is 82, but had been fairly mobile until her peripheral artery disease. FAMILY HISTORY: Noncontributory for renal failure. PHYSICAL EXAMINATION: VITAL SIGNS: At the end of dialysis, she is 132/72, 60 heart rate, 18 respiratory rate. GENERAL: She is alert and oriented times 3, but is holding her left foot due to the discomfort. HEENT: Clear. Cranial nerves II-XII are intact. NECK: No JVD or thyromegaly. ACCESS: Dialysis access with no sign of infection and a good thrill. LUNGS: Grossly clear. ABDOMEN: Nontender. EXTREMITIES: Both feet are cool. She has a colder left foot than right foot. Edema of the right lower extremity. NEUROLOGIC: No focal neurological deficits. LABORATORY DATA: Stat CMP, CBC, INR, blood cultures, and phosphorous have been sent and consulted Dr. Chisholm. ASSESSMENT AND PLAN: 1. End-stage renal disease. We will continue her dialysis prescription. 2. Anemia of CKD. We will check her hematocrit. 3. Hyperphosphatemia. Her phosphorus has been elevated and is not helping with HISTORY AND PHYSICAL [id number] MILAGRO WALKER her peripheral vascular disease. 4. AAA. Had been followed by Dr. 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 PLAN: 1. Please see orders. 2. Appreciate consultants. 3. Blood cultures. 4. Uric acid. TRANSINT:[id number] Voice Confirmation ID: [id number] DOCUMENT ID: [id number] ANGUS BEST MD at 0652 CC: [id number] DICTATION DATE: 06/28/17 1000 MOLD CAPPER: 06/28/17 1252 ADM IN [facility] [address] [place] [address]
--- NOTE | ~2017-06-28 | OP ---
PATIENT NAME: MILAGRO WALKER MEDICAL RECORD: [id number] :35 LOCATION:D.M2 D.2114 ADMISSION DATE:06/28/17 SURGEON: KARLEY LONDONO MD DATE OF OPERATION: 07/04/2017 PROCEDURES: 1. Failed GROCERY SHOPPER stent right lower extremity due to inability to cross the lesion with a wire. 2. Unilateral extremity angiography. PROCEDURE IN DETAIL: After informed consent was obtained and after detailed explanation of risks, benefits as well as alternative therapies, the patient elected to proceed with angiogram and attempted angioplasty. The right femoral area was prepped and draped in normal sterile fashion. The right femoral artery was cannulated via modified Seldinger technique with placement of 6-Uzbek antegrade sheath. All catheters exchanged through this sheath. FINDINGS: The distal SFA has a chronic total occlusion and is heavily calcified. No wire would cross this total occlusion. OVERALL IMPRESSION: Unsuccessful GROCERY SHOPPER stent of the right SFA due to chronic total occlusion, inability to cross with wire. TRANSINT:[id number] Voice Confirmation ID: [id number] DOCUMENT ID: [id number] KARLEY LONDONO MD at 1324 CC: AVNI SIBLEY MD [id number] DICTATION DATE: 07/04/17 1100 INTEGRATED PROGRAM TEACHER: 07/04/17 1215 ADM IN [place] [id number] [place] [id number]
--- NOTE | ~2017-06-28 | HEMODYNAMI ---
PATIENT:MILAGRO WALKER MEDICAL RECORD: [id number] : 35 LOCATION:[facility] D.2301 ADMISSION DATE: 06/28/17 Generatedon:07/14/201716:33 Patient name: MILAGRO WALKER Patient #: [id number] SSN: [id number] : 1935 Date of study: 07/14/2017 Page: Of Hemodynamic Procedure Report Patient Data Patient Demographics Procedure consent was obtained First Name: MILAGRO Gender: Female Last Name: AARON : 1935 Middle Initial: S Age: 82 year(s) Patient #: [id number] Race: Black SSN: [id number] Additional ID: [id number] Contact details Address: [address] [place] [address] State: [place] [facility] [place] code: [address] Past Medical History Allergies: No known allergies Admission Admission Data Admission Date: 06/28/2017 Admission Time: 10:34 Room #: D.2301 Procedure Procedure Types Cath Procedure Peripheral Cath Diagnostic Procedure Miscellaneous Procedure Description Procedure Date Procedure Date: 07/14/2017 Procedure Start Time: 15:55 Procedure Staff Name Function Aren Bravo MD Performing Physician Jarad Lozano RT Monitor Lindsey Smyth RT Scrub Jose Regalado RN Nurse Procedure Data Cath Procedure Fluoroscopy Diagnostic fluoroscopy Total fluoroscopy Time: 4.7 time: 4.7 min min Diagnostic fluoroscopy Total fluoroscopy dose: 18 dose: 18 mGy mGy Contrast Material Contrast Material Type Amount (ml) Isovue 300 5 Diagnostic catheters Device Type Used For End Catheter Placement Merit Impress KA 2 5Fr 40CM catheter ([id number]) Hemodynamics Rest Heart Rate: 62 (bpm) Snapshots Pre Cath Intra NCS Post Cath Vital Signs Time Heart Resp etCO2 NIBP (mmHg) Rhythm Pain Sedation Rate (ipm) (mmHg) Status Level (bpm) 15:47:11 67 17 0 Measuring NSR 0 (11) 10(A) , No pain 15:47:54 73 8 0 123/60(103) NSR 0 (11) 10(A) , No pain 15:52:02 62 19 0 128/65(111) NSR 0 (11) 10(A) , No pain 15:56:10 80 29 0 123/67(106) NSR 0 (11) 10(A) , No pain 16:00:18 59 59 0 129/61(112) NSR 0 (11) 10(A) , No pain 16:04:24 78 20 0 125/70(110) NSR 0 (11) 10(A) , No pain 16:08:27 64 11 0 128/71(94) NSR 0 (11) 10(A) , No pain 16:12:37 61 10 0 129/58(115) NSR 0 (11) 10(A) , No pain 16:16:47 65 11 0 128/61(103) NSR 0 (11) 10(A) , No pain 16:20:53 67 12 0 133/74(110) NSR 0 (11) 10(A) , No pain 16:25:03 64 11 0 144/63(110) NSR 0 (11) 10(A) , No pain 16:29:19 59 58 0 125/59(106) NSR 0 (11) 10(A) , No pain Procedure Log Time Note 15:45:07 Time tracking: Regular hours 15:45:14 Plan of Care:Hemodynamics will remain stable., Cardiac rhythm will remain stable., Comfort level will be maintained., Respiratory function will remain adequate., Patient/ family verbilizes understanding of procedure., Procedure tolerated without complication., Recovers from procedure without complications.. 15:45:17 Correct patient and procedure confirmed by team. 15:45:19 Signed procedure consent form obtained from guardian. 15:45:21 ECG and BP/O2 sat monitors applied to patient. 15:45:22 Vital chart was started 15:45:23 Baseline sample Acquired. 15:45:24 Full Disclosure recording started 15:45:25 - 15:45:30 H&P Date Dictated: 07/14/2017 Within 30 days and on chart.. 15:45:34 Family in waiting room. 15:47:15 IV patent on arrival in right wrist with D20 %NaCl at O. 15:47:45 Right chest area was prepped with chlora-prep and draped in sterile fashion 15:53:02 Use device set IR Diagnostic 15:53:03 Bag Decanter (2002S) opened to sterile field. 15:53:04 Sterile Angiographic Pack opened to sterile field. 15:55:22 Physician arrived 15:55:29 --------ALL STOP TIME OUT------ 15:55:30 Final Timeout: patient, procedure, and site verified with staff and physician. All members of the team are in agreement. 15:55:40 Sedation plan: IV Moderate Sedation Medication:Lidocaine 15:55:49 Procedure started. 16:01:46 GLIDE WIRE ANGLE 180cm ([id number]) opened to sterile field. 16:03:04 NITINOL .018 80cm wire ([id number]) opened to sterile field. 16:10:38 A Team Everest KA 2 5Fr 40CM catheter ([id number]) was advanced over the wire and used for . 16:10:42 DOC .035 wire ([id number]) opened to sterile field. 16:23:39 Procedure ended.(Physican Out) 16:24:29 Fluoroscopy time 04.70 minutes. 16:24:33 Fluoroscopy dose: 18 mGy 16:24:33 Flurop Dose total: 18 16:29:13 Sharps counted by scrub and verified by R.N. 16:29:21 Contrast amount:Isovue 300 5ml. 16:29:49 Insertion/operative site no bleeding no hematoma. 16:30:16 Post-op/insertion site Right Chest area dressed using a bio patch and opsite 16:31:35 Post Chest area:stable 16:31:50 Post procedure instruction explained to patient.Patient verbalizes understanding. 16:31:51 Procedure and supply charges have been captured, reviewed, submitted an d are correct. 16:33:21 Report given to ICU. 16:33:26 Patient transfered to ICU with Bed. 16:33:48 Vital chart was stopped Device Usage Item Name Manufacture Quantity Catalog Hospital Part Current Minimal Lot# / Number Charge Number Stock Stock Serial# Code Bag Decanter Microtek 1 [id number] 5 () [employer] Sterile Cardinal 1 [id number] [id number] 5 Angiographic Health Pack GLIDE WIRE Terumo 1 [id number] [id number] [id number] [id number] 5 ANGLE 180cm ([id number]) NITINOL .018 Ev3 1 [id number] 362312 [id number] 5 [id number] 80cm wire ([id number]) Merit Merit 1 [id number] 122515 5 Impress KA 2 Medical 5Fr 40CM catheter ([id number]) DOC .035 [employer] 1 [id number] 455062 [id number] 5 [id number] wire ([id number]) Signature Audit [place] Stage Time Signature Unsigned Intra-Procedure 07/14/2017 Jarad 4:33:46 PM Marta RT (R) (CV) Signatures Monitor : Jarad Signature : Marta RT Date : Time : [address] [id number]
[2017-06-28 11:40] VITALS: BP 100/63; BMI 17.0
[2017-06-28 12:15] VITALS: BP 100/63
[2017-06-28 13:51] LABS: BASOPHILS 0.4 % (0-2); HEMOGLOBIN 12.8 g/dL (12-16); IMMATURE GRANULOCYTES 0.2 % (0-5); MCH 29.2 pg (26.0-34.0); MCV 91.3 fL (80.0-100.0); MEAN PLATELET VOLUME 9.6 fL (7.4-10.4); MONOCYTES 7.4 % (2-11); RBC 4.38 10x6/uL (4.00-5.40); WBC 5.6 10x3/uL (4.8-10.8)
[2017-06-28 13:52] LABS: PLATELET COUNT 168 10x3/uL (130-400)
[2017-06-28 14:07] LABS: APTT 36.4 SECONDS (22.8-39.4); INR 1.01 (0.85-1.17); PROTIME 12.9 SECONDS (11.6-15.0)
[2017-06-28 14:15] LABS: ALBUMIN 3.3 g/dL (3.4-5.0); ANION GAP 12.6 mmol/L (8-16); BILIRUBIN - TOTAL 0.51 mg/dL (0.2-1.3); CALCIUM 10.2 mg/dL (8.5-10.1); CARBON DIOXIDE 30.3 mmol/L (21.0-32.0); PHOSPHOROUS 4.6 mg/dL (2.5-4.9); POTASSIUM - SERUM 3.9 mmol/L (3.5-5.1); PROTEIN - SERUM 7.7 g/dL (6.4-8.2)
[2017-06-28 15:06] VITALS: BP 118/54
[2017-06-28 19:00] VITALS: BP 112/46
[2017-06-29 04:00] VITALS: BP 117/60
[2017-06-29 07:50] LABS: HEMATOCRIT 37.6 % (36.0-48.0); MCH 29.1 pg (26.0-34.0); MCHC 31.9 g/dL (31.0-37.0); MCV 91.3 fL (80.0-100.0); MEAN PLATELET VOLUME 9.6 fL (7.4-10.4); NEUTROPHILS 76.7 % (40-80); PLATELET COUNT 172 10x3/uL (130-400); RBC 4.12 10x6/uL (4.00-5.40); RDW 18.9 % (11.5-14.5); WBC 4.5 10x3/uL (4.8-10.8)
[2017-06-29 07:54] LABS: ANION GAP 15.2 mmol/L (8-16); CALCIUM 10.3 mg/dL (8.5-10.1); CARBON DIOXIDE 28.9 mmol/L (21.0-32.0); POTASSIUM - SERUM 4.1 mmol/L (3.5-5.1)
[2017-06-29 07:55] LABS: CREATININE - SERUM 5.8 mg/dL (0.6-1.3)
[2017-06-29 08:08] VITALS: BP 164/81
[2017-06-29 11:37] VITALS: BP 162/73
[2017-06-29 13:06] VITALS: BMI 16.8
[2017-06-29 21:52] VITALS: BP 114/51
[2017-06-30 06:17] VITALS: BP 105/54
[2017-06-30 06:40] LABS: BASOPHILS 0.5 % (0-2); EOSINOPHILS 2.3 % (0-7); HEMATOCRIT 37.1 % (36.0-48.0); HEMOGLOBIN 11.7 g/dL (12-16); IMMATURE GRANULOCYTES 0.2 % (0-5); LYMPHOCYTES 11.7 % (15-50); MCHC 31.5 g/dL (31.0-37.0); MCV 92.1 fL (80.0-100.0); MEAN PLATELET VOLUME 9.8 fL (7.4-10.4); MONOCYTES 8.8 % (2-11); NEUTROPHILS 76.5 % (40-80); RBC 4.03 10x6/uL (4.00-5.40); RDW 18.3 % (11.5-14.5)
[2017-06-30 06:42] LABS: PLATELET COUNT 219 10x3/uL (130-400)
[2017-06-30 06:43] LABS: ANION GAP 17.2 mmol/L (8-16); CALCIUM 10.2 mg/dL (8.5-10.1); CARBON DIOXIDE 27.2 mmol/L (21.0-32.0); POTASSIUM - SERUM 4.4 mmol/L (3.5-5.1)
[2017-06-30 06:47] LABS: CREATININE - SERUM 7.3 mg/dL (0.6-1.3); PHOSPHOROUS 7.3 mg/dL (2.5-4.9)
[2017-06-30 15:52] VITALS: BP 130/62
[2017-06-30 20:30] VITALS: BP 121/67
[2017-07-01] VITALS: BP 118/58
[2017-07-01 06:07] LABS: BASOPHILS 0.2 % (0-2); EOSINOPHILS 1.6 % (0-7); HEMATOCRIT 33.6 % (36.0-48.0); HEMOGLOBIN 10.7 g/dL (12-16); IMMATURE GRANULOCYTES 0.2 % (0-5); LYMPHOCYTES 11.7 % (15-50); MCH 28.8 pg (26.0-34.0); MCHC 31.8 g/dL (31.0-37.0); MCV 90.6 fL (80.0-100.0); MONOCYTES 10.6 % (2-11); NEUTROPHILS 75.7 % (40-80); PLATELET COUNT 230 10x3/uL (130-400); RBC 3.71 10x6/uL (4.00-5.40); WBC 6.3 10x3/uL (4.8-10.8)
[2017-07-01 06:11] LABS: ANION GAP 20.1 mmol/L (8-16); CALCIUM 10.3 mg/dL (8.5-10.1); CARBON DIOXIDE 24.7 mmol/L (21.0-32.0); CREATININE - SERUM 7.5 mg/dL (0.6-1.3); POTASSIUM - SERUM 4.8 mmol/L (3.5-5.1)
[2017-07-01 06:21] VITALS: BP 111/59
[2017-07-01 08:08] VITALS: BP 128/56
[2017-07-01 12:26] VITALS: BP 102/47
[2017-07-01 17:30] VITALS: BP 99/64
[2017-07-01 21:16] VITALS: BP 103/57
[2017-07-02 01:23] VITALS: BP 119/59
[2017-07-02 05:58] VITALS: BP 133/64
[2017-07-02 06:10] LABS: BASOPHILS 0.3 % (0-2); EOSINOPHILS 2.8 % (0-7); HEMATOCRIT 31.2 % (36.0-48.0); IMMATURE GRANULOCYTES 0.3 % (0-5); LYMPHOCYTES 12.2 % (15-50); MCH 28.9 pg (26.0-34.0); MCHC 32.1 g/dL (31.0-37.0); MCV 90.2 fL (80.0-100.0); MEAN PLATELET VOLUME 9.8 fL (7.4-10.4); MONOCYTES 8.8 % (2-11); NEUTROPHILS 75.6 % (40-80); PLATELET COUNT 245 10x3/uL (130-400); RBC 3.46 10x6/uL (4.00-5.40); WBC 6.8 10x3/uL (4.8-10.8)
[2017-07-02 06:41] LABS: ANION GAP 20.5 mmol/L (8-16); CALCIUM 9.1 mg/dL (8.5-10.1); CARBON DIOXIDE 25.1 mmol/L (21.0-32.0); CREATININE - SERUM 9.2 mg/dL (0.6-1.3); POTASSIUM - SERUM 4.6 mmol/L (3.5-5.1)
[2017-07-02 08:12] VITALS: BP 136/60
[2017-07-02 11:47] VITALS: BP 116/51
[2017-07-02 16:19] VITALS: BP 124/55
[2017-07-02 21:39] VITALS: BP 74/44
[2017-07-03 00:54] VITALS: BP 73/48
[2017-07-03 04:26] LABS: BASOPHILS 0.3 % (0-2); HEMATOCRIT 32.1 % (36.0-48.0); HEMOGLOBIN 10.2 g/dL (12-16); IMMATURE GRANULOCYTES 0.1 % (0-5); LYMPHOCYTES 9.1 % (15-50); MCH 28.8 pg (26.0-34.0); MCHC 31.8 g/dL (31.0-37.0); MCV 90.7 fL (80.0-100.0); MEAN PLATELET VOLUME 9.5 fL (7.4-10.4); MONOCYTES 8.1 % (2-11); NEUTROPHILS 80.4 % (40-80); PLATELET COUNT 251 10x3/uL (130-400); RBC 3.54 10x6/uL (4.00-5.40); WBC 7.6 10x3/uL (4.8-10.8)
[2017-07-03 04:48] LABS: ANION GAP 19.8 mmol/L (8-16); CALCIUM 8.8 mg/dL (8.5-10.1); CARBON DIOXIDE 25.9 mmol/L (21.0-32.0); CREATININE - SERUM 10.7 mg/dL (0.6-1.3); POTASSIUM - SERUM 4.7 mmol/L (3.5-5.1)
[2017-07-03 06:02] VITALS: BP 94/48
[2017-07-03 09:46] VITALS: BP 121/55
[2017-07-03 16:11] LABS: SPE - A/G RATIO 1.1 (0.7-1.7); SPE - ALBUMIN 3.6 g/dL (2.9-4.4); SPE - ALPHA-1 GLOBULIN 0.3 g/dL (0.0-0.4); SPE - ALPHA-2 GLOBULIN 0.8 g/dL (0.4-1.0); SPE - BETA GLOBULIN 0.9 g/dL (0.7-1.3); SPE - GAMMA GLOBULIN 1.4 g/dL (0.4-1.8); SPE - M-SPIKE Not Observed g/dL (Not Observed)
[2017-07-03 19:00] VITALS: BP 106/46
[2017-07-04] VITALS: BP 104/64
[2017-07-04 08:36] VITALS: BP 129/73
[2017-07-04 09:33] VITALS: BP 129/73
[2017-07-04 17:50] VITALS: BP 132/64
[2017-07-04 22:14] VITALS: BP 113/59
[2017-07-05 01:10] VITALS: BP 118/65
[2017-07-05 05:07] VITALS: BP 130/67
[2017-07-05 06:19] LABS: BASOPHILS 0.2 % (0-2); EOSINOPHILS 1.3 % (0-7); HEMATOCRIT 31.7 % (36.0-48.0); IMMATURE GRANULOCYTES 0.4 % (0-5); MCH 28.7 pg (26.0-34.0); MCHC 31.5 g/dL (31.0-37.0); MCV 91.1 fL (80.0-100.0); MEAN PLATELET VOLUME 9.1 fL (7.4-10.4); MONOCYTES 9.4 % (2-11); NEUTROPHILS 79.7 % (40-80); PLATELET COUNT 292 10x3/uL (130-400); RBC 3.48 10x6/uL (4.00-5.40); WBC 8.4 10x3/uL (4.8-10.8)
[2017-07-05 07:23] LABS: ANION GAP 17.6 mmol/L (8-16); CALCIUM 9.4 mg/dL (8.5-10.1); CARBON DIOXIDE 27.4 mmol/L (21.0-32.0); CREATININE - SERUM 8.2 mg/dL (0.6-1.3); PHOSPHOROUS 7.6 mg/dL (2.5-4.9)
[2017-07-05 08:41] VITALS: BP 138/65
[2017-07-05 12:30] VITALS: BP 110/66
[2017-07-05 17:27] VITALS: BP 120/63
[2017-07-05 21:59] VITALS: BP 95/57
[2017-07-06 01:46] VITALS: BP 100/55
[2017-07-06 04:55] LABS: BASOPHILS 0.2 % (0-2); EOSINOPHILS 1.1 % (0-7); HEMATOCRIT 34.1 % (36.0-48.0); HEMOGLOBIN 10.7 g/dL (12-16); IMMATURE GRANULOCYTES 0.2 % (0-5); LYMPHOCYTES 7.3 % (15-50); MCH 29.2 pg (26.0-34.0); MCHC 31.4 g/dL (31.0-37.0); MCV 92.9 fL (80.0-100.0); MEAN PLATELET VOLUME 9.8 fL (7.4-10.4); MONOCYTES 7.7 % (2-11); NEUTROPHILS 83.5 % (40-80); PLATELET COUNT 343 10x3/uL (130-400); RBC 3.67 10x6/uL (4.00-5.40); RDW 18.1 % (11.5-14.5); WBC 10.1 10x3/uL (4.8-10.8)
[2017-07-06 05:21] LABS: ANION GAP 17.1 mmol/L (8-16); CALCIUM 9.7 mg/dL (8.5-10.1); CARBON DIOXIDE 28.4 mmol/L (21.0-32.0); PHOSPHOROUS 5.7 mg/dL (2.5-4.9); POTASSIUM - SERUM 4.5 mmol/L (3.5-5.1)
[2017-07-06 05:24] VITALS: BP 101/53
[2017-07-06 05:30] LABS: CREATININE - SERUM 5.8 mg/dL (0.6-1.3)
[2017-07-06 08:34] VITALS: BP 89/59
[2017-07-06 12:09] VITALS: BP 101/54
[2017-07-06 16:54] VITALS: BP 105/66
[2017-07-06 21:37] VITALS: BP 137/67
[2017-07-07 01:49] VITALS: BP 84/48
[2017-07-07 05:36] VITALS: BP 114/57
[2017-07-07 06:16] LABS: CARBON DIOXIDE 25.8 mmol/L (21.0-32.0); POTASSIUM - SERUM 4.8 mmol/L (3.5-5.1)
[2017-07-07 06:29] LABS: CREATININE - SERUM 7.4 mg/dL (0.6-1.3)
[2017-07-07 07:42] VITALS: BP 120/66
[2017-07-07 17:09] VITALS: BP 99/66
[2017-07-07 21:30] VITALS: BP 115/63
[2017-07-08 06:26] LABS: BASOPHILS 0.1 % (0-2); EOSINOPHILS 0.2 % (0-7); HEMATOCRIT 34.6 % (36.0-48.0); IMMATURE GRANULOCYTES 0.3 % (0-5); LYMPHOCYTES 5.4 % (15-50); MCH 29.3 pg (26.0-34.0); MCHC 31.8 g/dL (31.0-37.0); MCV 92.3 fL (80.0-100.0); MEAN PLATELET VOLUME 9.8 fL (7.4-10.4); MONOCYTES 6.7 % (2-11); NEUTROPHILS 87.3 % (40-80); PLATELET COUNT 365 10x3/uL (130-400); RBC 3.75 10x6/uL (4.00-5.40); RDW 17.6 % (11.5-14.5); WBC 15.7 10x3/uL (4.8-10.8)
[2017-07-08 06:36] VITALS: BP 128/68
[2017-07-08 06:40] LABS: CALCIUM 10.6 mg/dL (8.5-10.1); CARBON DIOXIDE 27.5 mmol/L (21.0-32.0); PHOSPHOROUS 6.1 mg/dL (2.5-4.9); POTASSIUM - SERUM 4.5 mmol/L (3.5-5.1)
[2017-07-08 06:42] LABS: CREATININE - SERUM 5.4 mg/dL (0.6-1.3)
[2017-07-08 09:09] VITALS: BP 131/66
[2017-07-08 12:15] VITALS: BP 143/71
[2017-07-08 15:58] VITALS: BP 128/69
[2017-07-08 20:25] VITALS: BP 110/57
[2017-07-09 01:13] VITALS: BP 92/57
[2017-07-09 04:32] VITALS: BP 102/55
[2017-07-09 07:00] VITALS: BP 99/58
[2017-07-09 12:48] VITALS: BP 119/63
[2017-07-09 16:00] VITALS: BP 114/62
[2017-07-09 21:41] VITALS: BP 120/58
[2017-07-10 01:10] VITALS: BP 139/71
[2017-07-10 04:58] VITALS: BP 126/77
[2017-07-10 06:33] LABS: CALCIUM 9.9 mg/dL (8.5-10.1); CARBON DIOXIDE 24.9 mmol/L (21.0-32.0); POTASSIUM - SERUM 5.9 mmol/L (3.5-5.1)
[2017-07-10 06:47] LABS: BASOPHILS 0.1 % (0-2); EOSINOPHILS 0.3 % (0-7); HEMATOCRIT 32.2 % (36.0-48.0); HEMOGLOBIN 10.3 g/dL (12-16); IMMATURE GRANULOCYTES 1.1 % (0-5); LYMPHOCYTES 4.1 % (15-50); MCH 29.1 pg (26.0-34.0); MEAN PLATELET VOLUME 9.9 fL (7.4-10.4); NEUTROPHILS 87.4 % (40-80); PLATELET COUNT 346 10x3/uL (130-400); RBC 3.54 10x6/uL (4.00-5.40); RDW 17.1 % (11.5-14.5); WBC 15.9 10x3/uL (4.8-10.8)
[2017-07-10 07:45] VITALS: BP 139/74
[2017-07-10 11:37] VITALS: BP 132/72
[2017-07-10 20:00] VITALS: BP 117/61
[2017-07-11 04:00] VITALS: BP 122/68
[2017-07-11 05:04] LABS: BASOPHILS 0.1 % (0-2); EOSINOPHILS 0.2 % (0-7); HEMATOCRIT 33.7 % (36.0-48.0); HEMOGLOBIN 10.7 g/dL (12-16); IMMATURE GRANULOCYTES 1.1 % (0-5); LYMPHOCYTES 2.9 % (15-50); MCH 29.3 pg (26.0-34.0); MCHC 31.8 g/dL (31.0-37.0); MCV 92.3 fL (80.0-100.0); MEAN PLATELET VOLUME 9.6 fL (7.4-10.4); MONOCYTES 6.3 % (2-11); NEUTROPHILS 89.4 % (40-80); PLATELET COUNT 322 10x3/uL (130-400); RBC 3.65 10x6/uL (4.00-5.40); RDW 17.2 % (11.5-14.5); WBC 18.9 10x3/uL (4.8-10.8)
[2017-07-11 05:15] LABS: CALCIUM 10.1 mg/dL (8.5-10.1); CARBON DIOXIDE 28.2 mmol/L (21.0-32.0); CREATININE - SERUM 7.2 mg/dL (0.6-1.3); PHOSPHOROUS 8.1 mg/dL (2.5-4.9); POTASSIUM - SERUM 5.2 mmol/L (3.5-5.1); VANCOMYCIN - RANDOM 14.4 ug/mL (10.0-20.0)
[2017-07-11 09:12] VITALS: BP 108/62
[2017-07-11 12:10] VITALS: BP 110/59
[2017-07-11 15:57] LABS: HEMATOCRIT 58.9 % (36.0-48.0); HEMOGLOBIN 18.8 g/dL (12-16)
[2017-07-11 17:34] VITALS: BP 136/72
[2017-07-11 21:31] VITALS: BP 136/72
[2017-07-12] VITALS (21 sets, daily range): BP systolic 83–144; BP diastolic 47–83
[2017-07-12 05:53] LABS: CALCIUM 10.4 mg/dL (8.5-10.1); CARBON DIOXIDE 23.7 mmol/L (21.0-32.0); VANCOMYCIN - RANDOM 12.4 ug/mL (10.0-20.0)
[2017-07-12 05:54] LABS: ANION GAP 23.3 mmol/L (8-16)
[2017-07-12 05:58] LABS: BASOPHILS 0.1 % (0-2); EOSINOPHILS 0.2 % (0-7); HEMATOCRIT 32.1 % (36.0-48.0); HEMOGLOBIN 10.2 g/dL (12-16); IMMATURE GRANULOCYTES 0.9 % (0-5); LYMPHOCYTES 1.9 % (15-50); MCH 29.3 pg (26.0-34.0); MCHC 31.8 g/dL (31.0-37.0); MCV 92.2 fL (80.0-100.0); MEAN PLATELET VOLUME 9.5 fL (7.4-10.4); MONOCYTES 4.7 % (2-11); NEUTROPHILS 92.2 % (40-80); PLATELET COUNT 299 10x3/uL (130-400); RBC 3.48 10x6/uL (4.00-5.40); RDW 17.4 % (11.5-14.5); WBC 23.4 10x3/uL (4.8-10.8)
[2017-07-12 19:31] LABS: HEMATOCRIT 32.7 % (36.0-48.0); HEMOGLOBIN 10.2 g/dL (12-16)
[2017-07-13] VITALS (25 sets, daily range): BP systolic 95–140; BP diastolic 56–83
[2017-07-13 04:29] LABS: HEMATOCRIT 30.1 % (36.0-48.0); HEMOGLOBIN 9.3 g/dL (12-16); MCH 28.7 pg (26.0-34.0); MCHC 30.9 g/dL (31.0-37.0); MCV 92.9 fL (80.0-100.0); MEAN PLATELET VOLUME 9.6 fL (7.4-10.4); PLATELET COUNT 290 10x3/uL (130-400); RBC 3.24 10x6/uL (4.00-5.40); RDW 17.5 % (11.5-14.5); WBC 22.6 10x3/uL (4.8-10.8)
[2017-07-13 04:42] LABS: ALBUMIN 1.9 g/dL (3.4-5.0); ANION GAP 18.9 mmol/L (8-16); BILIRUBIN - TOTAL 0.47 mg/dL (0.2-1.3); CALCIUM 9.4 mg/dL (8.5-10.1); PROTEIN - SERUM 6.8 g/dL (6.4-8.2); VANCOMYCIN - RANDOM 28.2 ug/mL (10.0-20.0)
[2017-07-13 04:49] LABS: CREATININE - SERUM 5.6 mg/dL (0.6-1.3); POTASSIUM - SERUM 4.9 mmol/L (3.5-5.1)
[2017-07-13 05:10] LABS: LYMPHOCYTES 10 % (15-50); MONOCYTES 3 % (2-11); NEUTROPHILS 80 % (40-80); PLATELET ESTIMATE NORMAL
[2017-07-14] VITALS (25 sets, daily range): BP systolic 80–137; BP diastolic 49–73; Ht 165.1 cm; Wt 59.1 kg
[2017-07-14 04:27] LABS: BASOPHILS 0 % (0-2); EOSINOPHILS 0.5 % (0-7); HEMATOCRIT 28.7 % (36.0-48.0); HEMOGLOBIN 9.1 g/dL (12-16); IMMATURE GRANULOCYTES 1.3 % (0-5); LYMPHOCYTES 2.9 % (15-50); MCH 29.1 pg (26.0-34.0); MCHC 31.7 g/dL (31.0-37.0); MCV 91.7 fL (80.0-100.0); MEAN PLATELET VOLUME 9.1 fL (7.4-10.4); MONOCYTES 5.2 % (2-11); NEUTROPHILS 90.1 % (40-80); PLATELET COUNT 257 10x3/uL (130-400); RBC 3.13 10x6/uL (4.00-5.40); RDW 17.4 % (11.5-14.5); WBC 20.8 10x3/uL (4.8-10.8)
[2017-07-14 04:38] LABS: INR 1.42 (0.85-1.17); PROTIME 16.9 SECONDS (11.6-15.0)
[2017-07-14 04:49] LABS: ALBUMIN 1.8 g/dL (3.4-5.0); ANION GAP 20.2 mmol/L (8-16); BILIRUBIN - TOTAL 0.4 mg/dL (0.2-1.3); CARBON DIOXIDE 26.2 mmol/L (21.0-32.0); CREATININE - SERUM 6.8 mg/dL (0.6-1.3); POTASSIUM - SERUM 4.4 mmol/L (3.5-5.1); PROTEIN - SERUM 6.4 g/dL (6.4-8.2); VANCOMYCIN - RANDOM 25.4 ug/mL (10.0-20.0)
[2017-07-14 09:05] LABS: APPEARANCE CLOUDY (CLEAR); COLOR STRAW (YELLOW)
[2017-07-14 09:06] LABS: BACTERIA MODERATE /hpf (NONE SEEN); BILIRUBIN NEGATIVE (NEGATIVE); EPITHELIAL CELLS >50 /hpf (0-5); GLUCOSE NEGATIVE (NEGATIVE); KETONE NEGATIVE (NEGATIVE); MUCUS <1+ /lpf (NONE SEEN); NITRITE NEGATIVE (NEGATIVE); PROTEIN 2+ mg/dL (NEGATIVE); RED CELLS - URINE 0-5 /hpf (0-5); SPECIFIC GRAVITY 1.015 (1.005-1.020); UROBILINOGEN NORMAL (NORMAL)
[2017-07-15] VITALS (24 sets, daily range): BP systolic 71–126; BP diastolic 48–74
[2017-07-15 04:41] LABS: BASOPHILS 0 % (0-2); EOSINOPHILS 0.2 % (0-7); HEMATOCRIT 33.9 % (36.0-48.0); HEMOGLOBIN 11.1 g/dL (12-16); IMMATURE GRANULOCYTES 1.7 % (0-5); LYMPHOCYTES 2.3 % (15-50); MCH 29.8 pg (26.0-34.0); MCHC 32.7 g/dL (31.0-37.0); MCV 90.9 fL (80.0-100.0); MEAN PLATELET VOLUME 9.8 fL (7.4-10.4); MONOCYTES 4.1 % (2-11); NEUTROPHILS 91.7 % (40-80); PLATELET COUNT 229 10x3/uL (130-400); RBC 3.73 10x6/uL (4.00-5.40); RDW 16.9 % (11.5-14.5); WBC 21.5 10x3/uL (4.8-10.8)
[2017-07-15 04:53] LABS: ALBUMIN 1.8 g/dL (3.4-5.0); ANION GAP 14.3 mmol/L (8-16); BILIRUBIN - TOTAL 0.53 mg/dL (0.2-1.3); CALCIUM 8.9 mg/dL (8.5-10.1); CARBON DIOXIDE 28.9 mmol/L (21.0-32.0); MAGNESIUM - SERUM 2.1 mg/dL (1.8-2.4); PROTEIN - SERUM 6.4 g/dL (6.4-8.2); VANCOMYCIN - RANDOM 18.9 ug/mL (10.0-20.0)
[2017-07-15 04:57] LABS: CREATININE - SERUM 3.7 mg/dL (0.6-1.3); POTASSIUM - SERUM 3.2 mmol/L (3.5-5.1)
[2017-07-16] VITALS (18 sets, daily range): BP systolic 88–125; BP diastolic 48–75
[2017-07-16 04:01] LABS: BASOPHILS 0.1 % (0-2); EOSINOPHILS 0.1 % (0-7); HEMATOCRIT 37.3 % (36.0-48.0); HEMOGLOBIN 12.4 g/dL (12-16); IMMATURE GRANULOCYTES 0.7 % (0-5); LYMPHOCYTES 3.1 % (15-50); MCH 30.5 pg (26.0-34.0); MCHC 33.2 g/dL (31.0-37.0); MCV 91.9 fL (80.0-100.0); MEAN PLATELET VOLUME 9.8 fL (7.4-10.4); MONOCYTES 4.4 % (2-11); NEUTROPHILS 91.6 % (40-80); PLATELET COUNT 225 10x3/uL (130-400); RBC 4.06 10x6/uL (4.00-5.40); RDW 16.8 % (11.5-14.5)
[2017-07-16 04:06] LABS: WBC 15.2 10x3/uL (4.8-10.8)
[2017-07-16 04:14] LABS: ANION GAP 17.1 mmol/L (8-16); CALCIUM 9.7 mg/dL (8.5-10.1); CARBON DIOXIDE 26.5 mmol/L (21.0-32.0); CREATININE - SERUM 5.1 mg/dL (0.6-1.3); POTASSIUM - SERUM 3.6 mmol/L (3.5-5.1)
[2017-07-17] VITALS (13 sets, daily range): BP systolic 77–123; BP diastolic 40–72
[2017-07-17 04:22] LABS: BASOPHILS 0.1 % (0-2); EOSINOPHILS 0 % (0-7); HEMATOCRIT 34.8 % (36.0-48.0); HEMOGLOBIN 11.2 g/dL (12-16); IMMATURE GRANULOCYTES 1.1 % (0-5); LYMPHOCYTES 2.1 % (15-50); MCH 29.5 pg (26.0-34.0); MCHC 32.2 g/dL (31.0-37.0); MCV 91.6 fL (80.0-100.0); MEAN PLATELET VOLUME 9.8 fL (7.4-10.4); MONOCYTES 3.9 % (2-11); NEUTROPHILS 92.8 % (40-80); PLATELET COUNT 242 10x3/uL (130-400); RDW 16.7 % (11.5-14.5)
[2017-07-17 04:25] LABS: WBC 19.2 10x3/uL (4.8-10.8)
[2017-07-17 05:06] LABS: ALBUMIN 1.7 g/dL (3.4-5.0); BILIRUBIN - DIRECT 0.13 mg/dL (0.00-0.30); BILIRUBIN - INDIRECT 0.3 mg/dL (0.00-1.00); BILIRUBIN - TOTAL 0.43 mg/dL (0.2-1.3); CALCIUM 8.7 mg/dL (8.5-10.1); CARBON DIOXIDE 24.5 mmol/L (21.0-32.0); PROTEIN - SERUM 6.1 g/dL (6.4-8.2)
[2017-07-17 05:42] LABS: ANION GAP 18.1 mmol/L (8-16); POTASSIUM - SERUM 3.6 mmol/L (3.5-5.1)
[2017-07-18 04:35] LABS: BASOPHILS 0.1 % (0-2); EOSINOPHILS 0.1 % (0-7); HEMATOCRIT 33.7 % (36.0-48.0); HEMOGLOBIN 10.9 g/dL (12-16); IMMATURE GRANULOCYTES 1.6 % (0-5); MCH 29.6 pg (26.0-34.0); MCHC 32.3 g/dL (31.0-37.0); MCV 91.6 fL (80.0-100.0); MEAN PLATELET VOLUME 9.8 fL (7.4-10.4); MONOCYTES 3.7 % (2-11); NEUTROPHILS 92.5 % (40-80); PLATELET COUNT 244 10x3/uL (130-400); RBC 3.68 10x6/uL (4.00-5.40); RDW 16.6 % (11.5-14.5); WBC 15.5 10x3/uL (4.8-10.8)
[2017-07-18 04:58] LABS: ALBUMIN 1.7 g/dL (3.4-5.0); ANION GAP 13.6 mmol/L (8-16); BILIRUBIN - DIRECT 0.1 mg/dL (0.00-0.30); BILIRUBIN - INDIRECT 0.3 mg/dL (0.00-1.00); BILIRUBIN - TOTAL 0.4 mg/dL (0.2-1.3); CALCIUM 7.9 mg/dL (8.5-10.1); CARBON DIOXIDE 28.1 mmol/L (21.0-32.0); CREATININE - SERUM 4.8 mg/dL (0.6-1.3); PHOSPHOROUS 4.3 mg/dL (2.5-4.9); VANCOMYCIN - RANDOM 12.6 ug/mL (10.0-20.0)
[2017-07-18 05:27] LABS: POTASSIUM - SERUM 2.7 mmol/L (3.5-5.1)
[2017-07-18 05:39] VITALS: BP 105/49
[2017-07-18 08:02] VITALS: BP 127/58
[2017-07-18 11:29] VITALS: BP 105/53
[2017-07-18 15:11] VITALS: BP 105/63
[2017-07-18 20:00] VITALS: BP 122/50
[2017-07-19] VITALS: BP 107/49
[2017-07-19 04:00] VITALS: BP 108/53
[2017-07-19 05:01] LABS: BASOPHILS 0.1 % (0-2); EOSINOPHILS 0.1 % (0-7); HEMATOCRIT 32.1 % (36.0-48.0); HEMOGLOBIN 10.5 g/dL (12-16); IMMATURE GRANULOCYTES 1.8 % (0-5); LYMPHOCYTES 2.3 % (15-50); MCH 29.6 pg (26.0-34.0); MCHC 32.7 g/dL (31.0-37.0); MCV 90.4 fL (80.0-100.0); MEAN PLATELET VOLUME 9.5 fL (7.4-10.4); MONOCYTES 4.4 % (2-11); NEUTROPHILS 91.3 % (40-80); PLATELET COUNT 217 10x3/uL (130-400); RBC 3.55 10x6/uL (4.00-5.40); RDW 16.7 % (11.5-14.5); WBC 15.8 10x3/uL (4.8-10.8)
[2017-07-19 05:30] LABS: ANION GAP 15.5 mmol/L (8-16); CALCIUM 8.3 mg/dL (8.5-10.1); CARBON DIOXIDE 23.6 mmol/L (21.0-32.0); CREATININE - SERUM 5.8 mg/dL (0.6-1.3); POTASSIUM - SERUM 3.1 mmol/L (3.5-5.1)
[2017-07-19 11:01] VITALS: BP 129/41
[2017-07-19 13:41] VITALS: BP 129/66
[2017-07-19 19:00] VITALS: BP 87/45
[2017-07-20 04:00] VITALS: BP 133/57
[2017-07-20 05:09] LABS: BASOPHILS 0.1 % (0-2); EOSINOPHILS 0.9 % (0-7); HEMATOCRIT 33.2 % (36.0-48.0); HEMOGLOBIN 10.9 g/dL (12-16); IMMATURE GRANULOCYTES 2.2 % (0-5); LYMPHOCYTES 6.1 % (15-50); MCH 29.6 pg (26.0-34.0); MCHC 32.8 g/dL (31.0-37.0); MCV 90.2 fL (80.0-100.0); MEAN PLATELET VOLUME 9.2 fL (7.4-10.4); MONOCYTES 7.6 % (2-11); NEUTROPHILS 83.1 % (40-80); PLATELET COUNT 253 10x3/uL (130-400); RBC 3.68 10x6/uL (4.00-5.40); WBC 14.6 10x3/uL (4.8-10.8)
[2017-07-20 05:38] LABS: ANION GAP 14.3 mmol/L (8-16); CALCIUM 8.8 mg/dL (8.5-10.1); CARBON DIOXIDE 25.9 mmol/L (21.0-32.0); CREATININE - SERUM 4.9 mg/dL (0.6-1.3); PHOSPHOROUS 3.9 mg/dL (2.5-4.9); POTASSIUM - SERUM 3.2 mmol/L (3.5-5.1)
[2017-07-20 09:37] VITALS: BP 115/56
[2017-07-20 11:41] VITALS: BP 119/55
[2017-07-20 16:01] VITALS: BP 120/58
[2017-07-20 21:44] VITALS: BP 118/46
[2017-07-21 01:51] VITALS: BP 128/58
[2017-07-21 04:58] LABS: BASOPHILS 0 % (0-2); EOSINOPHILS 0.1 % (0-7); HEMATOCRIT 33.4 % (36.0-48.0); HEMOGLOBIN 10.8 g/dL (12-16); LYMPHOCYTES 3.3 % (15-50); MCH 29.6 pg (26.0-34.0); MCHC 32.3 g/dL (31.0-37.0); MCV 91.5 fL (80.0-100.0); MEAN PLATELET VOLUME 9.3 fL (7.4-10.4); MONOCYTES 4.4 % (2-11); NEUTROPHILS 91.2 % (40-80); PLATELET COUNT 300 10x3/uL (130-400); RBC 3.65 10x6/uL (4.00-5.40); RDW 17.2 % (11.5-14.5); WBC 13.2 10x3/uL (4.8-10.8)
[2017-07-21 05:13] LABS: ANION GAP 16.6 mmol/L (8-16); CALCIUM 8.4 mg/dL (8.5-10.1); CARBON DIOXIDE 24.8 mmol/L (21.0-32.0); CREATININE - SERUM 6.2 mg/dL (0.6-1.3); POTASSIUM - SERUM 4.4 mmol/L (3.5-5.1)
[2017-07-21 05:58] VITALS: BP 128/55
[2017-07-21 07:48] VITALS: BP 115/60
[2017-07-21 10:52] VITALS: BP 112/73
[2017-07-21 19:00] VITALS: BP 122/55
[2017-07-22 04:00] VITALS: BP 101/45
[2017-07-22 07:55] VITALS: BP 129/54
[2017-07-22 11:37] VITALS: BP 112/49
[2017-07-22 15:37] VITALS: BP 133/64
[2017-07-22 19:00] VITALS: BP 130/53
[2017-07-23 04:00] VITALS: BP 147/79
[2017-07-23 05:19] LABS: BASOPHILS 0 % (0-2); EOSINOPHILS 0 % (0-7); HEMATOCRIT 34.3 % (36.0-48.0); HEMOGLOBIN 11.3 g/dL (12-16); IMMATURE GRANULOCYTES 1.2 % (0-5); MCHC 32.9 g/dL (31.0-37.0); MEAN PLATELET VOLUME 8.7 fL (7.4-10.4); MONOCYTES 7.1 % (2-11); NEUTROPHILS 88.7 % (40-80); PLATELET COUNT 295 10x3/uL (130-400); RBC 3.77 10x6/uL (4.00-5.40); RDW 18.8 % (11.5-14.5); WBC 13.1 10x3/uL (4.8-10.8)
[2017-07-23 05:32] LABS: ANION GAP 14.4 mmol/L (8-16); CALCIUM 9.1 mg/dL (8.5-10.1); CARBON DIOXIDE 25.3 mmol/L (21.0-32.0); CREATININE - SERUM 5.8 mg/dL (0.6-1.3); POTASSIUM - SERUM 3.7 mmol/L (3.5-5.1)
[2017-07-23 07:00] VITALS: BP 136/66
[2017-07-23 21:39] VITALS: BP 147/69
[2017-07-24 03:30] VITALS: BP 117/53
[2017-07-24 06:22] LABS: BASOPHILS 0.1 % (0-2); EOSINOPHILS 0 % (0-7); HEMATOCRIT 34.3 % (36.0-48.0); HEMOGLOBIN 11.1 g/dL (12-16); IMMATURE GRANULOCYTES 0.9 % (0-5); LYMPHOCYTES 3.7 % (15-50); MCHC 32.4 g/dL (31.0-37.0); MCV 92.7 fL (80.0-100.0); MEAN PLATELET VOLUME 9.3 fL (7.4-10.4); MONOCYTES 6.4 % (2-11); NEUTROPHILS 88.9 % (40-80); PLATELET COUNT 324 10x3/uL (130-400); RDW 19.5 % (11.5-14.5); WBC 13.1 10x3/uL (4.8-10.8)
[2017-07-24 06:36] LABS: ANION GAP 18.3 mmol/L (8-16); CALCIUM 8.9 mg/dL (8.5-10.1); CARBON DIOXIDE 24.5 mmol/L (21.0-32.0); CREATININE - SERUM 7.1 mg/dL (0.6-1.3); POTASSIUM - SERUM 3.8 mmol/L (3.5-5.1)
[2017-07-24 08:56] VITALS: BP 114/55
[2017-07-24] MEDS ORDERED: MIDODRINE HCL5 MG PO (12:34)
[2017-07-24] MEDS ORDERED: CARAFATE1 G/10 ML PO (12:36)
[2017-07-24] MEDS ORDERED: CALMOSEPTINE OI71 GM TOPICAL (12:38)
[2017-07-24] MEDS ORDERED: PREDNISONE10 MG PO (12:38)
[2017-07-24 16:19] VITALS: BP 93/44
[2017-07-24 19:00] VITALS: BP 129/58
[2017-07-25 04:00] VITALS: BP 152/95
[2017-07-25 07:23] LABS: BASOPHILS 0 % (0-2); EOSINOPHILS 0.1 % (0-7); HEMATOCRIT 33.3 % (36.0-48.0); HEMOGLOBIN 10.7 g/dL (12-16); IMMATURE GRANULOCYTES 0.8 % (0-5); LYMPHOCYTES 2.8 % (15-50); MCH 30.1 pg (26.0-34.0); MCHC 32.1 g/dL (31.0-37.0); MCV 93.8 fL (80.0-100.0); MEAN PLATELET VOLUME 9.2 fL (7.4-10.4); MONOCYTES 4.2 % (2-11); NEUTROPHILS 92.1 % (40-80); PLATELET COUNT 302 10x3/uL (130-400); RBC 3.55 10x6/uL (4.00-5.40); RDW 19.3 % (11.5-14.5); WBC 14.2 10x3/uL (4.8-10.8)
[2017-07-25 07:37] LABS: ANION GAP 14.4 mmol/L (8-16); CALCIUM 8.7 mg/dL (8.5-10.1); CARBON DIOXIDE 28.3 mmol/L (21.0-32.0); PHOSPHOROUS 5.1 mg/dL (2.5-4.9); POTASSIUM - SERUM 3.7 mmol/L (3.5-5.1)
[2017-07-25 08:26] VITALS: BP 141/54
[2017-07-25 12:23] VITALS: BP 127/60
[2017-07-25 15:17] VITALS: BP 135/82
[2017-07-25 22:25] VITALS: BP 124/71; BP 165/69
[2017-07-26 01:27] VITALS: BP 149/73
[2017-07-26 06:18] LABS: BASOPHILS 0 % (0-2); EOSINOPHILS 0.1 % (0-7); HEMOGLOBIN 10.9 g/dL (12-16); IMMATURE GRANULOCYTES 0.8 % (0-5); LYMPHOCYTES 3.7 % (15-50); MCH 29.9 pg (26.0-34.0); MCHC 32.1 g/dL (31.0-37.0); MCV 93.4 fL (80.0-100.0); MEAN PLATELET VOLUME 8.9 fL (7.4-10.4); MONOCYTES 3.9 % (2-11); NEUTROPHILS 91.5 % (40-80); PLATELET COUNT 285 10x3/uL (130-400); RBC 3.64 10x6/uL (4.00-5.40); WBC 12.6 10x3/uL (4.8-10.8)
[2017-07-26 06:19] LABS: ANION GAP 15.6 mmol/L (8-16); CALCIUM 8.9 mg/dL (8.5-10.1); CARBON DIOXIDE 26.2 mmol/L (21.0-32.0); POTASSIUM - SERUM 3.8 mmol/L (3.5-5.1)
[2017-07-26 06:28] VITALS: BP 134/70
[2017-07-26 08:06] LABS: INR 1.3 (0.85-1.17); PROTIME 15.7 SECONDS (11.6-15.0)
[2017-07-26 08:12] VITALS: BP 122/51
[2017-07-26 12:15] VITALS: BP 125/52
[2017-07-26 12:55] LABS: HEMATOCRIT 35.7 % (36.0-48.0); HEMOGLOBIN 11.2 g/dL (12-16)
[2017-07-26 16:42] VITALS: BP 119/56
[2017-07-26 18:38] LABS: HEMATOCRIT 34.1 % (36.0-48.0); HEMOGLOBIN 10.9 g/dL (12-16)
[2017-07-26 20:00] VITALS: BP 124/68
[2017-07-27] VITALS: BP 120/70
[2017-07-27 00:16] LABS: HEMATOCRIT 32.3 % (36.0-48.0); HEMOGLOBIN 10.5 g/dL (12-16)
[2017-07-27 04:00] VITALS: BP 120/62
[2017-07-27 05:52] LABS: BASOPHILS 0.1 % (0-2); EOSINOPHILS 0.1 % (0-7); HEMATOCRIT 32.8 % (36.0-48.0); HEMOGLOBIN 10.6 g/dL (12-16); IMMATURE GRANULOCYTES 0.3 % (0-5); LYMPHOCYTES 2.9 % (15-50); MCHC 32.3 g/dL (31.0-37.0); MCV 92.9 fL (80.0-100.0); MEAN PLATELET VOLUME 9.1 fL (7.4-10.4); MONOCYTES 2.9 % (2-11); NEUTROPHILS 93.7 % (40-80); PLATELET COUNT 286 10x3/uL (130-400); RBC 3.53 10x6/uL (4.00-5.40); RDW 20.1 % (11.5-14.5); WBC 13.2 10x3/uL (4.8-10.8)
[2017-07-27 06:04] LABS: INR 1.23 (0.85-1.17); PROTIME 15.1 SECONDS (11.6-15.0)
[2017-07-27 06:20] LABS: ANION GAP 22.1 mmol/L (8-16); CALCIUM 8.9 mg/dL (8.5-10.1); CARBON DIOXIDE 22.9 mmol/L (21.0-32.0); PHOSPHOROUS 5.8 mg/dL (2.5-4.9)
[2017-07-27 10:26] VITALS: BP 133/66
[2017-07-27 11:36] LABS: HEMATOCRIT 35.7 % (36.0-48.0); HEMOGLOBIN 11.6 g/dL (12-16)
[2017-07-27 13:11] VITALS: BP 125/72
[2017-07-27 17:19] LABS: HEMOGLOBIN 10.8 g/dL (12-16)
[2017-07-27 21:38] VITALS: BP 130/67
[2017-07-28 01:44] VITALS: BP 111/49
[2017-07-28 05:24] LABS: HEMATOCRIT 35.2 % (36.0-48.0); HEMOGLOBIN 11.2 g/dL (12-16); LYMPHOCYTES 1.5 % (15-50); MCH 29.8 pg (26.0-34.0); MCHC 31.8 g/dL (31.0-37.0); MCV 93.6 fL (80.0-100.0); NEUTROPHILS 95.4 % (40-80); PLATELET COUNT 254 10x3/uL (130-400); RBC 3.76 10x6/uL (4.00-5.40); RDW 20.8 % (11.5-14.5)
[2017-07-28 05:40] VITALS: BP 101/52
[2017-07-28 05:54] LABS: ANION GAP 18.4 mmol/L (8-16); CALCIUM 9.1 mg/dL (8.5-10.1); CARBON DIOXIDE 24.3 mmol/L (21.0-32.0); CREATININE - SERUM 6.2 mg/dL (0.6-1.3); PHOSPHOROUS 5.5 mg/dL (2.5-4.9); POTASSIUM - SERUM 3.7 mmol/L (3.5-5.1)
[2017-07-28 12:02] VITALS: BP 114/56
[2017-07-28 15:37] VITALS: BP 107/56
[2017-07-28 21:18] VITALS: BP 129/51
[2017-07-29 05:30] LABS: BASOPHILS 0 % (0-2); EOSINOPHILS 0 % (0-7); HEMATOCRIT 33.6 % (36.0-48.0); HEMOGLOBIN 10.9 g/dL (12-16); IMMATURE GRANULOCYTES 0.4 % (0-5); LYMPHOCYTES 2.1 % (15-50); MCHC 32.4 g/dL (31.0-37.0); MCV 92.6 fL (80.0-100.0); MEAN PLATELET VOLUME 9.6 fL (7.4-10.4); MONOCYTES 2.6 % (2-11); NEUTROPHILS 94.9 % (40-80); PLATELET COUNT 237 10x3/uL (130-400); RBC 3.63 10x6/uL (4.00-5.40); RDW 19.7 % (11.5-14.5); WBC 20.1 10x3/uL (4.8-10.8)
[2017-07-29 05:37] LABS: ALBUMIN 1.6 g/dL (3.4-5.0); ANION GAP 19.5 mmol/L (8-16); BILIRUBIN - DIRECT 0.06 mg/dL (0.00-0.30); BILIRUBIN - INDIRECT 0.33 mg/dL (0.00-1.00); BILIRUBIN - TOTAL 0.39 mg/dL (0.2-1.3); CARBON DIOXIDE 23.3 mmol/L (21.0-32.0); CREATININE - SERUM 7.2 mg/dL (0.6-1.3); POTASSIUM - SERUM 3.8 mmol/L (3.5-5.1); PROTEIN - SERUM 5.4 g/dL (6.4-8.2)
[2017-07-29 06:37] VITALS: BP 130/63
[2017-07-29 08:21] VITALS: BP 145/72
[2017-07-29 10:38] LABS: HEMATOCRIT 35.4 % (36.0-48.0); HEMOGLOBIN 11.6 g/dL (12-16)
[2017-07-29 10:43] VITALS: BP 120/66
[2017-07-29 14:55] VITALS: BP 116/64
[2017-07-29 17:24] LABS: HEMATOCRIT 34.5 % (36.0-48.0); HEMOGLOBIN 11.3 g/dL (12-16)
[2017-07-29 19:00] VITALS: BP 125/71
[2017-07-30] VITALS: BP 140/71
[2017-07-30 04:00] VITALS: BP 130/62
[2017-07-30 07:06] LABS: BASOPHILS 0.1 % (0-2); EOSINOPHILS 0 % (0-7); HEMATOCRIT 33.1 % (36.0-48.0); HEMOGLOBIN 10.6 g/dL (12-16); IMMATURE GRANULOCYTES 0.3 % (0-5); LYMPHOCYTES 2.5 % (15-50); MCH 29.4 pg (26.0-34.0); MCV 91.9 fL (80.0-100.0); MEAN PLATELET VOLUME 9.3 fL (7.4-10.4); MONOCYTES 2.7 % (2-11); NEUTROPHILS 94.4 % (40-80); PLATELET COUNT 213 10x3/uL (130-400); WBC 17.8 10x3/uL (4.8-10.8)
[2017-07-30 07:18] LABS: ANION GAP 21.7 mmol/L (8-16); CALCIUM 9.2 mg/dL (8.5-10.1); CARBON DIOXIDE 21.4 mmol/L (21.0-32.0); CREATININE - SERUM 8.4 mg/dL (0.6-1.3); POTASSIUM - SERUM 4.1 mmol/L (3.5-5.1)
[2017-07-30 08:29] VITALS: BP 117/60
[2017-07-30 09:32] LABS: HEMATOCRIT 33.9 % (36.0-48.0); HEMOGLOBIN 10.9 g/dL (12-16)
[2017-07-30 11:09] VITALS: BP 96/51
[2017-07-30 14:49] VITALS: BP 117/60
[2017-07-30 17:49] LABS: HEMATOCRIT 28.9 % (36.0-48.0); HEMOGLOBIN 9.1 g/dL (12-16)
[2017-07-30 20:30] VITALS: BP 110/53
[2017-07-31 00:30] VITALS: BP 131/78
[2017-07-31 04:00] VITALS: BP 107/054
[2017-07-31 04:51] LABS: BASOPHILS 0.1 % (0-2); EOSINOPHILS 0 % (0-7); HEMATOCRIT 35.9 % (36.0-48.0); HEMOGLOBIN 11.4 g/dL (12-16); IMMATURE GRANULOCYTES 0.7 % (0-5); MCHC 31.8 g/dL (31.0-37.0); MCV 91.3 fL (80.0-100.0); MEAN PLATELET VOLUME 9.8 fL (7.4-10.4); MONOCYTES 3.1 % (2-11); NEUTROPHILS 92.1 % (40-80); PLATELET COUNT 240 10x3/uL (130-400); RBC 3.93 10x6/uL (4.00-5.40); RDW 19.9 % (11.5-14.5); WBC 14.9 10x3/uL (4.8-10.8)
[2017-07-31 04:57] LABS: ANION GAP 20.8 mmol/L (8-16); CALCIUM 9.1 mg/dL (8.5-10.1); CARBON DIOXIDE 20.6 mmol/L (21.0-32.0); CREATININE - SERUM 8.6 mg/dL (0.6-1.3); POTASSIUM - SERUM 4.4 mmol/L (3.5-5.1)
[2017-07-31 08:20] VITALS: BP 101/51
[2017-07-31 09:11] LABS: HEMATOCRIT 36.1 % (36.0-48.0); HEMOGLOBIN 11.8 g/dL (12-16)
[2017-07-31 11:56] VITALS: BP 143/73
[2017-07-31 15:35] VITALS: BP 121/67
[2017-07-31 19:00] VITALS: BP 131/78
[2017-08-01 04:00] VITALS: BP 173/81
[2017-08-01 05:13] LABS: BASOPHILS 0 % (0-2); EOSINOPHILS 0 % (0-7); HEMATOCRIT 37.4 % (36.0-48.0); HEMOGLOBIN 12.2 g/dL (12-16); LYMPHOCYTES 7.3 % (15-50); MCH 29.7 pg (26.0-34.0); MCHC 32.6 g/dL (31.0-37.0); MEAN PLATELET VOLUME 9.9 fL (7.4-10.4); MONOCYTES 4.3 % (2-11); NEUTROPHILS 87.4 % (40-80); PLATELET COUNT 271 10x3/uL (130-400); RBC 4.11 10x6/uL (4.00-5.40); RDW 20.4 % (11.5-14.5)
[2017-08-01 05:33] LABS: ANION GAP 28.9 mmol/L (8-16); CALCIUM 9.5 mg/dL (8.5-10.1); CREATININE - SERUM 9.4 mg/dL (0.6-1.3); POTASSIUM - SERUM 4.9 mmol/L (3.5-5.1)
[2017-08-01 08:37] VITALS: BP 105/52
[2017-08-01 12:13] VITALS: BP 81/43
[2017-08-01 16:46] VITALS: BP 86/49
[2017-08-01 21:47] VITALS: BP 109/61
[2017-08-02 01:54] VITALS: BP 102/61
[2017-08-02 05:28] LABS: BASOPHILS 0.1 % (0-2); EOSINOPHILS 0 % (0-7); HEMATOCRIT 36.5 % (36.0-48.0); HEMOGLOBIN 11.9 g/dL (12-16); LYMPHOCYTES 10.4 % (15-50); MCH 29.8 pg (26.0-34.0); MCHC 32.6 g/dL (31.0-37.0); MCV 91.3 fL (80.0-100.0); MEAN PLATELET VOLUME 10.2 fL (7.4-10.4); MONOCYTES 3.7 % (2-11); NEUTROPHILS 84.8 % (40-80); PLATELET COUNT 212 10x3/uL (130-400); RDW 21.2 % (11.5-14.5); WBC 22.9 10x3/uL (4.8-10.8)
[2017-08-02 05:36] LABS: ALBUMIN 1.5 g/dL (3.4-5.0); ANION GAP 24.6 mmol/L (8-16); BILIRUBIN - DIRECT 0.23 mg/dL (0.00-0.30); BILIRUBIN - INDIRECT 0.57 mg/dL (0.00-1.00); BILIRUBIN - TOTAL 0.8 mg/dL (0.2-1.3); CALCIUM 9.9 mg/dL (8.5-10.1); CARBON DIOXIDE 17.5 mmol/L (21.0-32.0); CREATININE - SERUM 9.2 mg/dL (0.6-1.3); POTASSIUM - SERUM 5.1 mmol/L (3.5-5.1); PROTEIN - SERUM 5.2 g/dL (6.4-8.2); VANCOMYCIN - RANDOM 21.4 ug/mL (10.0-20.0)
[2017-08-02 05:53] VITALS: BP 128/66
[2017-08-02 07:46] LABS: INR 2.26 (0.85-1.17); PROTIME 24.3 SECONDS (11.6-15.0)
[2017-08-02 08:11] VITALS: BP 98/69
[2017-08-02 11:44] VITALS: BP 101/71
[2017-08-02 15:24] VITALS: BP 106/61
[2017-08-02 19:00] VITALS: BP 119/68
[2017-08-03 04:52] VITALS: BP 138/78
[2017-08-03 06:09] LABS: INR 2.28 (0.85-1.17); PROTIME 24.5 SECONDS (11.6-15.0)
[2017-08-03 06:13] LABS: BASOPHILS 0.1 % (0-2); EOSINOPHILS 0 % (0-7); HEMATOCRIT 34.1 % (36.0-48.0); HEMOGLOBIN 11.1 g/dL (12-16); IMMATURE GRANULOCYTES 0.9 % (0-5); LYMPHOCYTES 9.3 % (15-50); MCH 29.4 pg (26.0-34.0); MCHC 32.6 g/dL (31.0-37.0); MCV 90.5 fL (80.0-100.0); MEAN PLATELET VOLUME 10.3 fL (7.4-10.4); NEUTROPHILS 86.7 % (40-80); PLATELET COUNT 198 10x3/uL (130-400); RBC 3.77 10x6/uL (4.00-5.40); WBC 21.6 10x3/uL (4.8-10.8)
[2017-08-03 06:14] LABS: ANION GAP 27.7 mmol/L (8-16); CALCIUM 9.7 mg/dL (8.5-10.1); CARBON DIOXIDE 14.8 mmol/L (21.0-32.0); CREATININE - SERUM 9.3 mg/dL (0.6-1.3); POTASSIUM - SERUM 5.5 mmol/L (3.5-5.1)
[2017-08-03 08:19] VITALS: BP 108/61
[2017-08-03 11:32] VITALS: BP 108/58
[2017-08-03 13:37] LABS: ALBUMIN 1.4 g/dL (3.4-5.0); BILIRUBIN - DIRECT 0.24 mg/dL (0.00-0.30); BILIRUBIN - INDIRECT 0.61 mg/dL (0.00-1.00); BILIRUBIN - TOTAL 0.85 mg/dL (0.2-1.3); PROTEIN - SERUM 4.9 g/dL (6.4-8.2)
[2017-08-03 15:44] VITALS: BP 113/69
[2017-08-03 20:53] VITALS: BP 141/62
[2017-08-04 05:39] LABS: BASOPHILS 0.1 % (0-2); EOSINOPHILS 0.1 % (0-7); HEMATOCRIT 33.2 % (36.0-48.0); HEMOGLOBIN 10.9 g/dL (12-16); IMMATURE GRANULOCYTES 0.9 % (0-5); LYMPHOCYTES 13.6 % (15-50); MCH 29.9 pg (26.0-34.0); MCHC 32.8 g/dL (31.0-37.0); MEAN PLATELET VOLUME 9.7 fL (7.4-10.4); MONOCYTES 3.2 % (2-11); NEUTROPHILS 82.1 % (40-80); RBC 3.65 10x6/uL (4.00-5.40); RDW 22.2 % (11.5-14.5); WBC 19.6 10x3/uL (4.8-10.8)
[2017-08-04 05:52] LABS: PLATELET COUNT 153 10x3/uL (130-400)
[2017-08-04 05:57] LABS: INR 2.27 (0.85-1.17); PROTIME 24.4 SECONDS (11.6-15.0)
[2017-08-04 06:08] VITALS: BP 130/50
[2017-08-04 06:14] LABS: ANION GAP 28.6 mmol/L (8-16); CALCIUM 8.5 mg/dL (8.5-10.1); CARBON DIOXIDE 16.6 mmol/L (21.0-32.0); CREATININE - SERUM 9.3 mg/dL (0.6-1.3); POTASSIUM - SERUM 5.2 mmol/L (3.5-5.1); VANCOMYCIN - RANDOM 29.7 ug/mL (10.0-20.0)
[2017-08-04 07:51] VITALS: BP 90/54
[2017-08-04 15:30] VITALS: BP 69/33
[2017-08-04 19:00] VITALS: BP 100/25
== END 2017-08-05 02:55 | DRG 252 ==
LOC: D.M2 10:34 → D.ICU 10:34 → D.M2 07-17 17:58
PROVIDERS: Internal Medicine; Internal Medicine Gastroenterology; Internal Medicine Interventional Cardiology; Internal Medicine Nephrology; Specialist
PROC: B4101ZZ Fluoroscopy of Abdominal Aorta using Low Osmolar Contrast (ICD-10-PCS; principal; 2017-06-29 10:00)
PROC: 5A1D70Z Performance of Urinary Filtration, Intermittent, Less than 6 Hours Per Day (ICD-10-PCS; 2017-06-30)
PROC: 047L3DZ Dilation of Left Femoral Artery with Intraluminal Device, Percutaneous Approach (ICD-10-PCS; 2017-06-30 12:00)
PROC: B41F1ZZ Fluoroscopy of Right Lower Extremity Arteries using Low Osmolar Contrast (ICD-10-PCS; 2017-07-04)
PROC: 02HV33Z Insertion of Infusion Device into Superior Vena Cava, Percutaneous Approach (ICD-10-PCS; 2017-07-14)
PROC: 02HV33Z Insertion of Infusion Device into Superior Vena Cava, Percutaneous Approach (ICD-10-PCS; 2017-07-14)
DX: I70.263 Atherosclerosis of native arteries of extremities with gangrene, bilateral legs (principal); A41.9 Sepsis, unspecified organism; N18.6 End stage renal disease; K72.00 Acute and subacute hepatic failure without coma; I70.92 Chronic total occlusion of artery of the extremities; I12.0 Hypertensive chronic kidney disease with stage 5 chronic kidney disease or end stage renal disease; K62.5 Hemorrhage of anus and rectum; Z99.2 Dependence on renal dialysis; D63.1 Anemia in chronic kidney disease; E78.5 Hyperlipidemia, unspecified; E83.39 Other disorders of phosphorus metabolism; I25.10 Atherosclerotic heart disease of native coronary artery without angina pectoris; Z66 Do not resuscitate; E16.2 Hypoglycemia, unspecified; E87.6 Hypokalemia